=== PATIENT | male | born 1965 | race Caucasian/White ===

== ENCOUNTER → 2017-08-30 13:48 | Outpatient (POV) | payer OTHER, SELFPAY ==
[2017-08-30 15:27] LABS: Basophils % 0.2 % (0.1-2.0); Eosinophils # 0.1 K/mm3 (0.0-0.4); Eosinophils % 0.4 % (0.1-12.0); Hematocrit 35.8 % (42.0-52.0); Hemoglobin 11.1 g/dL (14.1-18.0); Lymphocytes % 9.6 K/mm3 (10-50); Mean Corpuscular HGB Conc 31.1 g/dL (31.8-35.4); Mean Corpuscular Volume 93.3 fl (80-94); Monocytes # 1.4 K/mm3 (0.1-1.0); Monocytes % 6.5 % (1.7-9.3); Neutrophils # 17.6 K/mm3 (1.8-7.8); Neutrophils % 83.4 % (37.0-80.0); Platelet Count 723 K/mm3 (142-424); Red Blood Count 3.83 M/mm3 (4.60-6.20); Red Cell Distribution Width 14.9 % (11.5-17.5); White Blood Count 21.1 K/mm3 (4.8-10.8)
[2017-08-30 15:36] LABS: MANUAL DIFFERENTIAL MANUAL DIFFERENTIAL (MANUAL DIFF)
[2017-08-30 16:45] LABS: Alanine Aminotransferase 21 U/L (12-78); Albumin Level 2.7 gm/dL (3.4-5.0); Albumin/Globulin Ratio 0.7 (1.1-1.8); Alkaline Phosphatase 86 U/L (46-116); Anion Gap 13.2 mEq/L (5-15); Aspartate Amino Transferase 11 U/L (15-37); Bilirubin,Total 0.1 mg/dL (0.2-1.0); Blood Urea Nitrogen 14 mg/dL (7-18); C-Reactive Protein 11.2 mg/L (0.0-0.9); Calcium 8.7 mg/dL (8.5-10.1); Carbon Dioxide 31 mmol/L (21.0-32.0); Chloride 103 mmol/L (98-107); Creatinine,Serum 0.72 mg/dL (0.70-1.30); Estimated Glomerular Filt Rate 116 ml/min (>60); Ferritin 91 ng/mL (8-388); GFR (African American) 140 ML/MIN (>60); Globulin 4.1 gm/dl (1.3-3.2); Glucose 93 mg/dL (74-106); Potassium 4.2 mmoL/L (3.5-5.1); Sodium 143 mmol/L (136-145); Total Protein,Serum 6.8 gm/dL (6.4-8.2)
[2017-08-30 16:46] LABS: Erythrocyte Sedimentation Rate 70 mm/hr (0-15)
[2017-08-30 16:51] LABS: Eosinophils % 3 % (0-3); Lymphocytes % 4 % (10-50); Monocytes % 15 % (2-9); Neutrophils % 74 % (42-76); Platelet Estimate Marked Increase; Total Cells Counted 100
[2017-08-30 16:52] LABS: RBC Morphology KN
[2017-09-01 08:23] LABS: Iron 12 ug/dL (38-169); UIBC 244 ug/dL (111-343)
[2017-09-01 16:20] LABS: Cytoplasmic (C-ANCA) <1:20 titer (Neg:<1:20)
[2017-09-03 10:49] LABS: Iron Saturation 5 % (15-55)
[2017-09-03 10:50] LABS: Deamidated Gliadin Abs, IgA 5 units (0-19); Deamidated Gliadin Abs, IgG 3 units (0-19); Perinuclear (P-ANCA) <1:20 titer (Neg:<1:20); Tissue Transglutaminase IgA Ab <2 U/mL (0-3); Tissue Transglutaminase IgG Ab <2 U/mL (0-5); Vitamin B12 394 pg/mL (232-1245)
[2017-09-03 11:06] LABS: Reticulin IgA Antibody Negative titer (Neg:<1:2.5)
[2017-09-03 18:12] LABS: Saccharomyces cerevisiae, IgA <20.0 Units (0.0-24.9); Saccharomyces cerevisiae, IgG <20.0 Units (0.0-24.9)
== END ==
PROVIDERS: Visit Provider Nurse Practitioner Acute Care
DX: R19.7 Diarrhea, unspecified (principal)
CPT/HCPCS: 36415; 80053; 82607; 82652; 82728; 83516; 83550; 85007; 85025; 85651; 86140; 86256

== ENCOUNTER → 2017-09-02 09:00 | Outpatient (CLI) | payer OTHER, SELFPAY ==
[2017-09-05 02:51] LABS: H. pylori Stool Ag, EIA Positive (Negative)
== END ==
PROVIDERS: PCP Nurse Practitioner Acute Care; Visit Provider Nurse Practitioner Acute Care
DX: R19.7 Diarrhea, unspecified (principal)
CPT/HCPCS: 87338

== ENCOUNTER → 2017-09-06 14:54 | Outpatient (CLI) | payer OTHER, SELFPAY ==
[2017-09-06 14:59] LABS: Adenovirus F 40/41, stool Not Detected (NotDetected); Astrovirus Not Detected (NotDetected); Campylobacter Not Detected (NotDetected); Cryptosporidium Not Detected (NotDetected); Cyclospora Cayetanesis Not Detected (NotDetected); Entamoeba histolytica Not Detected (NotDetected); Enteroaggregative E coli Not Detected (NotDetected); Enteropathogenic E coli Not Detected (NotDetected); Enterotoxigenic E coli Not Detected (NotDetected); Giardia lamblia Not Detected (NotDetected); Norovirus Not Detected (NotDetected); Plesimonas Shigalloides, PCR Not Detected (NotDetected); Rotavirus A Not Detected (NotDetected); Salmonella, PCR Not Detected (NotDetected); Sapovirus Not Detected (NotDetected); Shiga-like toxin E coli Not Detected (NotDetected); Shigella Enterovasive E coli Not Detected (NotDetected); Vibrio Cholerae Not Detected (NotDetected); Vibrio, PCR Not Detected (NotDetected); Yersinia Entercolitica, PCR Not Detected (NotDetected)
[2017-09-06 18:05] LABS: Clostridium Difficile A/B, PCR Detected (NotDetected)
== END ==
PROVIDERS: PCP Internal Medicine Gastroenterology; Visit Provider Internal Medicine Gastroenterology
DX: R19.7 Diarrhea, unspecified (principal)
CPT/HCPCS: 87507

== ENCOUNTER 2017-10-04 11:04 | Day surgery (SDC) | payer OTHER, SELFPAY ==
[2017-10-04] VITALS (16 sets, daily range): BP systolic 87–128; BP diastolic 45–75; PULSE 54–75; RESP 16–18; TEMP 36.6–37.2; O2SAT 92–100; BMI 18.7
--- NOTE | 2017-10-04 13:32 | P.PCN_ITS ---
[facility] Procedure Note Procedure Note:: Upper Endoscopy Procedure Report: Esophagogastroduodenoscopy with cold biopsies Endoscopost: Adithya Covington II, MD Referring Physician: Kade Alarcon M.D. Date of Procedure: October 04, 2017 Equipment: Olympus GIF 180 standard upper endoscope Sedation: Fentanyl 200 mg IV/ Versed 9 mg IV Indications: Mr. Hallman is a 51-year-old gentleman with lower abdominal pain and generalized abdominal discomfort. He has had a loss of appetite with a 25-30 pound weight loss. He has noted some bright red and dark bowel movements with change in bowel habits. He will have some constipation which alternates with diarrhea. The patient did have a diarrhea PCR panel that was positive for clostridium difficile. The patient did have a hemoglobin and hematocrit of 11.1 and 35.8. His IBD serologies were negative and celiac serologies were negative. His iron saturation was 5%. His H pylori antigen testing was positive and he was treated for this C. difficile with Flagyl. He has had the change in bowel habits with more diarrhea over the last year. He will get some severe abdominal crampy discomfort. He reports no known family history of colon cancer. Procedure: Prior to the procedure, a history and physical exam was performed, and patient' s medications and allergies were reviewed. The risks, benefits and alternatives of the sedation and procedure were discussed with the patient. All questions were answered and informed consent was obtained. The patient was brought to the procedure room. Patient identification and proposed procedure were verified by the physician and the nurse. The patient was placed in a left lateral decubitus position and the scope was passed under direct vision. Throughout the procedure, the patient's blood pressure, pulse, and oxygen saturations were monitored continuously. The upper GI endoscopy was accomplished without difficulty. The patient tolerated the procedure well. Findings: The scope was passed directly into the upper esophagus and advanced to the third portion of the duodenum. The post bulbar duodenum and duodenal bulb were normal with normal mucosa and conniventes. The scope was withdrawn through a normal duodenal bulb and pylorus into the stomach. There was minimal linear erythema of the antrum. The remainder of the antrum, body and fundus of the stomach were grossly normal. Upon retroflexion there was a very small 1-2 cm hiatal hernia. 2 biopsies were taken in the antrum and along the lesser curvature for histology to rule out gastritis and/or H pylori. The scope was then withdrawn into the esophagus. There was a single tongue of salmon colored mucosa that was biopsied to rule out short segment Vance's esophagus. There was no evidence of reflux esophagitis or stricturing of the esophagus. The remainder of the esophageal mucosa was normal. Impression: 1. Nonerosive GERD with very small 1-2 cm hiatal hernia biopsies taken distal esophagus to rule out very short segment Vance's esophagus 2. Very mild reactive gastritis Plan: There was no source for the patient's abdominal pain, anemia or weight loss. I will proceed with diagnostic colonoscopy for further evaluation.
--- NOTE | 2017-10-04 13:33 | HMH.PROC ---
[facility] Procedure Note Procedure Note:: Colonoscopy Procedure Report: Colonoscopy with cold biopsies Endoscopist: Adithya Covington II, MD Referring physician: Kade Alarcon M.D. Date of Procedure: October 04, 2017 Equipment: Olympus 180 variable stiffness pediatric colonoscope Sedation: Fentanyl 300 mg IV/ Versed 15 mg IV Indication: Mr. Hallman is a 51-year-old gentleman with lower abdominal pain and generalized abdominal discomfort. He has had a loss of appetite with a 25-30 pound weight loss. He has noted some bright red and dark bowel movements with change in bowel habits. He will have some constipation which alternates with diarrhea. The patient did have a diarrhea PCR panel that was positive for clostridium difficile. The patient did have a hemoglobin and hematocrit of 11.1 and 35.8. His IBD serologies were negative and celiac serologies were negative. His iron saturation was 5%. His H pylori antigen testing was positive and he was treated for this C. difficile with Flagyl. He has had the change in bowel habits with more diarrhea over the last year. He will get some severe abdominal crampy discomfort. He reports no known family history of colon cancer. Procedure: Prior to the procedure, a history and physical exam was performed, and patient's medications and allergies were reviewed. The risks, benefits and alternatives of the sedation and procedure were discussed with the patient. All questions were answered and informed consent was obtained. The patient was brought to the procedure room. Patient identification and proposed procedure were verified by the physician and the nurse. The patient was placed in a left lateral decubitus position and the scope was passed under direct vision. Throughout the procedure, the patient's blood pressure, pulse, and oxygen saturations were monitored continuously. The colonoscopy was accomplished without difficulty. The patient tolerated the procedure well. Findings: On digital rectal examination there were minor external tags there was normal rectal tone. There was a mass palpable at 9-10 cm from the anal verge that was circumferential. The scope was then inserted through the anal canal into the rectum and advanced to the rectosigmoid region where there was a circumferential apple core partially obstructive colon mass which was very friable, fungating and obviously a rectosigmoid cancer that extended approximately 7-8 cm in length and was entirely circumferential. The colonoscope could with some difficulty be pushed through the stenotic proximal region of this apple core lesion and the scope was advanced to the hepatic flexure. The scope was not advanced further because of very poor preparation with liquid and solid stool. There was some proximal dilation to the colon most likely due to partial obstruction of the colon at the level of the apple core colon cancer lesion. Multiple biopsies were taken from this lesion. Impression: 1. Apple core stenotic circumferential mass lesion of rectosigmoid consistent with partially obstructive colon cancer (distal margin 9-10 cm from anal verge) Plan: I am going to speak with colorectal surgery and determine whether they would want to have temporary colonic stent to decompress the colon and then begin staging evaluation with subsequent low anterior resection. I will obtain CEA level and staging CT scan of the abdomen and pelvis.
== END 2017-10-04 15:00 | disposition home or self-care (01) ==
LOC: OUTP 11:07
PROVIDERS: PCP Family Medicine; Visit Provider Internal Medicine Gastroenterology
PROC: 0DJ08ZZ Inspection of Upper Intestinal Tract, Via Natural or Artificial Opening Endoscopic (ICD-10-PCS; CPT 43235; principal; 2017-10-04 12:00)
DX: C18.7 Malignant neoplasm of sigmoid colon (principal); K21.9 Gastro-esophageal reflux disease without esophagitis; K44.9 Diaphragmatic hernia without obstruction or gangrene; K29.70 Gastritis, unspecified, without bleeding
CPT/HCPCS: 45380; 43239; 99152; 99153

== ENCOUNTER → 2018-04-25 14:33 | Outpatient (CLI) | payer OTHER, SELFPAY ==
[2018-04-25 15:14] LABS: Basophils % 0.6 % (0.1-2.0); Eosinophils # 0.7 K/mm3 (0.0-0.4); Eosinophils % 11.6 % (0.1-12.0); Hemoglobin 11.5 g/dL (14.1-18.0); Lymphocytes # 0.7 K/mm3 (0.7-4.5); Lymphocytes % 11.1 K/mm3 (10-50); Mean Corpuscular HGB Conc 31.9 g/dL (31.8-35.4); Mean Corpuscular Hemoglobin 31.2 pg (27.0-31.2); Mean Corpuscular Volume 97.8 fl (80-94); Mean Platelet Volume 7.2 fl (7.4-10.4); Monocytes # 0.5 K/mm3 (0.1-1.0); Monocytes % 8.8 % (1.7-9.3); Neutrophils # 3.9 K/mm3 (1.8-7.8); Neutrophils % 67.8 % (37.0-80.0); Platelet Count 423 K/mm3 (142-424); Red Blood Count 3.68 M/mm3 (4.60-6.20); Red Cell Distribution Width 13.6 % (11.5-17.5); White Blood Count 5.8 K/mm3 (4.8-10.8)
[2018-04-25 17:03] LABS: Anion Gap 10.1 mEq/L (5-15); Blood Urea Nitrogen 18 mg/dL (7-18); Carbon Dioxide 31 mmol/L (21.0-32.0); Chloride 107 mmol/L (98-107); Creatinine,Serum 0.83 mg/dL (0.70-1.30); Estimated Glomerular Filt Rate 98 ml/min (>60); GFR (African American) 118 ML/MIN (>60); Glucose 103 mg/dL (74-106); Potassium 4.1 mmoL/L (3.5-5.1); Sodium 144 mmol/L (136-145)
== END ==
PROVIDERS: PCP Internal Medicine Adolescent Medicine; Visit Provider Surgery
DX: Z95.828 Presence of other vascular implants and grafts (principal)
CPT/HCPCS: 36415; 80048; 85025

== ENCOUNTER 2018-04-28 08:54 | Outpatient (CLI) | payer OTHER, SELFPAY ==
[2018-04-28] VITALS (14 sets, daily range): BP systolic 89–122; BP diastolic 54–72; PULSE 47–57; RESP 16–18; TEMP 36.6; O2SAT 100
== END 2018-04-28 13:20 | disposition home or self-care (01) ==
LOC: INF 08:57
PROVIDERS: PCP Internal Medicine Adolescent Medicine; Visit Provider Internal Medicine Medical Oncology
DX: Z51.11 Encounter for antineoplastic chemotherapy (principal); C18.9 Malignant neoplasm of colon, unspecified
CPT/HCPCS: 96413; 96415; J7060; J9263; Q0166

== ENCOUNTER 2018-05-19 08:45 | Outpatient (CLI) | payer OTHER, SELFPAY ==
[2018-05-19] VITALS (16 sets, daily range): BP systolic 89–115; BP diastolic 62–89; PULSE 64–89; RESP 18; TEMP 36.6; O2SAT 97
[2018-05-19 09:22] LABS: Basophils % 0.6 % (0.1-2.0); Eosinophils # 0.2 K/mm3 (0.0-0.4); Eosinophils % 4.1 % (0.1-12.0); Hematocrit 42.7 % (42.0-52.0); Hemoglobin 14.1 g/dL (14.1-18.0); Lymphocytes # 0.9 K/mm3 (0.7-4.5); Lymphocytes % 15.3 K/mm3 (10-50); Mean Corpuscular HGB Conc 33.1 g/dL (31.8-35.4); Mean Corpuscular Hemoglobin 32.3 pg (27.0-31.2); Mean Corpuscular Volume 97.5 fl (80-94); Mean Platelet Volume 7.1 fl (7.4-10.4); Monocytes # 0.8 K/mm3 (0.1-1.0); Monocytes % 13.1 % (1.7-9.3); Neutrophils # 3.8 K/mm3 (1.8-7.8); Neutrophils % 66.9 % (37.0-80.0); Platelet Count 540 K/mm3 (142-424); Red Blood Count 4.37 M/mm3 (4.60-6.20); White Blood Count 5.7 K/mm3 (4.8-10.8)
[2018-05-19 09:44] LABS: Alanine Aminotransferase 27 U/L (12-78); Albumin Level 4.1 gm/dL (3.4-5.0); Alkaline Phosphatase 137 U/L (46-116); Anion Gap 15.1 mEq/L (5-15); Aspartate Amino Transferase 18 U/L (15-37); Bilirubin,Total 0.6 mg/dL (0.2-1.0); Blood Urea Nitrogen 23 mg/dL (7-18); Calcium 9.6 mg/dL (8.5-10.1); Carbon Dioxide 27 mmol/L (21.0-32.0); Chloride 93 mmol/L (98-107); Creatinine,Serum 1.45 mg/dL (0.70-1.30); Estimated Glomerular Filt Rate 51 ml/min (>60); GFR (African American) 62 ML/MIN (>60); Globulin 4.3 gm/dl (1.3-3.2); Glucose 124 mg/dL (74-106); Potassium 4.1 mmoL/L (3.5-5.1); Sodium 131 mmol/L (136-145); Total Protein,Serum 8.4 gm/dL (6.4-8.2)
== END 2018-05-19 14:50 | disposition home or self-care (01) ==
LOC: INF 08:46
PROVIDERS: PCP Internal Medicine Adolescent Medicine; Visit Provider Internal Medicine Medical Oncology
DX: Z51.11 Encounter for antineoplastic chemotherapy (principal); C18.9 Malignant neoplasm of colon, unspecified; Z23 Encounter for immunization
CPT/HCPCS: 36415; 80053; 85025; 90686; 90732; 96413; 96415; J7060; J9263; Q0166

== ENCOUNTER → 2018-05-24 09:33 | Outpatient (CLI) | payer OTHER, SELFPAY ==
[2018-05-24 11:58] LABS: Alanine Aminotransferase 32 U/L (12-78); Albumin Level 3.7 gm/dL (3.4-5.0); Alkaline Phosphatase 128 U/L (46-116); Anion Gap 12.6 mEq/L (5-15); Aspartate Amino Transferase 110 U/L (15-37); Bilirubin,Total 0.5 mg/dL (0.2-1.0); Blood Urea Nitrogen 15 mg/dL (7-18); Calcium 9.1 mg/dL (8.5-10.1); Carbon Dioxide 27 mmol/L (21.0-32.0); Chloride 98 mmol/L (98-107); Creatinine,Serum 0.94 mg/dL (0.70-1.30); Estimated Glomerular Filt Rate 85 ml/min (>60); GFR (African American) 102 ML/MIN (>60); Globulin 3.7 gm/dl (1.3-3.2); Glucose 91 mg/dL (74-106); Potassium 4.6 mmoL/L (3.5-5.1); Sodium 133 mmol/L (136-145); Total Protein,Serum 7.4 gm/dL (6.4-8.2)
== END ==
PROVIDERS: Visit Provider Internal Medicine Medical Oncology
DX: C18.9 Malignant neoplasm of colon, unspecified (principal)
CPT/HCPCS: 36415; 80053

== ENCOUNTER 2018-06-09 10:11 | Outpatient (CLI) | payer OTHER, SELFPAY ==
[2018-06-09] VITALS (16 sets, daily range): BP systolic 85–112; BP diastolic 52–83; PULSE 53–74; RESP 16–18; TEMP 37.1; BMI 19.3
[2018-06-09 10:40] LABS: Basophils # 0.1 K/mm3 (0-0.2); Basophils % 0.9 % (0.1-2.0); Eosinophils # 0.5 K/mm3 (0.0-0.4); Eosinophils % 10.1 % (0.1-12.0); Hematocrit 35.7 % (42.0-52.0); Hemoglobin 11.9 g/dL (14.1-18.0); Lymphocytes # 0.8 K/mm3 (0.7-4.5); Lymphocytes % 17.3 % (10-50); Mean Corpuscular HGB Conc 33.3 g/dL (31.8-35.4); Mean Corpuscular Hemoglobin 33.2 pg (27.0-31.2); Mean Corpuscular Volume 99.7 fl (80-94); Mean Platelet Volume 7.5 fl (7.4-10.4); Monocytes # 0.7 K/mm3 (0.1-1.0); Monocytes % 14.6 % (1.7-9.3); Neutrophils # 2.8 K/mm3 (1.8-7.8); Neutrophils % 57.1 % (37.0-80.0); Platelet Count 381 K/mm3 (142-424); Red Blood Count 3.58 M/mm3 (4.60-6.20); Red Cell Distribution Width 21.1 % (11.5-17.5); White Blood Count 4.8 K/mm3 (4.8-10.8)
[2018-06-09 11:13] LABS: Alanine Aminotransferase 31 U/L (12-78); Albumin Level 3.5 gm/dL (3.4-5.0); Albumin/Globulin Ratio 0.8 (1.1-1.8); Alkaline Phosphatase 106 U/L (46-116); Anion Gap 11.3 mEq/L (5-15); Aspartate Amino Transferase 24 U/L (15-37); Bilirubin,Total 0.4 mg/dL (0.2-1.0); Blood Urea Nitrogen 13 mg/dL (7-18); Calcium 9.3 mg/dL (8.5-10.1); Carbon Dioxide 31 mmol/L (21.0-32.0); Chloride 97 mmol/L (98-107); Creatinine Clearance Estimated 92 mL/min (0-300); Creatinine,Serum 0.94 mg/dL (0.70-1.30); Estimated Glomerular Filt Rate 85 ml/min (>60); GFR (African American) 102 ML/MIN (>60); Globulin 4.3 gm/dl (1.3-3.2); Glucose 117 mg/dL (74-106); Potassium 3.3 mmoL/L (3.5-5.1); Sodium 136 mmol/L (136-145); Total Protein,Serum 7.8 gm/dL (6.4-8.2)
== END 2018-06-09 15:35 | disposition home or self-care (01) ==
LOC: INF 10:11
PROVIDERS: Visit Provider Internal Medicine Medical Oncology
DX: Z51.11 Encounter for antineoplastic chemotherapy (principal); C18.9 Malignant neoplasm of colon, unspecified
CPT/HCPCS: 80053; 85025; 96413; 96415; J7060; J9263; Q0166

== ENCOUNTER 2018-06-30 08:15 | Outpatient (CLI) | payer OTHER, SELFPAY ==
[2018-06-30] VITALS (15 sets, daily range): BP systolic 92–131; BP diastolic 57–76; PULSE 49–74; RESP 16–18; O2SAT 100; BMI 19.3
[2018-06-30 08:36] LABS: Basophils # 0.1 K/mm3 (0-0.2); Basophils % 1.2 % (0.1-2.0); Eosinophils # 0.4 K/mm3 (0.0-0.4); Eosinophils % 8.8 % (0.1-12.0); Hematocrit 36.3 % (42.0-52.0); Hemoglobin 11.7 g/dL (14.1-18.0); Lymphocytes # 0.8 K/mm3 (0.7-4.5); Mean Corpuscular HGB Conc 32.3 g/dL (31.8-35.4); Mean Corpuscular Hemoglobin 33.9 pg (27.0-31.2); Mean Corpuscular Volume 104.9 fl (80-94); Mean Platelet Volume 7.3 fl (7.4-10.4); Monocytes # 0.7 K/mm3 (0.1-1.0); Monocytes % 15.3 % (1.7-9.3); Neutrophils # 2.5 K/mm3 (1.8-7.8); Neutrophils % 56.7 % (37.0-80.0); Platelet Count 346 K/mm3 (142-424); Red Blood Count 3.46 M/mm3 (4.60-6.20); Red Cell Distribution Width 24.4 % (11.5-17.5); White Blood Count 4.4 K/mm3 (4.8-10.8)
[2018-06-30 08:48] LABS: Alanine Aminotransferase 38 U/L (12-78); Albumin Level 3.4 gm/dL (3.4-5.0); Albumin/Globulin Ratio 0.8 (1.1-1.8); Alkaline Phosphatase 106 U/L (46-116); Anion Gap 14.5 mEq/L (5-15); Aspartate Amino Transferase 24 U/L (15-37); Bilirubin,Total 0.4 mg/dL (0.2-1.0); Blood Urea Nitrogen 17 mg/dL (7-18); Calcium 8.8 mg/dL (8.5-10.1); Carbon Dioxide 26 mmol/L (21.0-32.0); Chloride 100 mmol/L (98-107); Creatinine Clearance Estimated 106 mL/min (50-200); Creatinine,Serum 0.82 mg/dL (0.70-1.30); Estimated Glomerular Filt Rate 99 ml/min (>60); GFR (African American) 120 ML/MIN (>60); Globulin 4.3 gm/dl (1.3-3.2); Glucose 97 mg/dL (74-106); Potassium 3.5 mmoL/L (3.5-5.1); Sodium 137 mmol/L (136-145); Total Protein,Serum 7.7 gm/dL (6.4-8.2)
== END 2018-06-30 14:45 | disposition home or self-care (01) ==
LOC: INF 08:15
PROVIDERS: Visit Provider Internal Medicine Medical Oncology
DX: Z51.11 Encounter for antineoplastic chemotherapy (principal); C18.9 Malignant neoplasm of colon, unspecified
CPT/HCPCS: 80053; 85025; 96413; 96415; J7060; J9263; Q0166

== ENCOUNTER 2018-07-21 08:25 | Outpatient (CLI) | payer OTHER, SELFPAY ==
[2018-07-21] VITALS (15 sets, daily range): BP systolic 96–123; BP diastolic 56–78; PULSE 43–56; RESP 16–18; TEMP 36.6–36.8; BMI 19.1
[2018-07-21 09:12] LABS: Basophils % 0.6 % (0.1-2.0); Eosinophils # 0.4 K/mm3 (0.0-0.4); Eosinophils % 7.4 % (0.1-12.0); Hematocrit 32.6 % (42.0-52.0); Hemoglobin 10.7 g/dL (14.1-18.0); Lymphocytes # 0.8 K/mm3 (0.7-4.5); Lymphocytes % 14.9 % (10-50); Mean Corpuscular HGB Conc 32.9 g/dL (31.8-35.4); Mean Corpuscular Hemoglobin 36.6 pg (27.0-31.2); Mean Corpuscular Volume 111.3 fl (80-94); Monocytes # 0.7 K/mm3 (0.1-1.0); Monocytes % 13.2 % (1.7-9.3); Neutrophils # 3.3 K/mm3 (1.8-7.8); Neutrophils % 63.8 % (37.0-80.0); Platelet Count 236 K/mm3 (142-424); Red Blood Count 2.93 M/mm3 (4.60-6.20); Red Cell Distribution Width 24.4 % (11.5-17.5); White Blood Count 5.2 K/mm3 (4.8-10.8)
[2018-07-21 09:19] LABS: Alanine Aminotransferase 36 U/L (12-78); Albumin Level 2.9 gm/dL (3.4-5.0); Albumin/Globulin Ratio 0.7 (1.1-1.8); Alkaline Phosphatase 110 U/L (46-116); Anion Gap 12.7 mEq/L (5-15); Aspartate Amino Transferase 29 U/L (15-37); Bilirubin,Total 0.3 mg/dL (0.2-1.0); Blood Urea Nitrogen 9 mg/dL (7-18); Calcium 8.6 mg/dL (8.5-10.1); Carbon Dioxide 25 mmol/L (21.0-32.0); Chloride 105 mmol/L (98-107); Creatinine Clearance Estimated 100 mL/min (50-200); Creatinine,Serum 0.86 mg/dL (0.70-1.30); Estimated Glomerular Filt Rate 94 ml/min (>60); GFR (African American) 113 ML/MIN (>60); Glucose 142 mg/dL (74-106); Potassium 3.7 mmoL/L (3.5-5.1); Sodium 139 mmol/L (136-145); Total Protein,Serum 6.9 gm/dL (6.4-8.2)
== END 2018-07-21 14:25 | disposition home or self-care (01) ==
LOC: INF 08:34
PROVIDERS: Visit Provider Internal Medicine Medical Oncology
DX: C18.9 Malignant neoplasm of colon, unspecified (principal)
CPT/HCPCS: 80053; 85025; 96413; 96415; J7060; J9263; Q0166

== ENCOUNTER 2018-08-11 09:25 | Outpatient (CLI) | payer OTHER, SELFPAY ==
[2018-08-11] VITALS (15 sets, daily range): BP systolic 95–129; BP diastolic 56–73; PULSE 49–67; RESP 16–18; BMI 19.5
[2018-08-11 09:54] LABS: Basophils # 0.1 K/mm3 (0-0.2); Eosinophils # 0.3 K/mm3 (0.0-0.4); Eosinophils % 7.2 % (0.1-12.0); Hematocrit 36.4 % (42.0-52.0); Hemoglobin 11.7 g/dL (14.1-18.0); Lymphocytes # 1.1 K/mm3 (0.7-4.5); Lymphocytes % 23.4 % (10-50); Mean Corpuscular HGB Conc 32.2 g/dL (31.8-35.4); Mean Corpuscular Hemoglobin 37.3 pg (27.0-31.2); Mean Corpuscular Volume 115.8 fl (80-94); Mean Platelet Volume 7.9 fl (7.4-10.4); Monocytes # 0.8 K/mm3 (0.1-1.0); Monocytes % 18.3 % (1.7-9.3); Neutrophils # 2.2 K/mm3 (1.8-7.8); Neutrophils % 50.1 % (37.0-80.0); Platelet Count 274 K/mm3 (142-424); Red Blood Count 3.14 M/mm3 (4.60-6.20); Red Cell Distribution Width 23.3 % (11.5-17.5); White Blood Count 4.5 K/mm3 (4.8-10.8)
[2018-08-11 10:06] LABS: Alanine Aminotransferase 32 U/L (12-78); Albumin Level 3.2 gm/dL (3.4-5.0); Albumin/Globulin Ratio 0.7 (1.1-1.8); Alkaline Phosphatase 145 U/L (46-116); Anion Gap 12.8 mEq/L (5-15); Aspartate Amino Transferase 30 U/L (15-37); Bilirubin,Total 0.4 mg/dL (0.2-1.0); Blood Urea Nitrogen 11 mg/dL (7-18); Calcium 8.9 mg/dL (8.5-10.1); Carbon Dioxide 26 mmol/L (21.0-32.0); Chloride 102 mmol/L (98-107); Creatinine Clearance Estimated 128 mL/min (50-200); Estimated Glomerular Filt Rate 119 ml/min (>60); GFR (African American) 144 ML/MIN (>60); Globulin 4.5 gm/dl (1.3-3.2); Glucose 122 mg/dL (74-106); Potassium 3.8 mmoL/L (3.5-5.1); Sodium 137 mmol/L (136-145); Total Protein,Serum 7.7 gm/dL (6.4-8.2)
== END 2018-08-11 16:05 | disposition home or self-care (01) ==
LOC: INF 09:29
PROVIDERS: Visit Provider Internal Medicine Medical Oncology
DX: Z51.11 Encounter for antineoplastic chemotherapy (principal); C18.9 Malignant neoplasm of colon, unspecified
CPT/HCPCS: 80053; 85025; 96413; 96415; J7060; J9263; Q0166

== ENCOUNTER 2018-09-01 10:07 | Outpatient (CLI) | payer OTHER, SELFPAY ==
[2018-09-01 10:27] LABS: Basophils # 0.1 K/mm3 (0-0.2); Eosinophils # 0.5 K/mm3 (0.0-0.4); Eosinophils % 9.9 % (0.1-12.0); Hematocrit 36.5 % (42.0-52.0); Hemoglobin 11.7 g/dL (14.1-18.0); Lymphocytes # 1.1 K/mm3 (0.7-4.5); Lymphocytes % 23.5 % (10-50); Mean Platelet Volume 8.5 fl (7.4-10.4); Monocytes # 0.8 K/mm3 (0.1-1.0); Monocytes % 17.2 % (1.7-9.3); Neutrophils # 2.2 K/mm3 (1.8-7.8); Neutrophils % 48.4 % (37.0-80.0); Platelet Count 263 K/mm3 (142-424); Red Blood Count 3.07 M/mm3 (4.60-6.20); Red Cell Distribution Width 21.9 % (11.5-17.5); White Blood Count 4.5 K/mm3 (4.8-10.8)
[2018-09-01 10:39] LABS: Alanine Aminotransferase 29 U/L (12-78); Albumin Level 3.1 gm/dL (3.4-5.0); Albumin/Globulin Ratio 0.8 (1.1-1.8); Alkaline Phosphatase 146 U/L (46-116); Aspartate Amino Transferase 36 U/L (15-37); Bilirubin,Total 0.5 mg/dL (0.2-1.0); Blood Urea Nitrogen 14 mg/dL (7-18); Carbon Dioxide 26 mmol/L (21.0-32.0); Chloride 105 mmol/L (98-107); Creatinine Clearance Estimated 117 mL/min (50-200); Creatinine,Serum 0.77 mg/dL (0.70-1.30); Estimated Glomerular Filt Rate 107 ml/min (>60); GFR (African American) 129 ML/MIN (>60); Globulin 4.1 gm/dl (1.3-3.2); Glucose 136 mg/dL (74-106); Sodium 138 mmol/L (136-145); Total Protein,Serum 7.2 gm/dL (6.4-8.2)
== END 2018-09-01 10:20 | disposition home or self-care (01) ==
LOC: INF 10:07
PROVIDERS: Visit Provider Internal Medicine Medical Oncology
DX: C18.9 Malignant neoplasm of colon, unspecified (principal)
CPT/HCPCS: 80053; 85025; J1642

== ENCOUNTER → 2018-11-14 08:29 | Outpatient (CLI) | payer OTHER, SELFPAY ==
--- NOTE | 2018-11-14 08:32 | CT_ITS ---
CT chest wo/w con HISTORY: Follow-up colon cancer ITS.REASON: COLON CA ORDERING PHYSICIAN: Anastasia Alba MD PATIENT AGE: 52 years COMPARISON: None Technique: Axial images obtained without and following the administration of 75 mL of Optiray 350 . Sagittal, and coronal reformatted images are also generated and reviewed. All CT scans at the facility use one or more dose reduction, viz: automated exposure control, ma/kV adjustment per patient size (including targeted exams where dose is matched to indication, i.e. head), or iterative reconstruction technique. FINDINGS: There is a Mediport catheter present via left subclavian approach. No mediastinal or hilar adenopathy is evident. No mediastinal or hilar mass. Normal heart size without evidence of pericardial effusion. Aortic aneurysm or dissection. No central pulmonary embolus. No bony destructive process. In the right upper lobe there is a 10 x 7 mm lobulated nodular opacity. This is indeterminate. Faint nodular density in the right middle lobe 3 mm. Fibrotic changes are present in the right lobe inferiorly. There is a calcified granuloma in the right lower lobe medially. There are atelectatic or fibrotic changes in the right apex. A thin-walled air cyst is noted in the right upper lobe centrally at 16 mm. IMPRESSION: There is an indeterminate 10 x 7 mm nodular opacity in the right upper lobe near the major fissure. This has a somewhat irregular appearance. This could be due to an area of fibrosis versus a developing neoplastic nodule. Short-term follow-up suggested. No other suspicious nodules are evident. No effusions or infiltrates. No mediastinal or hilar adenopathy.
--- NOTE | 2018-11-14 08:32 | CT_ITS ---
CT abdomen pelvis wo/w con CLINICAL INDICATION: Follow-up colon cancer ITS.REASON: COLON CA ORDERING PHYSICIAN: Anastasia Alba MD PATIENT AGE: 52 years COMPARISON: None TECHNIQUE: Axial images obtained without and with contrast with sagittal and coronal reformats. All CT scans at the facility use one or more dose reduction, viz: automated exposure control, ma/kV adjustment per patient size (including targeted exams where dose is matched to indication, i.e. head), or iterative reconstruction technique. PROCEDURE: Oral Contrast: None IV Contrast: 75 mL's Optiray 350 performed in conjunction with the chest CT. FINDINGS: The liver has an unremarkable appearance. There is heterogeneous density of the spleen which may be due to effusion abnormality. The adrenal glands and pancreas are unremarkable. No renal mass or renal calculi or hydronephrosis evident. No evidence of retroperitoneal adenopathy. There is some stranding of the pericolic fat in the left upper quadrant at the splenic flexure region. Moderate amount retained colonic feces throughout the colon. There is a suture line at the lower rectum and also one in the small bowel in the right upper quadrant. There are nonspecific fluid-filled loops of small bowel without distention. No pelvic mass or abnormal fluid collection is evident. No bony destructive process. IMPRESSION: 1. No evidence of hepatic or adrenal metastasis. 2. There is heterogeneous density of the spleen which may be due to differential perfusion. 3. Postsurgical changes of the anus and small bowel in the right mid abdominal region. 4. There is a moderate amount retained colonic feces throughout the colon and fluid-filled loops of small bowel which are nonspecific but could be due to enteritis or ileus.
== END ==
PROVIDERS: PCP Internal Medicine Medical Oncology; Visit Provider Internal Medicine Medical Oncology
DX: C18.9 Malignant neoplasm of colon, unspecified (principal); C19 Malignant neoplasm of rectosigmoid junction
CPT/HCPCS: 71270; 74178; Q9967

== ENCOUNTER → 2019-01-23 07:39 | Outpatient (CLI) | payer OTHER, SELFPAY ==
[2019-01-23 08:14] LABS: Basophils # 0.1 K/mm3 (0-0.2); Basophils % 0.7 % (0.1-2.0); Eosinophils # 0.6 K/mm3 (0.0-0.4); Eosinophils % 9.4 % (0.1-12.0); Hematocrit 38.1 % (42.0-52.0); Hemoglobin 11.7 g/dL (14.1-18.0); Lymphocytes % 15.9 % (10-50); Mean Corpuscular HGB Conc 30.8 g/dL (31.8-35.4); Mean Corpuscular Hemoglobin 29.7 pg (27.0-31.2); Mean Corpuscular Volume 96.7 fl (80-94); Mean Platelet Volume 7.5 fl (7.4-10.4); Monocytes # 0.6 K/mm3 (0.1-1.0); Monocytes % 8.9 % (1.7-9.3); Neutrophils # 4.2 K/mm3 (1.8-7.8); Platelet Count 462 K/mm3 (142-424); Red Blood Count 3.94 M/mm3 (4.60-6.20); Red Cell Distribution Width 14.8 % (11.5-17.5); White Blood Count 6.4 K/mm3 (4.8-10.8)
[2019-01-23 09:09] LABS: Alanine Aminotransferase 19 U/L (12-78); Albumin Level 3.4 gm/dL (3.4-5.0); Alkaline Phosphatase 113 U/L (46-116); Anion Gap 15.4 mEq/L (5-15); Aspartate Amino Transferase 16 U/L (15-37); Bilirubin,Total 0.4 mg/dL (0.2-1.0); Blood Urea Nitrogen 19 mg/dL (7-18); Calcium 9.1 mg/dL (8.5-10.1); Carbon Dioxide 27 mmol/L (21.0-32.0); Chloride 104 mmol/L (98-107); Creatinine,Serum 0.81 mg/dL (0.70-1.30); Estimated Glomerular Filt Rate 100 ml/min (>60); GFR (African American) 121 ML/MIN (>60); Globulin 3.4 gm/dl (1.3-3.2); Glucose 93 mg/dL (74-106); Potassium 4.4 mmoL/L (3.5-5.1); Sodium 142 mmol/L (136-145); Total Protein,Serum 6.8 gm/dL (6.4-8.2)
[2019-01-23 12:17] LABS: Hemoglobin A1C 5.9 % (0.0-7.0)
[2019-01-25 17:40] LABS: Folate 13.4 ng/mL (>3.0); Vitamin B12 277 pg/mL (232-1245)
== END ==
PROVIDERS: Visit Provider Specialist
DX: C18.9 Malignant neoplasm of colon, unspecified (principal); C20 Malignant neoplasm of rectum; G62.9 Polyneuropathy, unspecified; M79.601 Pain in right arm; M79.604 Pain in right leg; M79.605 Pain in left leg; R20.2 Paresthesia of skin; R73.9 Hyperglycemia, unspecified
CPT/HCPCS: 36415; 80053; 82607; 82746; 83036; 85025

== ENCOUNTER → 2019-01-23 07:51 | Outpatient (POV) | payer OTHER, SELFPAY | PROVIDERS: Visit Provider Specialist | DX: M79.604 Pain in right leg (principal); M79.605 Pain in left leg; R20.2 Paresthesia of skin; M79.601 Pain in right arm | CPT/HCPCS: 95886; 95911 ==

== ENCOUNTER 2019-01-30 07:15 | Inpatient (IN) ==
[2019-01-30 07:50] LABS: Basophils # 0.1 K/mm3 (0-0.2); Basophils % 0.3 % (0.1-2.0); Eosinophils # 0.2 K/mm3 (0.0-0.4); Eosinophils % 1.3 % (0.1-12.0); Hematocrit 47.8 % (42.0-52.0); Hemoglobin 15.3 g/dL (14.1-18.0); Lymphocytes # 0.8 K/mm3 (0.7-4.5); Lymphocytes % 4.4 % (10-50); Mean Corpuscular Volume 98.7 fl (80-94); Mean Platelet Volume 7.9 fl (7.4-10.4); Monocytes % 5.5 % (1.7-9.3); Neutrophils # 16.2 K/mm3 (1.8-7.8); Neutrophils % 88.5 % (37.0-80.0); Platelet Count 553 K/mm3 (142-424); Red Blood Count 4.84 M/mm3 (4.60-6.20); Red Cell Distribution Width 15.3 % (11.5-17.5); White Blood Count 18.3 K/mm3 (4.8-10.8)
[2019-01-30 08:03] LABS: Albumin/Globulin Ratio 0.9 (1.1-1.8); Anion Gap 16.6 mEq/L (5-15); Bilirubin,Total 0.7 mg/dL (0.2-1.0); Calcium 9.4 mg/dL (8.5-10.1); Globulin 4.5 gm/dl (1.3-3.2); Total Protein,Serum 8.5 gm/dL (6.4-8.2)
--- NOTE | 2019-01-30 08:09 | Emergency Department Note ---
ED Disposition Clinical Impression: Small bowel obstruction, partial Disposition: Xfer Short-Term Hosp Condition on Discharge: Good Instructions: DI for Acute Abdomen Referrals: Provider,Referral, [Primary Care Provider] - Time of Disposition: 14:28 - Critical Care Critical Care Time: No Attestation: On 01/30/19, the high probability of a clinically significant, sudden or life threatening deterioration of the following system(s) required my full and direct attention, intervention and personal management. The time I documented below is in addition to time spent performing reported procedures but includes the following listed in this critical care notation. Medical Decision Making - Medical Records Medical records reviewed: Yes: I reviewed the patient's medical records. - Ty Inquiry Pt receiving controlled substance: No Ty was queried for this patient: No Reason not queried -: Emergent pt cond-no time Vital Signs: 01/30/19 07:30 01/30/19 08:49 01/30/19 10:29 Temperature 98.4 F Temperature Source Oral Pulse Rate [Left Radial] 90 74 64 Respiratory Rate 18 16 Blood Pressure [Right Arm] 121/70 111/65 165/97 H Blood Pressure Mean [Right Arm] 87 80 119 Blood Pressure Source [Right Arm] Automatic Cuff Automatic Cuff Blood Pressure Position [Right Arm] Sitting Left Lateral 02 Sat by Pulse Oximetry 98 97 97 Oxygen Delivery Method Room Air Room Air 01/30/19 13:55 Temperature Temperature Source Pulse Rate [Left Radial] 68 Respiratory Rate Blood Pressure [Right Arm] 92/61 L Blood Pressure Mean [Right Arm] 71 Blood Pressure Source [Right Arm] Blood Pressure Position [Right Arm] 02 Sat by Pulse Oximetry 99 Oxygen Delivery Method - Lab Data Lab Results 01/30/19 07:30: WBC 18.3 H, RBC 4.84, Hgb 15.3, Hct 47.8, MCV 98.7 H, MCH 31.6 H , MCHC 32.0, RDW 15.3, Plt Count 553 H, MPV 7.9, Neut % (Auto) 88.5 H, Lymph % (Auto) 4.4 L, Miller % (Auto) 5.5, Eos % (Auto) 1.3, Baso % (Auto) 0.3, Neut # (Auto) 16.2 H, Lymph # (Auto) 0.8, Miller # (Auto) 1.0, Eos # (Auto) 0.2, Baso # (Auto) 0.1, Total Counted 100, Neutrophils % (Manual) 78 H, Band Neutrophils % 1 3.0 H, Lymphocytes % (Manual) 4 L, Monocytes % (Manual) 4, Myelocytes % 1, Platelet Estimate Slight increase, Macrocytosis 1+ 01/30/19 07:30: Sodium 139, Potassium 3.6, Chloride 97 L, Carbon Dioxide 29, Anion Gap 16.6 H, BUN 18, Creatinine 1.05, Estimated Creat Clear 84, Estimated GFR 74, Est GFR ( Amer) 90, Glucose 153 H, Calcium 9.4, Total Bilirubin 0.7, AST 20, ALT 23, Alkaline Phosphatase 133 H, Total Protein 8.5 H, Albumin 4.0, Globulin 4.5 H, Albumin/Globulin Ratio 0.9 L, Amylase 20 L, Lipase 95 01/30/19 09:40: Urine Color Yellow, Urine Appearance Sl cloudy, Urine pH 5.5, Ur Specific [place] 1.010, Urine Protein 1+, Urine Glucose (UA) Negative, Urine Ketones Negative, Urine Blood Negative, Urine Nitrate Negative, Urine Bilirubin Negative, Urine Urobilinogen 0.2, Ur Leukocyte Esterase Negative, Urine WBC Occasional, Ur Squamous Epith Cells Occasional, Urine Bacteria 1+ Result diagrams: 01/30/19 07:30 01/30/19 07:30 Orders (Tests/Meds): ED MEDICATIONS Discontinued Medications Generic Name Dose Route Start Last Admin Trade Name Andrezq PRN Reason Stop Dose Admin Diatrizoate Meglum/Diatrizoate Sod 30 ml 01/30/19 09:59 01/30/19 10:10 Gastrografin 66%-10% 30ml PO 01/30/19 10:00 30 ml ONCE ONE Administration Hydromorphone HCl 1 mg 01/30/19 08:05 01/30/19 08:10 Dilaudid 2mg/Ml Syringe IV 01/30/19 08:06 1 mg ONCE ONE Administration Hydromorphone HCl 1 mg 01/30/19 10:15 01/30/19 10:22 Dilaudid 2mg/Ml Syringe IV 01/30/19 10:16 1 mg ONCE ONE Administration Sodium Chloride 1,000 mls @ 999 mls/hr 01/30/19 07:45 01/30/19 07:40 Sod Chlor 0.9% 1000ml Bag IV 01/30/19 08:45 999 mls/hr .Q1H1M DANA Administration Ioversol 75 ml 01/30/19 08:25 01/30/19 08:26 Rad-Optiray 350 100ml Vial IV 01/30/19 08:26 75 ml ONCE ONE Administration Protocol Ketorolac Tromethamine 30 mg 01/30/19 07:36 01/30/19 07:40 Toradol 30mg/Ml Vial IV 01/30/19 07:37 30 mg ONCE ONE Administration Methylprednisolone Sodium Succinate 125 mg 01/30/19 10:06 01/30/19 10:11 Solu-Medrol 125mg/2ml Vial IV 01/30/19 10:07 Not Given ONCE ONE Methylprednisolone Sodium Succinate 125 mg 01/30/19 10:10 01/30/19 10:22 Solu-Medrol 125mg/2ml Vial IV 01/30/19 10:11 125 mg ONCE ONE Administration Ondansetron HCl 4 mg 01/30/19 07:36 01/30/19 07:40 Zofran 4mg/2ml Vial IV 01/30/19 07:37 4 mg ONCE ONE Administration Promethazine HCl 12.5 mg 01/30/19 10:09 01/30/19 10:11 Phenergan 25mg/Ml 1ml Vial IV 01/30/19 10:10 12.5 mg ONCE ONE Administration Sodium Chloride 10 ml 01/30/19 08:25 01/30/19 08:26 Rad-Saline Flush 10ml Syringe IV 01/30/19 08:26 10 ml ONCE ONE Administration Sodium Chloride 25 ml 01/30/19 10:09 01/30/19 10:10 Sod Chlor 0.9% 25ml Bag IV 01/30/19 10:10 25 ml ONCE ONE Administration - Physician Consults Time: 14:12 Reason -: Surgical Eval/Care Comment/Response: transfer to [facility] to floor bed. Will call when bed's available Medical Decision Narrative: Mom explained whe he was in [place] that his dog three days ago, one who hd helped him through his cancer treatments. he's been tking it hard Abdominal Pain HPI - General Chief Complaint: Abdominal Pain Stated Complaint: vomiting all nite Time Seen by Provider: 01/30/19 08:07 Mode of Arrival: Ambulatory Source of Information: Patient Limitations: No Limitations Description of Symptoms (Recalled from ER Triage Doc. by RN): c/o all over abdomen pain and vomiting all night. States he was just in [place] after we transferred him about a month ago for the same thing, they kept him for 3 days and didnt give him anything to drink or eat and he got better and they released him. - History of Present Illness HPI narrative: one previous bowel obstruction, evaluated at [facility]. No further surgeries. - Related Data Home Medications Medication Instructions Recorded Confirmed gabapentin 300 mg capsule 300 mg PO TID 11/17/18 01/30/19 Duloxetine HCl [Cymbalta] 30 mg PO DAILY 01/30/19 01/30/19 Mecobal/Levomefolat Ca/B6 Phos 1 tab PO DAILY 01/30/19 01/30/19 [Foltanx] Allergies Allergy/AdvReac Type Severity Reaction Status Date / Time acetaminophen [From Tylenol] AdvReac Mild Nausea Verified 12/19/18 09:31 [facility] History - Hepatitis A Screen Drug use history?: No High risk sexual behaviors?: No History of sexually transmitted infection?: No Currently employed?: No Childcare worker?: No Do you have indoor plumbing?: Yes Do you have electricity?: Yes Attestation statement:: This patient has been screened for Hepatitis A risk factors. Medical History: Reports:: Cancer Denies:: Diabetes Mellitus Type 1, Diabetes Mellitus Type 2, Internal Pace maker, Lung Disease, MRSA, Seizures Other Medical History: Reports: Anemia. Denies: Blood Transfusion Reaction Laterality Cases: Right: ACL Repair Other Surgeries: Yes: Cancer Surgery, Colonoscopy, Colon Resection, Colostomy (reversed), Diagnostic Lap, Splenectomy, Other (L5-S1 disc, Right ACL). No: Pacemaker Amputation: No Fractures: Yes (LEFT WRIST) Comment: ACL RECONSTRUCTION ON RIGHT KNEE, L1,L5,EXPLORATORY SURGERY, port cath placement - Social History Smoking Status: Current every day smoker # Packs/Day (cigarettes): 1 #Yrs smoked (if former smoker): 10 Alcohol Intake: current Alcohol Intake Frequency:: holidays/special occasions only Substance Use Type: denies use Occupational Status: unemployed Housing: house Household Members: family - Psychiatric History Expresses thoughts of harming self/others: None Suicide Plan Description: No Plan Family Hx:: Cancer, Hypertension Comment: MS BRANDON Obtained: Yes All systems reviewed & no additional complaints - Constitutional Constitutional: Reports chills, Denies fever(s) - Cardiovascular Cardiovascular: Denies chest pain, Denies dyspnea, Denies pedal edema, Denies rapid heart rate, Denies slow heart rate - Respiratory Respiratory: No dyspnea, No excessive phlegm production, No pain on inspiration - Gastrointestinal Gastrointestingal: Reports: abdominal pain, nausea, vomiting, other (yellow emesis). Denies: diarrhea - Musculoskeletal Musculoskeletal: Reports joint swelling, Reports limited range of motion, Reports muscle aches, Reports tingling - Neurologic Neurologic: Denies abnormal speech, Denies behavioral changes, Denies frequent falls, Denies sensory deficit, Denies vertigo, Denies weakness - Hematologic/Lymphatic Henatologic/Lymphatic: Denies system reviewed and no additional complaints, except as docu Physical Exam - General General appearance: alert, in no apparent distress - Head Head exam: atraumatic, normocephalic, normal inspection - ENT ENT exam: Present: normal exam, normal oropharynx, mucous membranes moist, TM's normal bilaterally, normal external ear exam - Neck Neck exam: Present: normal inspection, full ROM, trachea midline. Absent: meningismus, lymphadenopathy - Chest Chest inspection: Present: normal inspection - Respiratory Respiratory exam: Present: normal lung sounds bilaterally. Absent: respiratory distress - Cardiovascular Cardiovascular exam: Present: regular rate - Abdominal Exam Abdominal exam: Present: soft, tenderness, hyperactive bowel sounds, mass, other (below ostomy revision ? scar ). Absent: distention, organomegaly, ascites Abdominal tenderness: Absent: LLQ, mild - exam: Present: normal inspection - Neurological Exam Neurological exam: Present: alert - Psychiatric Psychiatric exam: Present: normal affect, normal mood - Skin Skin exam: Present: warm, dry, intact, normal color - Lymphatic Lymphatic Findings: no adenopathy
[2019-01-30 08:39] LABS: Lymphocytes % 4 % (10-50); Macrocytosis 1+; Monocytes % 4 % (2-9); Myelocytes % 1 (0-1); Neutrophils % 78 % (42-76); Total Cells Counted 100
[2019-01-30 09:58] LABS: Microscopic, Urine URINE MICROSCOPIC (MICROSCOPIC)
[2019-01-30 10:06] LABS: Appearance,Urine SL CLOUDY (Clear); Blood, Urine Negative (Negative); Color,Urine YELLOW (Yellow); Glucose,Urine (UA) Negative (Negative); Ketones,Urine Negative (Negative); Leukocyte Esterase,Urine Negative (Negative); PH,Urine 5.5 (5.0-8.5); Protein,Urine 1+ (Negative); Urobilinogen,Urine 0.2 EU/dl (0.2)
[2019-01-30 10:16] LABS: Bacteria,Urine 1+ /lpf; Bilirubin,Urine Negative (Negative); Squamous Epithelial Cell,Urine Occasional #/hpf (0-5); WBC,Urine Occasional #/hpf (0-3)
--- NOTE | 2019-01-30 15:35 | History & Physical Report ---
*Admission Date: 01/30/19 <FraireKizzyAmy - 01/30/19 15:45> *Chief complaint: abdominal pain with nausea and vomiting <FraireAmy 01/30/19 15:45> *History of present illness: Mr. Hallman is a 53-year-old male patient who presented to the emergency room after experiencing severe abdominal pain associated with nausea and vomiting which started last p.m. 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 He has completed his chemotherapy this year and had a colostomy reversal in September of this year. He is followed by Dr. Alba. He gives a history of having a colon obstruction last month at which time he did present to [facility] emergency room and was transferred to . He was treated with GI rest and remained in the hospital for 3 days at that time. With this presentation the plan was to transfer him back to [facility] for care but the bed has not become available. Thus he was admitted to [facility] for treatment. In the emergency room he had a CT scan of the abdomen/pelvis which showed a partial small bowel obstruction and to consider enteritis with ileus. Follow-up scan 4 hours later revealed some mild persistent thickening of the distal aspect of the ilium proximal to the terminal ileum consistent with enteritis. The small bowel was noted to be dilated proximal to this region but improved from the original study reported today 4 hours earlier. This was thought possibly related to improvement in partial small bowel obstruction or improvement in ileus. A complete or high-grade bowel obstruction was not present. Patient did receive Dilaudid, Zofran, and Phenergan in the emergency room as well as a liter bolus of IV fluids. Upon arrival to the medical floor patient was comfortable and denied nausea and pain. Thus NG tube was held with trial of ice chips. <Amy Fraire - 01/30/19 17:07> [facility] History Medical History: Reports:: Cancer Denies:: Diabetes Mellitus Type 1, Diabetes Mellitus Type 2, Internal Pacemaker, Lung Disease, MRSA, Seizures <Amy Fraire 01/30/19 15:43> *Have you ever received a pneumonia vaccine?: No <Amy Fraire 01/30/19 15:43> *Have you received a flu vaccine this season?: No <FraireAmy 01/30/19 15:43> Other Medical History: Reports: Anemia. Denies: Blood Transfusion Reaction <FraireAmy 01/30/19 15:43> Comment:: previous bowel obstruction requiring hospitalization at 1 month ago; polyneuropathy <FraireAmy olea 01/30/19 15:43> Laterality Cases: Right: ACL Repair <Amy Fraire 01/30/19 15:43> Other Surgeries: Yes: Cancer Surgery, Colonoscopy, Colon Resection, Colostomy (reversed), Diagnostic Lap, Splenectomy, Other (L5-S1 disc, Right ACL). No: Pacemaker <Amy Fraire 01/30/19 15:43> Amputation: No <Amy Fraire 01/30/19 15:43> Fractures: Yes (LEFT WRIST) <Amy Fraire 01/30/19 15:43> - *Social History Smoking Status: Current every day smoker <Amy Fraire 01/30/19 15:43> Tobacco Type: cigarettes <Amy Fraire 01/30/19 17:07> # Packs/Day (cigarettes): 1 (1/4 PPD) <Amy Fraire 01/30/19 17:07> #Yrs smoked (if former smoker): 10 <Amy Fraire 01/30/19 15:43> Alcohol Intake: current <Amy Fraire 01/30/19 15:43> Alcohol Intake Frequency:: holidays/special occasions only <Amy Fraire 01/30/19 15:43> Substance Use Type: denies use <Amy Farire 01/30/19 15:43> *Occupational Status:: unemployed <Amy Fraire 01/30/19 15:43> Housing: house <Amy Fraire 01/30/19 15:43> Household Members: family <Amy Fraire 01/30/19 15:43> *Travel in the last 8 weeks: None <Amy Fraire 01/30/19 15:43> - Psychiatric History Expresses thoughts of harming self/others: None <Amy Fraire 01/30/19 15:43> Suicide Plan Description: No Plan <[facility] 01/30/[facility] 15:43> Family Hx:: Cancer, Hypertension <[facility] 01/30/19 15:43> Review of Systems - Constitutional Reports chills, Reports weight loss <[facility] 01/30/19 17:07> - ENT Denies dizziness, Denies ear pain, Denies sore throat <[facility] 01/30/19 17:07> - *Cardiovascular Denies chest pain, Denies shortness of breath, Denies irregular heart rhythm, Denies leg swelling <[facility] 01/30/19 17:07> - *Respiratory Denies chest congestion, Denies cough, Denies shortness of breath <[facility] 01/30/19 17:07> - *Gastrointestinal Reports abdominal pain, Reports constipation, Reports cramping, Reports nausea, Reports vomiting, Denies vomiting blood, Denies bright, red blood in stools <[facility] 01/30/19 17:07> - *Genitourinary Denies difficulty urinating <[facility] 01/30/19 17:07> - *Musculoskeletal Reports tingling, Denies abnormal walking <[facility] 01/30/19 17:07> Comments: Poly-neuropathy for which Dr. 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 <[facility] 01/30/19 17:07> Meds Home Medications Medication Instructions Recorded Confirmed Type gabapentin 300 mg capsule 300 mg PO TID 11/17/18 01/30/19 History Duloxetine HCl [Cymbalta] 30 mg PO DAILY 01/30/19 01/30/19 History Mecobal/Levomefolat Ca/B6 Phos 1 tab PO DAILY 01/30/19 01/30/19 History [Foltanx] <Santy Steen - 01/30/19 17:19> Allergies Allergy/AdvReac Type Severity Reaction Status Date / Time morphine Allergy Verified 01/30/19 15:38 acetaminophen [From Tylenol] AdvReac Mild Nausea Verified 12/19/18 09:31 <Santy Steen - 01/30/19 17:19> Exam Vital signs and Labs for Last 24 Hours: Temp Pulse Resp BP Pulse Ox 98.9 F 51 L 18 107/59 L 96 01/30/19 16:17 01/30/19 16:17 01/30/19 16:17 01/30/19 16:17 01/30/19 16:17 Laboratory Results - last 24 hr 01/30/19 07:30: WBC 18.3 H, RBC 4.84, Hgb 15.3, Hct 47.8, MCV 98.7 H, MCH 31.6 H , MCHC 32.0, RDW 15.3, Plt Count 553 H, MPV 7.9, Neut % (Auto) 88.5 H, Lymph % (Auto) 4.4 L, [place] % (Auto) 5.5, Eos % (Auto) 1.3, Baso % (Auto) 0.3, Neut # (Auto) 16.2 H, Lymph # (Auto) 0.8, [place] # (Auto) 1.0, Eos # (Auto) 0.2, Baso # (Auto) 0.1, Total Counted 100, Neutrophils % (Manual) 78 H, Band Neutrophils % 13.0 H, Lymphocytes % (Manual) 4 L, Monocytes % (Manual) 4, Myelocytes % 1, Platelet Estimate Slight increase, Macrocytosis 1+ 01/30/19 07:30: Sodium 139, Potassium 3.6, Chloride 97 L, Carbon Dioxide 29, Anion Gap 16.6 H, BUN 18, Creatinine 1.05, Estimated Creat Clear 84, Estimated GFR 74, Est GFR ( Amer) 90, Glucose 153 H, Calcium 9.4, Total Bilirubin 0.7, AST 20, ALT 23, Alkaline Phosphatase 133 H, Total Protein 8.5 H, Albumin 4.0, Globulin 4.5 H, Albumin/Globulin Ratio 0.9 L, Amylase 20 L, Lipase 95 01/30/19 09:40: Urine Color Yellow, Urine Appearance Sl cloudy, Urine pH 5.5, Ur Specific [place] 1.010, Urine Protein 1+, Urine Glucose (UA) Negative, Urine Ketones Negative, Urine Blood Negative, Urine Nitrate Negative, Urine Bilirubin Negative, Urine Urobilinogen 0.2, Ur Leukocyte Esterase Negative, Urine WBC Occasional, Ur Squamous Epith Cells Occasional, Urine Bacteria 1+ <Santy Steen - 01/30/19 17:19> Temp Pulse Resp BP Pulse Ox 98.4 F 68 16 92/61 L 99 01/30/19 07:30 01/30/19 13:55 01/30/19 10:29 01/30/19 13:55 01/30/19 13:55 Laboratory Results - last 24 hr 01/30/19 07:30: WBC 18.3 H, RBC 4.84, Hgb 15.3, Hct 47.8, MCV 98.7 H, MCH 31.6 H , MCHC 32.0, RDW 15.3, Plt Count 553 H, MPV 7.9, Neut % (Auto) 88.5 H, Lymph % (Auto) 4.4 L, [place] % (Auto) 5.5, Eos % (Auto) 1.3, Baso % (Auto) 0.3, Neut # (Auto) 16.2 H, Lymph # (Auto) 0.8, [place] # (Auto) 1.0, Eos # (Auto) 0.2, Baso # (Auto) 0.1, Total Counted 100, Neutrophils % (Manual) 78 H, Band Neutrophils % 13.0 H, Lymphocytes % (Manual) 4 L, Monocytes % (Manual) 4, Myelocytes % 1, Platelet Estimate Slight increase, Macrocytosis 1+ 01/30/19 07:30: Sodium 139, Potassium 3.6, Chloride 97 L, Carbon Dioxide 29, A nion Gap 16.6 H, BUN 18, Creatinine 1.05, Estimated Creat Clear 84, Estimated GFR 74, Est GFR ( Amer) 90, Glucose 153 H, Calcium 9.4, Total Bilirubin 0.7, AST 20, ALT 23, Alkaline Phosphatase 133 H, Total Protein 8.5 H, Albumin 4.0, Globulin 4.5 H, Albumin/Globulin Ratio 0.9 L, Amylase 20 L, Lipase 95 01/30/19 09:40: Urine Color Yellow, Urine Appearance Sl cloudy, Urine pH 5.5, Ur Specific [place] 1.010, Urine Protein 1+, Urine Glucose (UA) Negative, Urine Ketones Negative, Urine Blood Negative, Urine Nitrate Negative, Urine Bilirubin Negative, Urine Urobilinogen 0.2, Ur Leukocyte Esterase Negative, Urine WBC Occasional, Ur Squamous Epith Cells Occasional, Urine Bacteria 1+ <Amy Fraire - 01/30/19 15:43> I & O for Last 24 hours: Intake & Output 01/27/19 01/28/19 01/29/19 01/30/19 23:59 23:59 23:59 23:59 Weight 155 lb 8 oz <Santy Steen - 01/30/19 17:19> Intake & Output 01/28/19 01/29/19 01/30/19 01/31/19 11:59 11:59 11:59 11:59 Weight 160 lb <Amy Fraire - 01/30/19 15:43> Radiology Reports for the Last 24 Hours: 01/30/19 CT of abdomen/pelvis IMPRESSION: 1. Dilated loops of small bowel throughout with a segment of thickened small bowel distally which could be causing partial small bowel obstruction. Consider follow-up exam with both IV and oral contrast for better delineation of the bowel loops. Enteritis with ileus is also a consideration. 01/30/[address] of abdomen/pelvis IMPRESSION: 1. There is some mild persistent thickening of the distal aspect of the ilium proximal to the terminal ileum consistent with enteritis. The small bowel is dilated proximal to this region but has improved from the original study report today 4 hours earlier. This may be related to improvement in partial small bowel obstruction or improvement in ileus. A complete or high-grade bowel obstruction is not present. <Fraire,Amy - 01/30/19 15:43> - Constitutional no acute distress <JunoAmy - 01/30/19 17:07> Comments: Appears comfortable at present <JunoAmy 01/30/19 17:07> - *Routine HEENT Exam Head: Present: normocephalic, atraumatic <JunoAmy - 01/30/19 17:07> Eye: Present: PERRL <JunoAmy - 01/30/19 17:07> ENT: Present: mucous membranes moist, oropharynx clear <Amy Fraire 01/30/19 17:07> - *Routine Neck Exam Present: supple. Absent: carotid bruit, lymphadenopathy, thyromegaly <Kizzy Frairehy - 01/30/19 17:07> - *Routine Respiratory Exam Present: CTA bilaterally (Anteriorly and posteriorly) <JunoAmy - 01/30/19 17:07> - *Routine Cardiovascular Exam Present: RRR <[facility] 01/30/[facility] 17:07> - *Routine Abdominal Exam Present: soft, normoactive bowel sounds, tenderness (In lower quads), surgical scars. Absent: guarding <[facility] 01/30/19 17:07> - *Routine Extremities Exam Absent: edema, calf tenderness <[facility] 01/30/19 17:07> - *Routine Neurological Exam Present: alert, oriented X3 <[facility] 01/30/19 17:07> Assessment and Plan (1) Small bowel obstruction, partial Current visit: Yes Status: Acute Category: Medical Code(s): K56.600 - Partial intestinal obstruction, unspecified as to cause (2) Leukocytosis Current visit: Yes Status: Acute Category: Medical Code(s): D72.829 - Elevated white blood cell count, unspecified (3) History of rectal cancer Current visit: Yes Status: Acute Category: Medical Code(s): Z85.048 - Personal history of other malignant neoplasm of rectum, rectosigmoid junction, and anus (4) Polyneuropathy following chemotherapy Current visit: Yes Status: Acute Category: Medical Code(s): G62.0 - Drug- induced polyneuropathy; T45.1X5A - Adverse effect of antineoplastic and immunosuppressive drugs, initial encounter <Santy Steen - 01/30/19 17:19> (1) Small bowel obstruction, partial Current visit: Yes Status: Acute Category: Medical Code(s): K56.600 - Partial intestinal obstruction, unspecified as to cause (2) Leukocytosis Current visit: Yes Status: Acute Category: Medical Code(s): D72.829 - Elevated white blood cell count, unspecified (3) History of rectal cancer Current visit: Yes Status: Acute Category: Medical Code(s): Z85.048 - Personal history of other malignant neoplasm of rectum, rectosigmoid junction, and anus (4) Polyneuropathy following chemotherapy Current visit: Yes Status: Acute Category: Medical Code(s): G62.0 - Drug- induced polyneuropathy; T45.1X5A - Adverse effect of antineoplastic and immunosuppressive drugs, initial encounter <Amy Fraire - 01/30/19 16:47> - Assessment and plan all Dx Assessment and Plan for all problems:: Saw patient, agree with above note. <Santy Steen - 01/30/19 17:19> GI rest. IV fluids. Nausea and pain management. Will repeat CBC in the a.m. <Amy Fraire - 01/30/19 17:07>
--- NOTE | 2019-01-30 15:47 | Pharmacy Consult Notes ---
[facility] Pharmacy VTE Monitoring - Patient Demographics Admission date: 01/30/19 Report Date: 01/30/19 Time: 15:47 Allergies/Adverse Reactions: Patient Allergies morphine Allergy (Verified 01/30/19 15:38) acetaminophen [From Tylenol] Adverse Reaction (Mild, Verified 12/19/18 09:31) Nausea Height: 1.91 m Weight: 72.575 kg Patient Problems: Current Active Problems (Updated 01/30/19 @ 15:43 by Amy Fraire APRN) Small bowel obstruction, partial (Acute) Polyneuropathy following chemotherapy (Acute) History of rectal cancer (Acute) - VTE Risk Labs: VTE Related Lab Results Hgb 15.3 g/dL (14.1-18.0) 01/30/19 07:30 Hct 47.8 % (42.0-52.0) 01/30/19 07:30 Plt Count 553 K/mm3 (142-424) H 01/30/19 07:30 BUN 18 mg/dL (7-18) 01/30/19 07:30 Creatinine 1.05 mg/dL (0.70-1.30) 01/30/19 07:30 Estimated Creat Clear 84 mL/min (50-200) 01/30/19 07:30 - Prophylaxis VTE Prophylaxis Ordered?: Yes Types of VTE Prophylaxis: TEDS Knee High Location of Applied Device: Bilateral Lower Extremeties - VTE Diagnosis Confirmed Treatment or plan recommended: Continue Current Treatment
[2019-01-31 06:24] LABS: Basophils % 0.2 % (0.1-2.0); Eosinophils % 0.3 % (0.1-12.0); Hematocrit 35.7 % (42.0-52.0); Lymphocytes # 1.2 K/mm3 (0.7-4.5); Lymphocytes % 9.1 % (10-50); Mean Corpuscular HGB Conc 31.4 g/dL (31.8-35.4); Mean Corpuscular Volume 99.1 fl (80-94); Mean Platelet Volume 8.2 fl (7.4-10.4); Monocytes # 0.9 K/mm3 (0.1-1.0); Neutrophils # 10.6 K/mm3 (1.8-7.8); Neutrophils % 83.5 % (37.0-80.0); Platelet Count 433 K/mm3 (142-424); Red Cell Distribution Width 15.2 % (11.5-17.5); White Blood Count 12.7 K/mm3 (4.8-10.8)
[2019-01-31 06:36] LABS: Albumin Level 2.8 gm/dL (3.4-5.0); Albumin/Globulin Ratio 0.8 (1.1-1.8); Anion Gap 10.9 mEq/L (5-15); Bilirubin,Total 0.5 mg/dL (0.2-1.0); Calcium 8.6 mg/dL (8.5-10.1); Globulin 3.4 gm/dl (1.3-3.2); Total Protein,Serum 6.2 gm/dL (6.4-8.2)
[2019-01-31 07:40] LABS: Hemoglobin 11.2 g/dL (14.1-18.0)
--- NOTE | 2019-01-31 07:59 | Progress Note ---
<Amy Fraire - Last Filed: 01/31/19 07:55> Internal Medicine - PN: Subj *Date: 01/31/19 *Time: 07:56 Interval history: Patient feels better this morning. He states the abdominal pain is minimal. He did require 1 dose of pain medicine last p.m. He said no further nausea or vomiting and has not required Zofran or Phenergan. He has had popsicles and ice chips p.o. Bowels did move and were loose. He is voiding. Ambulates to the bathroom without difficulty. He denies chest pain and shortness of breath. Exam Vital signs and Labs for Last 24 Hours: Temp Pulse Resp BP Pulse Ox 98.4 F 60 17 113/75 98 01/31/19 07:45 01/31/19 07:45 01/31/19 07:45 01/31/19 07:45 01/31/19 07:45 Laboratory Results - last 24 hr 01/30/19 07:30: Total Counted 100, Neutrophils % (Manual) 78 H, Band Neutrophils % 13.0 H, Lymphocytes % (Manual) 4 L, Monocytes % (Manual) 4, Myelocytes % 1, Platelet Estimate Slight increase, Macrocytosis 1+ 01/30/19 07:30: Sodium 139, Potassium 3.6, Chloride 97 L, Carbon Dioxide 29, Anion Gap 16.6 H, BUN 18, Creatinine 1.05, Estimated Creat Clear 84, Estimated GFR 74, Est GFR ( Amer) 90, Glucose 153 H, Calcium 9.4, Total Bilirubin 0.7, AST 20, ALT 23, Alkaline Phosphatase 133 H, Total Protein 8.5 H, Albumin 4.0, Globulin 4.5 H, Albumin/Globulin Ratio 0.9 L, Amylase 20 L, Lipase 95 01/30/19 09:40: Urine Color Yellow, Urine Appearance Sl cloudy, Urine pH 5.5, Ur Specific [place] 1.010, Urine Protein 1+, Urine Glucose (UA) Negative, Urine Ketones Negative, Urine Blood Negative, Urine Nitrate Negative, Urine Bilirubin Negative, Urine Urobilinogen 0.2, Ur Leukocyte Esterase Negative, Urine WBC Occasional, Ur Squamous Epith Cells Occasional, Urine Bacteria 1+ 01/31/19 06:08: WBC 12.7 H D, RBC 3.60 L D, Hgb 11.2 L D, Hct 35.7 L, MCV 99.1 H , MCH 31.1, MCHC 31.4 L, RDW 15.2, Plt Count 433 H, MPV 8.2, Neut % (Auto) 83.5 H, Lymph % (Auto) 9.1 L, [place] % (Auto) 7.0, Eos % (Auto) 0.3, Baso % (Auto) 0.2, Neut # (Auto) 10.6 H, Lymph # (Auto) 1.2, [place] # (Auto) 0.9, Eos # (Auto) 0.0, Baso # (Auto) 0.0 01/31/19 06:08: Sodium 141, Potassium 3.9, Chloride 104, Carbon Dioxide 30, Anion Gap 10.9, BUN 31 H D, Creatinine 0.85, Estimated Creat Clear 102, Estimated GFR 95, Est GFR ( Amer) 115 D, Glucose 107 H D, Calcium 8.6, Total Bilirubin 0.5, AST 11 L D, ALT 19, Alkaline Phosphatase 93, Total Protein 6.2 L D, Albumin 2.8 L D, Globulin 3.4 H, Albumin/Globulin Ratio 0.8 L I & O for Last 24 hours: Intake & Output 01/28/19 01/29/19 01/30/19 01/31/19 11:59 11:59 11:59 11:59 Intake Total 50 / 50 Balance 50 / 50 Weight 160 lb 156 lb 4 oz - Constitutional no acute distress Comments: Awake and alert and appears comfortable - *Routine Respiratory Exam Present: CTA bilaterally (Anteriorly and posteriorly) - *Routine Cardiovascular Exam Present: RRR - *Routine Abdominal Exam Present: soft, normoactive bowel sounds, tenderness (Mild lower quadrant tenderness), surgical scars. Absent: distended, guarding - *Routine Extremities Exam Absent: edema, calf tenderness - *Routine Neurological Exam Present: alert, oriented X3 Assessment and Plan (1) Small bowel obstruction, partial Current visit: Yes Status: Acute Category: Medical Code(s): K56.600 - Partial intestinal obstruction, unspecified as to cause (2) Leukocytosis Current visit: Yes Status: Acute Category: Medical Code(s): D72.829 - Elevated white blood cell count, unspecified (3) History of rectal cancer Current visit: Yes Status: Acute Category: Medical Code(s): Z85.048 - Personal history of other malignant neoplasm of rectum, rectosigmoid junction, and anus (4) Polyneuropathy following chemotherapy Current visit: Yes Status: Acute Category: Medical Code(s): G62.0 - Drug- induced polyneuropathy; T45.1X5A - Adverse effect of antineoplastic and immunosuppressive drugs, initial encounter - Assessment and plan all Dx Assessment and Plan for all problems:: Bed not available at as yet. We will continue with IV fluids. Is not interested in clear liquids and prefers popsicles only. Consider diet advancement. <Santy Steen - Last Filed: 01/31/19 08:28> Internal Medicine - PN: Subj *Date: 01/31/19 *Time: 08:27 Exam Vital signs and Labs for Last 24 Hours: Temp Pulse Resp BP Pulse Ox 98.4 F 60 17 113/75 98 01/31/19 07:45 01/31/19 07:45 01/31/19 07:45 01/31/19 07:45 01/31/19 07:45 Laboratory Results - last 24 hr 01/30/19 07:30: Total Counted 100, Neutrophils % (Manual) 78 H, Band Neutrophils % 13.0 H, Lymphocytes % (Manual) 4 L, Monocytes % (Manual) 4, Myelocytes % 1, Platelet Estimate Slight increase, Macrocytosis 1+ 01/30/19 09:40: Urine Color Yellow, Urine Appearance Sl cloudy, Urine pH 5.5, Ur Specific [place] 1.010, Urine Protein 1+, Urine Glucose (UA) Negative, Urine Ketones Negative, Urine Blood Negative, Urine Nitrate Negative, Urine Bilirubin Negative, Urine Urobilinogen 0.2, Ur Leukocyte Esterase Negative, Urine WBC Occasional, Ur Squamous Epith Cells Occasional, Urine Bacteria 1+ 01/31/19 06:08: WBC 12.7 H D, RBC 3.60 L D, Hgb 11.2 L D, Hct 35.7 L, MCV 99.1 H , MCH 31.1, MCHC 31.4 L, RDW 15.2, Plt Count 433 H, MPV 8.2, Neut % (Auto) 83.5 H, Lymph % (Auto) 9.1 L, [place] % (Auto) 7.0, Eos % (Auto) 0.3, Baso % (Auto) 0.2, Neut # (Auto) 10.6 H, Lymph # (Auto) 1.2, [place] # (Auto) 0.9, Eos # (Auto) 0.0, Baso # (Auto) 0.0 01/31/19 06:08: Sodium 141, Potassium 3.9, Chloride 104, Carbon Dioxide 30, Anion Gap 10.9, BUN 31 H D, Creatinine 0.85, Estimated Creat Clear 102, Estimated GFR 95, Est GFR ( Amer) 115 D, Glucose 107 H D, Calcium 8.6, Total Bilirubin 0.5, AST 11 L D, ALT 19, Alkaline Phosphatase 93, Total Protein 6.2 L D, Albumin 2.8 L D, Globulin 3.4 H, Albumin/Globulin Ratio 0.8 L I & O for Last 24 hours: Intake & Output 01/28/19 01/29/19 01/30/19 01/31/19 23:59 23:59 23:59 23:59 Intake Total 50 / 50 Balance 50 / 50 Weight 155 lb 8 oz 156 lb 4 oz Assessment and Plan (1) Small bowel obstruction, partial Current visit: Yes Status: Acute Category: Medical Code(s): K56.600 - Partial intestinal obstruction, unspecified as to cause (2) Leukocytosis Current visit: Yes Status: Acute Category: Medical Code(s): D72.829 - El evated white blood cell count, unspecified (3) History of rectal cancer Current visit: Yes Status: Acute Category: Medical Code(s): Z85.048 - Personal history of other malignant neoplasm of rectum, rectosigmoid junction, and anus (4) Polyneuropathy following chemotherapy Current visit: Yes Status: Acute Category: Medical Code(s): G62.0 - Drug- induced polyneuropathy; T45.1X5A - Adverse effect of antineoplastic and immunosuppressive drugs, initial encounter - Assessment and plan all Dx Assessment and Plan for all problems:: Saw patient, agree with above note. Pt has improved, check flat and upright abd xrays today. Doubt pt will need to go to [facility] today.
[2019-01-31 15:35] VITALS: BP 122/83
--- NOTE | 2019-02-01 13:41 | Discharge Summary ---
General - General Admission date:: 01/30/19 Discharge date: 01/31/19 HPI HPI: Mr. Hallman is a 53-year-old male patient who presented to the emergency room after experiencing severe abdominal pain associated with nausea and vomiting which started last p.m. 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 He has completed his chemotherapy this year and had a colostomy reversal in September of this year. He is followed by Dr. Alba. He gives a history of having a colon obstruction last month at which time he did present to [facility] emergency room and was transferred to . He was treated with GI rest and remained in the hospital for 3 days at that time. With this presentation the plan was to transfer him back to [facility] for care but the bed has not become available. Thus he was admitted to [facility] for treatment. In the emergency room he had a CT scan of the abdomen/pelvis which showed a partial small bowel obstruction and to consider enteritis with ileus. Follow-up scan 4 hours later revealed some mild persistent thickening of the distal aspect of the ilium proximal to the terminal ileum consistent with enteritis. The small bowel was noted to be dilated proximal to this region but improved from the original study reported today 4 hours earlier. This was thought possibly related to improvement in partial small bowel obstruction or improvement in ileus. A complete or high-grade bowel obstruction was not present. Patient did receive Dilaudid, Zofran, and Phenergan in the emergency room as well as a liter bolus of IV fluids. Upon arrival to the medical floor patient was comfortable and denied nausea and pain. Thus NG tube was held with trial of ice chips. Hospital Course Hospital Course: The patient was started on GI rest, IV fluids, nausea and pain management. By the day after admission, he did feel better. His abdominal pain was minimal. He had no further nausea or vomiting and did not require Zofran or Phenergan. He only required 1 dose of pain medication. He had eaten popsicles and ice chips and his bowels had moved and were loose. He was able to ambulate without difficulty. A flat and upright abdominal x-ray was ordered. His diet was advanced to full liquids and a stool was obtained for a diarrhea panel and occult blood. The patient's pain did resolve and he tolerated a soft diet. His x-ray showed improved bowel gas pattern. His stool was positive for blood but his diarrhea panel was negative. He was stable to be discharged home and will follow up with a surgeon in 2 weeks at . Objective Vital signs: Temp Pulse Resp BP Pulse Ox 98.6 F 55 L 15 122/83 99 01/31/19 15:34 01/31/19 15:34 01/31/19 15:34 01/31/19 15:34 01/31/19 15:34 Narrative: - Constitutional no acute distress Comments: Appears comfortable at present - *Routine HEENT Exam Head: Present: normocephalic, atraumatic Eye: Present: PERRL ENT: Present: mucous membranes moist, oropharynx clear - *Routine Neck Exam Present: supple. Absent: carotid bruit, lymphadenopathy, thyromegaly - *Routine Respiratory Exam Present: CTA bilaterally (Anteriorly and posteriorly) - *Routine Cardiovascular Exam Present: RRR - *Routine Abdominal Exam Present: soft, normoactive bowel sounds, tenderness (In lower quads), surgical scars. Absent: guarding - *Routine Extremities Exam Absent: edema, calf tenderness - *Routine Neurological Exam Present: alert, oriented X3 Results Labs on day of discharge: Labs from last 24 hours 01/31/19 01/31/19 14:15 14:15 Stool Occult Blood Positive A Stl Aeromonas (PCR) Not detected Stl C. cayetanensis PCR Not detected Stool Rotavirus (PCR) Not detected Stl Adenov F 40/41 PCR Not detected Stool Astrovirus (PCR) Not detected Stool Campylobacter PCR Not detected Stl C.difficile Tox PCR Not detected Stool Cryptosporidium PCR Not detected Stl E.coli Shiga Tox PCR Not detected Stool E coli O157 PCR Not detected Stl Enterotoxigenic E PCR Not detected Stool EPEC (PCR) Not detected Stool EAEC (PCR) Not detected Stl E. histolytica PCR Not detected Stool Giardia Lamblia PCR Not detected Stool Salmonella PCR Not detected Stool Sapovirus (PCR) Not detected Stl P. shigelloides PCR Not detected Stl Shigella/EIEC PCR Not detected St Y.enterocolitica PCR Not detected Stool Vibrio (PCR) Not detected Stl Vibrio cholerae PCR Not detected Stl Norovirus GI/GII PCR Not detected DS: Diagnosis - Discharge Diagnosis (1) Small bowel obstruction, partial Status: Acute (2) Leukocytosis Status: Acute (3) History of rectal cancer Status: Acute (4) Polyneuropathy following chemotherapy Status: Acute Discharge Plan - Patient Discharge Instructions ACTIVITY: Continue current activity DIET: continue same diet Patient Instructions: DI for Small Bowel Obstruction - Follow up Plan Follow up with: Mayo Colindres MD [Staff Physician] - 2 weeks Disposition: Home, Self-Fdc Medications: Home Medications Medication Instructions Recorded Confirmed Type gabapentin 300 mg capsule 300 mg PO TID 11/17/18 01/30/19 History Duloxetine HCl [Cymbalta] 30 mg PO DAILY 01/30/19 01/30/19 History Mecobal/Levomefolat Ca/B6 Phos 1 tab PO DAILY 01/30/19 01/30/19 History [Foltanx Tablet] Prescriptions/Medication Reconciliation: Continued gabapentin 300 mg capsule 300 mg PO TID Duloxetine HCl [Cymbalta] 30 mg PO DAILY Mecobal/Levomefolat Ca/B6 Phos [Foltanx Tablet] 1 tab PO DAILY
== END 2019-01-31 17:15 | disposition home or self-care (01) | DRG 390 ==
LOC: ER 07:15 → 2ND 14:48
PROVIDERS: ADMIT Family Medicine; ATTEND Family Medicine
CPT/HCPCS: 36415; 74021; 74022; 74176; 74177; 80053; 81001; 82150; 82272; 83690; 85007; 85025; 87507; 96365; 96375; 96376; 99284; G0328; J2405; Q9967

== ENCOUNTER → 2019-02-09 12:33 | Outpatient (CLI) | payer OTHER, SELFPAY ==
--- NOTE | 2019-02-09 12:45 | CT_ITS ---
CT chest w con HISTORY: Follow-up pulmonary nodule, colon cancer ITS.REASON: COLON CANCER ORDERING PHYSICIAN: Anastasia Alba MD PATIENT AGE: 53 years COMPARISON: 11/14/2018 Technique: Contrast Used:75ml Optiray 350 Axial images were obtained. Sagittal, and coronal reformatted images are also generated and reviewed. All CT scans at the facility use one or more dose reduction, viz: automated exposure control, ma/kV adjustment per patient size (including targeted exams where dose is matched to indication, i.e. head), or iterative reconstruction technique. FINDINGS: No mediastinal or hilar mass or adenopathy is evident. Spiculated nodule is once again noted in the right upper lobe anterior to the major fissure measuring approximately 10 x 7 mm. The nodule is not significantly changed but does have a suspicious appearance. Continued follow-up is suggested. There are fibrotic changes in the right middle lobe. No new nodules are evident. No effusions or infiltrates. No acute bony anomalies. Upper abdominal images show no acute finding. There are fluid-filled loops of small and large bowel which are nonspecific. IMPRESSION: Overall stable appearance of the spiculated 10 x 7 mm right upper lobe nodule which could be due to an area of fibrosis or neoplasm. Continued follow-up suggested. PET/CT may be of further value clinically desired. If this is not performed then, would suggest a [address] follow-up.
== END ==
PROVIDERS: Visit Provider Internal Medicine Medical Oncology
DX: C18.9 Malignant neoplasm of colon, unspecified (principal)
CPT/HCPCS: 71260; Q9967

== ENCOUNTER 2019-02-23 08:30 | Outpatient (RCR) | payer OTHER, SELFPAY | END 2019-02-23 08:40 | disposition home or self-care (01) | LOC: OT 08:30 | PROVIDERS: Visit Provider Specialist | DX: G56.03 Carpal tunnel syndrome, bilateral upper limbs (principal); G62.0 Drug-induced polyneuropathy | CPT/HCPCS: 97763 ==

== ENCOUNTER 2019-02-27 08:30 | Outpatient (RCR) | payer OTHER, SELFPAY ==
--- NOTE | 2019-02-17 11:28 | HMH.OTOPEV ---
OT Inpatient Evaluation Rehab OT Outpatient Eval Start: 02/17/19 11:01 Freq: Status: Active Protocol: Document 02/17/19 11:01 RMARSHALL (Rec: 02/17/19 11:25 [facility] [id number]) Electronically Signed By José Miguel Hilario OT 02/17/19 11:01 Outpatient Therapy Subjective History Subjective History Pt is a 53 year old male who reports to therapy for initial evaluation to bilateral wrists. Pt was recently dx with carpal tunnel syndrome bilaterally. Pt was diagnosed with colo-rectal cancer in November 2017 and fininshed his last Chemo tx in August, . Pt's symptoms of CTS started shortly after finishing his last chemo. 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 Pt's AROM is minimally impaired. Pt's main symptoms are numbness, tingling, and pain. Pt will continue to be seen twice a week in order to address all deficits. 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
== END 2019-02-27 08:35 | disposition home or self-care (01) ==
LOC: OT 08:30
PROVIDERS: Visit Provider Specialist
DX: G56.03 Carpal tunnel syndrome, bilateral upper limbs (principal); G62.9 Polyneuropathy, unspecified
CPT/HCPCS: 97110; 97166

== ENCOUNTER → 2019-05-24 09:33 | Outpatient (CLI) | payer OTHER, SELFPAY ==
--- NOTE | 2019-05-24 09:35 | XR_ITS ---
PROCEDURE: XR WRIST RT MIN 3V CLINICAL INDICATION: right wrist pain COMPARISON: No exams were available for comparison FINDINGS: No fracture, dislocation, lytic change, or blastic change evident. No significant degenerative change IMPRESSION: No acute findings. Dictated by: Horace Ramirez MD 05/24/2019 11:56 Electronically signed by Horace Ramirez MD in [place] 05/24/2019 11:56
--- NOTE | 2019-05-24 09:35 | XR_ITS ---
PROCEDURE: XR WRIST LT MIN 3V CLINICAL INDICATION: left wrist pain COMPARISON: No exams were available for comparison FINDINGS: There are osteoarthritic changes of the radioulnar joint with mild bony hypertrophy at the radial component of the radial ulnar joint. Hypertrophic changes are present involving the ulnar styloid process. There are mild osteoarthritic changes of the radiocarpal joint. No fracture or dislocation. No lytic or blastic change. IMPRESSION: Mild osteoarthritic change Dictated by: Horace Ramirez MD 05/24/2019 11:55 Electronically signed by Horace Ramirez MD in [place] 05/24/2019 11:55
== END ==
PROVIDERS: Visit Provider Orthopaedic Surgery
DX: M25.531 Pain in right wrist (principal); M25.532 Pain in left wrist
CPT/HCPCS: 73110

== ENCOUNTER → 2019-10-11 12:23 | Outpatient (CLI) | payer MEDICAID, SELFPAY ==
--- NOTE | 2019-10-11 12:28 | XR_ITS ---
PROCEDURE: XR SHOULDER RT MIN 2V CLINICAL INDICATION: right shoulder pain COMPARISON: No exams were available for comparison FINDINGS: Mild osteoarthritic changes are present at the glenohumeral joint. There is spurring along the inferior and distal aspect the acromion with subacromial stenosis. Humeral head is slightly high-riding. IMPRESSION: Osteoarthritic changes of the glenohumeral joint with spurring along the distal acromion inferiorly and mild superior location of the humeral head which may be seen with rotator cuff disease. Dictated by: Horace Ramirez MD 10/11/2019 15:00 Electronically signed by Horace Ramirez MD in [place] 10/11/2019 15:00
== END ==
PROVIDERS: Visit Provider Orthopaedic Surgery
DX: M25.511 Pain in right shoulder (principal)
CPT/HCPCS: 73030

== ENCOUNTER → 2019-10-24 07:48 | Outpatient (CLI) | payer MEDICAID, SELFPAY ==
--- NOTE | 2019-10-24 07:48 | MR_ITS ---
PROCEDURE: MR SHOULDER RT WO CON CLINICAL INDICATION: evaluate for rotator cuff tear Right shoulder pain with limited range of motion COMPARISON: No exams were available for comparison TECHNIQUE: Routine multiplanar multi echo sequences are performed without gadolinium enhancement. FINDINGS: Hypertrophic changes are present at the acromioclavicular joint. There is subacromial stenosis with downsloping of the acromion laterally with a subacromial space measuring 3 mm. There is complete tear of the infraspinatus tendon with retraction of the musculotendinous fibers. There is also tear of the supraspinatus tendon without tendinous retraction. There may be a few fibers intact. This however is questionable. Osteoarthritic changes are present involving the glenohumeral joint with superior migration of the humeral head. No obvious labral tear. The bicipital tendon is in place. Small amount fluid is present in the bicipital tendon sheath. Small amount fluid is present in the sub acromial region and a sub coracoid region. The subscapularis tendon appears intact although there is thickening of the distal aspect of the subscapularis tendon. Teres minor tendon appears intact IMPRESSION: 1. Complete tear of the infraspinatus tendon with retraction of the musculotendinous fibers 2. Near complete or possible complete tear of the supraspinatus tendon as well. There may be a few fibers intact. 3. Subacromial stenosis with fluid in the subcoracoid and subacromial region consistent with bursitis with osteoarthritic changes of the glenohumeral joint and acromioclavicular joint Dictated by: Horace Ramirez MD 10/25/2019 10:14 Electronically signed by Horace Ramirez MD in [place] 10/25/2019 10:14
== END ==
PROVIDERS: PCP Orthopaedic Surgery; Visit Provider Orthopaedic Surgery
DX: M25.511 Pain in right shoulder (principal); G89.29 Other chronic pain
CPT/HCPCS: 73221

== ENCOUNTER → 2020-02-26 09:08 | Outpatient (CLI) | payer MEDICAID, SELFPAY ==
[2020-02-26 10:51] LABS: Chloride 103 mmol/L (98-107); Potassium 4.3 mmoL/L (3.5-5.1); Sodium 137 mmol/L (136-145)
[2020-02-26 10:54] LABS: Alanine Aminotransferase 11 U/L (12-78); Albumin Level 3.5 g/dl (3.5-5.0); Albumin/Globulin Ratio 1.3 (1.1-1.8); Alkaline Phosphatase 88 U/L (38-126); Anion Gap 10.3 mEq/L (5-15); Aspartate Amino Transferase 22 U/L (17-59); Bilirubin,Total 0.3 mg/dl (0.2-1.3); Blood Urea Nitrogen 13 mg/dl (9-20); Carbon Dioxide 28 mmol/L (22.0-30.0); Estimated Glomerular Filt Rate 88 ml/min (>60); GFR (African American) 107 ML/MIN (>60); Globulin 2.6 g/dL (1.3-3.2); Glucose 87 mg/dl (74-100); Total Protein,Serum 6.1 g/dl (6.3-8.2)
== END ==
PROVIDERS: Visit Provider Specialist
DX: G62.9 Polyneuropathy, unspecified (principal)
CPT/HCPCS: 36415; 80053

== ENCOUNTER 2020-06-20 10:17 | Emergency (ER) | payer MEDICAID, SELFPAY ==
[2020-06-20 10:28] VITALS: BP 122/79; PULSE 65; RESP 20; TEMP 36.7; O2SAT 99; BMI 21.9
--- NOTE | 2020-06-20 10:42 | HMH.EDUTC ---
[facility] [place] Disposition Clinical Impression: Cellulitis Qualifiers: Site of cellulitis: extremity Site of cellulitis of extremity: lower extremity Laterality: right Qualified Code(s): L03.115 - Cellulitis of right lower limb Disposition: Home, Self-Care Condition on Discharge: Good Instructions: Cellulitis, Cephalexin Additional Instructions: *Start antibiotic(s) immediately and be sure to take as ordered for the FULL length of time although you may be feeling better or start to see improvement in the next 24-48 hours *Monitor closely. Outlined redness so that you can monitor easier. Follow up immediately for new or worsening symptoms including but not limited to redness, swelling, streaking from site fever or chills. *Warm compress 15 minutes 3-4 times day *Never squeeze or pop these on your own. Seek immediate medical attention next time this occurs *Monitor Temp. Tylenol every 4 hours as needed and ibuprofen every 6 hours as needed (as long as your primary care doctor has told you that it is ok to take both. For fever, aches, pain. ER if no less that 101 despite Tylenol and ibuprofen Follow up with your family doctor/primary care physician in the next 48-72 hours if no improvement Straight to ER if any life threatening symptoms such as shortness of breath, chest pain ETC Prescriptions: cephALEXin [Keflex 500mg Cap] 500 mg PO QID 7 Days #28 cap Transmission Status: Received by [facility] Referrals: Suzette Holden APRN [Primary Care Provider] - As needed Time of Disposition: 10:59 Medical Decision Making - Ty Inquiry Pt receiving controlled substance: No Ty was queried for this patient: No Vital Signs: 06/20/20 10:28 06/20/20 11:08 Temperature 98.1 F 98.1 F Temperature Source Oral Oral Pulse Rate 65 Pulse Rate [Radial] 65 Respiratory Rate 20 20 Blood Pressure 122/79 Blood Pressure [Right Arm] 122/79 Blood Pressure Mean [Right Arm] 93 Blood Pressure Source Automatic Cuff Blood Pressure Source [Right Arm] Automatic Cuff Blood Pressure Position Sitting Blood Pressure Position [Right Arm] Sitting 02 Sat by Pulse Oximetry 99 Oxygen Delivery Method Room Air Room Air Medical Decision Narrative: Patient declined xray denies known injury except scratch reports thinks he has a skin infection recommended Venous Doppler to rule out DVT and patient decline that also States that he will start antibiotics and follow up with his PCP if any worsening Patient made aware of risk associated if DVT including but not limited too and still declined Venous doppler +pedal pulse felt [facility] [place] HPI - General Stated complaint: Possible infection on R leg Time Seen by Provider: 06/20/20 10:42 Mode of Arrival: Ambulatory Source of Information: Patient Limitations: No Limitations Description of Symptoms (Recalled from Triage Doc. by RN): possible right leg infection. redness and swelling from knee to ankle. no injury noted. HEENT Symptoms (Recalled from RN notes): No Resp Symptoms (Recalled from RN notes): No Skin Symptoms (Recalled from RN notes): Yes MS Symptoms (Recalled from RN notes): Yes Functional Status (Recalled from RN notes): wnl - History of Present Illness Provider Complaint: Patient states that he noticed a scratch on his right schin area States that since he has noticed some slight swelling and redness that goes from scratch down his leg Thinks he may have a skin infection Denies known injury denies falling and denies pain when walking States that he has swelling on and off in his right knee ever since he had a football injury when he was young and had surgery on his knee - Related Data Home Medications Medication Instructions Recorded Confirmed buprenorphine 8 mg-naloxone 2 mg 1 tab SUBLINGUAL tab 11/27/19 04/25/20 sublingual tablet Previous Rx's Medication Instructions Recorded duloxetine 60 mg capsule,delayed 60 mg PO DAILY 30 Days #30 cap 04/25/20 release pregabalin 50 mg cap
[2020-06-20 11:08] VITALS: BP 122/79; PULSE 65; RESP 20; TEMP 36.7; O2SAT 99
== END 2020-06-20 11:08 | disposition home or self-care (01) ==
PROVIDERS: Emergency Provider Nurse Practitioner; PCP Nurse Practitioner Family
DX: L03.115 Cellulitis of right lower limb (principal); F17.210 Nicotine dependence, cigarettes, uncomplicated; G62.0 Drug-induced polyneuropathy; T45.1X5A Adverse effect of antineoplastic and immunosuppressive drugs, initial encounter; Z85.048 Personal history of other malignant neoplasm of rectum, rectosigmoid junction, and anus
CPT/HCPCS: 99201

== ENCOUNTER → 2021-11-24 12:10 | Outpatient (CLI) | payer MEDICARE, SELFPAY ==
[2021-11-24 13:04] LABS: Basophils # 0.1 K/mm3 (0-0.2); Basophils % 1.4 % (0.1-2.0); Eosinophils # 0.1 K/mm3 (0.0-0.4); Eosinophils % 1.7 % (0.1-12.0); Hematocrit 35.2 % (42.0-52.0); Hemoglobin 11.5 g/dL (14.1-18.0); Lymphocytes # 1.3 K/mm3 (0.7-4.5); Mean Corpuscular HGB Conc 32.6 g/dL (31.8-35.4); Mean Corpuscular Hemoglobin 32.8 pg (27.0-31.2); Mean Corpuscular Volume 100.6 fl (80-94); Mean Platelet Volume 8.1 fl (7.4-10.4); Monocytes # 0.5 K/mm3 (0.1-1.0); Monocytes % 8.6 % (1.7-9.3); Neutrophils % 67.4 % (37.0-80.0); Platelet Count 346 K/mm3 (142-424); Red Cell Distribution Width 13.2 % (11.5-17.5)
[2021-11-24 13:45] LABS: Alanine Aminotransferase 15 U/L (12-78); Albumin Level 3.9 g/dl (3.5-5.0); Albumin/Globulin Ratio 1.5 (1.1-1.8); Alkaline Phosphatase 91 U/L (38-126); Anion Gap 8.8 mEq/L (5-15); Aspartate Amino Transferase 22 U/L (17-59); Bilirubin,Total 0.4 mg/dl (0.2-1.3); Blood Urea Nitrogen 18 mg/dl (9-20); Calcium 8.9 mg/dl (8.4-10.2); Carbon Dioxide 28 mmol/L (22.0-30.0); Chloride 103 mmol/L (98-107); Estimated Glomerular Filt Rate 53 ml/min (>60); GFR (African American) 64 ML/MIN (>60); Globulin 2.6 g/dL (1.3-3.2); Glucose 113 mg/dl (74-100); Potassium 4.8 mmoL/L (3.5-5.1); Sodium 135 mmol/L (136-145); Total Protein,Serum 6.5 g/dl (6.3-8.2)
[2021-11-24 17:50] LABS: Vitamin B12 240 pg/mL (239-931)
== END ==
PROVIDERS: Visit Provider Nurse Practitioner Family
DX: G62.0 Drug-induced polyneuropathy (principal); T45.1X5A Adverse effect of antineoplastic and immunosuppressive drugs, initial encounter; L03.90 Cellulitis, unspecified; D64.9 Anemia, unspecified
CPT/HCPCS: 36415; 80053; 82607; 82746; 85025

== ENCOUNTER → 2021-11-29 09:57 | Outpatient (CLI) | payer MEDICARE, MEDICAID, SELFPAY ==
[2021-11-30 08:35] LABS: Homocyst(e)ine 14.2 umol/L (0.0-14.5)
[2021-12-01 13:17] LABS: Antiparietal Cell Antibody 2.4 Units (0.0-20.0)
[2021-12-02 17:11] LABS: Intrinsic Factor Abs, Serum 1.1 AU/mL (0.0-1.1)
[2021-12-06 12:10] LABS: Methylmalonic Acid 294 nmol/L (0-378)
== END ==
PROVIDERS: Visit Provider Nurse Practitioner Family
DX: D64.9 Anemia, unspecified (principal); E53.8 Deficiency of other specified B group vitamins
CPT/HCPCS: 36415; 82131; 83090; 83516; 86340

== ENCOUNTER 2022-03-18 09:14 | Inpatient (IN) | payer MEDICARE, MEDICAID, SELFPAY ==
[2022-03-18] VITALS (14 sets, daily range): BP systolic 126–156; BP diastolic 79–95; PULSE 45–63; RESP 16–18; TEMP 36.6–37; O2SAT 97–99; BMI 18.8; BMI 17.5
--- NOTE | 2022-03-18 09:28 | PC.NURSE ---
FABIAN RAMÍREZ at
--- NOTE | 2022-03-18 09:32 | CT_ITS ---
FINAL REPORT CLINICAL HISTORY: Abd pain @ umbilical region w N/V/D x 4 days COMPARISON: January 30, 2019 FINDINGS: CT OF THE ABDOMEN AND PELVIS WITH CONTRAST Axial CT images of the abdomen and pelvis were obtained after the administration of iv contrast. This study was performed with techniques to keep radiation doses as low as reasonably achievable (ALARA). Individualized dose reduction techniques using automated exposure control or adjustment of mA and/or kV according to the patient's size were employed. Abdomen: The lung bases are clear. The heart is normal in size. The liver has an unremarkable appearance, without evidence of mass or biliary ductal dilatation. There is nonspecific gallbladder wall thickening that may be inflammatory. 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 There is mild adrenal gland enlargement that favors hyperplasia. The pancreas has an unremarkable appearance. There is new moderate left hydronephrosis and hydroureter to level of the pelvis. The aorta is normal in caliber. No mass is seen. Pelvis: There are multiple air and fluid-filled small bowel loops in the abdomen and pelvis of uncertain significance that may represent an ileus, enteritis or partial bowel obstruction. There is wall thickening of the small bowel loops in lower abdomen and upper pelvis with a adjacent soft tissue edema consistent with inflammatory change. This is somewhat worse since the prior examination. The appendix is not well-visualized. There is diffuse bladder wall thickening that is likely inflammatory. There is no evidence of mass or adenopathy. There are postoperative changes of the rectum. There is wall thickening of the distal sigmoid colon and rectum which appears worse. There is increased presacral soft tissue edema that may represent inflammatory change. IMPRESSION: Abnormal appearance of the small bowel with worsening inflammatory change and possible enteritis or partial small bowel obstruction. If indicated a repeat study with oral contrast or small bowel follow-through may be helpful. Worsening inflammatory changes of the sigmoid colon and rectum. Worsening inflammatory change of the urinary bladder. New moderate left hydronephrosis and hydroureter likely due to pelvic inflammatory change. Nonspecific gallbladder wall thickening. If indicated nuclear medicine hepatobiliary scan may be helpful. Reviewed, Interpreted and Dictated by Romario Maciel III, MD Transcribed by Temitope Ewing Authenticated and . [facility]
--- NOTE | 2022-03-18 09:39 | ECG_ITS ---
APPROVED REPORT Exam: Resting ECG HR:50 bpm ECG Measurements Heart Rate 50 AXES AR 137 P 69 QRSd 98 QRS -15 QT 464 T 46 QTc 437 Conclusion SINUS BRADYCARDIA POSSIBLE RIGHT VENTRICULAR CONDUCTION DELAY [RSR (QR) IN V1/V2] BORDERLINE ECG UNCONFIRMED REPORT Electronically signed by : Refugio Woodward MD 03/18/2022 17:36:30
[2022-03-18 09:45] LABS: Chloride 92 mmol/L (98-107); Potassium 3.9 mmoL/L (3.5-5.1); Sodium 133 mmol/L (136-145)
--- NOTE | 2022-03-18 09:45 | HMH.EDABDPAI ---
ED Disposition Clinical Impression: Partial small bowel obstruction Disposition: Admitted As Inpatient Condition on Discharge: Fair Instructions: DI for Acute Abdominal Pain Referrals: Provider,Referral, [Primary Care Provider] - - Critical Care Critical Care Time: No Attestation: On 03/18/22, the high probability of a clinically significant, sudden or life threatening deterioration of the following system(s) required my full and direct attention, intervention and personal management. The time I documented below is in addition to time spent performing reported procedures but includes the following listed in this critical care notation. Medical Decision Making - Medical Records Medical records reviewed: Yes: I reviewed the patient's medical records. - Ty Inquiry Pt receiving controlled substance: Yes Ty was queried for this patient: No Risks and benefits of using a controlled substance: were discussed with pt by me Vital Signs: 03/18/22 09:15 03/18/22 09:35 03/18/22 10:05 Temperature 98.0 F Temperature Source Oral Pulse Rate 54 L 63 Pulse Rate [Right Radial] 54 L Respiratory Rate 18 Blood Pressure 130/87 148/95 H Blood Pressure [Right Arm] 143/92 H Blood Pressure Mean 101 103 Blood Pressure Mean [Right Arm] 109 Blood Pressure Source [Right Arm] Automatic Cuff Blood Pressure Position [Right Arm] Sitting 02 Sat by Pulse Oximetry 99 98 99 Oxygen Delivery Method Room Air 03/18/22 10:20 03/18/22 10:35 03/18/22 10:50 Temperature Temperature Source Pulse Rate 63 54 L 53 L Pulse Rate [Right Radial] Respiratory Rate Blood Pressure 156/92 H 140/93 H 135/84 Blood Pressure [Right Arm] Blood Pressure Mean 102 102 97 Blood Pressure Mean [Right Arm] Blood Pressure Source [Right Arm] Blood Pressure Position [Right Arm] 02 Sat by Pulse Oximetry 99 97 98 Oxygen Delivery Method 03/18/22 11:05 Temperature Temperature Source Pulse Rate 54 L Pulse Rate [Right Radial] Respiratory Rate Blood Pressure 130/80 Blood Pressure [Right Arm] Blood Pressure Mean 93 Blood Pressure Mean [Right Arm] Blood Pressure Source [Right Arm] Blood Pressure Position [Right Arm] 02 Sat by Pulse Oximetry 97 Oxygen Delivery Method - Lab Data Lab Results 03/18/22 09:29: WBC 23.6 H*, RBC 3.72 L, Hgb 12.1 L, Hct 38.7 L, MCV 103.9 H, MCH 32.5 H, MCHC 31.3 L, RDW 13.7, Plt Count 325, MPV 10.1, Neut % (Auto) 90.3 H, Lymph % (Auto) 3.2 L, [place] % (Auto) 5.5, Eos % (Auto) 0.8, Baso % (Auto) 0.3, Neut # (Auto) 21.4 H, Lymph # (Auto) 0.8, [place] # (Auto) 1.3 H, Eos # (Auto) 0.2, Baso # (Auto) 0.1, Total Counted 100, Neutrophils % (Manual) 92 H, Lymphocytes % (Manual) 5 L, Monocytes % (Manual) 3, Platelet Estimate Normal, Macrocytosis 1+ 03/18/22 09:29: Sodium 133 L, Potassium 3.9, Chloride 92 L, Carbon Dioxide 32 H, Anion Gap 12.9, BUN 47 H, Creatinine 1.50 H, Estimated Creat Clear 55, Estimated GFR 49 L, Est GFR ( Amer) 59, Glucose 141 H, Calcium 9.7, Magnesium 2.1, Total Bilirubin 0.8, AST 26, ALT 20, Alkaline Phosphatase 156 H, Troponin I 0.13 H, C-Reactive Protein 406.9 H, Total Protein 7.9, Albumin 4.1, Globulin 3.8 H, Albumin/Globulin Ratio 1.1, Lipase 54 03/18/22 09:29: Lactate 1.6 03/18/22 09:36: SARS-CoV-2 (PCR) Not detected, Influenza A Untype (PCR) Not detected, Influenza Type B (PCR) Not detected Result diagrams: 03/18/22 09:29 03/18/22 09:29 Orders (Tests/Meds): ED MEDICATIONS Generic Name Dose Route Start Last Admin Trade Name Freq PRN Reason Stop Dose Admin Hydromorphone HCl 1 mg 03/18/22 12:17 Hydromorphone 2mg/Ml Syringe IV 04/17/22 12:16 Q4HP PRN Severe Pain Lactated Ringer's 1,000 mls @ 50 mls/hr 03/18/22 12:30 Lactated Ringer's 1000 Ml Bag IV 04/17/22 12:29 .Q20H DANA Promethazine HCl 25 mg 03/18/22 12:17 Promethazine Hcl 25mg/Ml 1ml Vial IV 04/17/22 12:16 Q6HP PRN Nausea And Vomiting Sodium Chlor
--- NOTE | 2022-03-18 09:46 | PC.NURSE ---
pt medicated per MAR for pain, pt resting in bed, visitor at BS. Will continue to monitor
[2022-03-18 09:47] LABS: Coronavirus 19, PCR Not Detected (NotDetected); Influenza A, PCR Not Detected (NotDetected); Influenza B, PCR Not Detected (NotDetected)
[2022-03-18 09:47] LABS: Alanine Aminotransferase 20 U/L (12-78); Alkaline Phosphatase 156 U/L (38-126); Anion Gap 12.9 mEq/L (5-15); Aspartate Amino Transferase 26 U/L (17-59); Bilirubin,Total 0.8 mg/dl (0.2-1.3); Blood Urea Nitrogen 47 mg/dl (9-20); Carbon Dioxide 32 mmol/L (22.0-30.0); Creatinine Clearance Estimated 55 mL/min (50-200); Estimated Glomerular Filt Rate 49 ml/min (>60); GFR (African American) 59 ML/MIN (>60); Lipase 54 U/L (23-300)
[2022-03-18 09:48] LABS: Albumin Level 4.1 g/dl (3.5-5.0); Albumin/Globulin Ratio 1.1 (1.1-1.8); Calcium 9.7 mg/dl (8.4-10.2); Globulin 3.8 g/dL (1.3-3.2); Glucose 141 mg/dl (74-100); Magnesium 2.1 mg/dl (1.6-2.3); Total Protein,Serum 7.9 g/dl (6.3-8.2)
[2022-03-18 09:49] LABS: Basophils # 0.1 K/mm3 (0-0.2); Basophils % 0.3 % (0.1-2.0); Eosinophils # 0.2 K/mm3 (0.0-0.4); Eosinophils % 0.8 % (0.1-12.0); Hematocrit 38.7 % (42.0-52.0); Hemoglobin 12.1 g/dL (14.1-18.0); Lymphocytes # 0.8 K/mm3 (0.7-4.5); Lymphocytes % 3.2 % (10-50); Mean Corpuscular HGB Conc 31.3 g/dL (31.8-35.4); Mean Corpuscular Hemoglobin 32.5 pg (27.0-31.2); Mean Corpuscular Volume 103.9 fl (80-94); Mean Platelet Volume 10.1 fl (7.4-10.4); Monocytes # 1.3 K/mm3 (0.1-1.0); Monocytes % 5.5 % (1.7-9.3); Neutrophils # 21.4 K/mm3 (1.8-7.8); Neutrophils % 90.3 % (37.0-80.0); Platelet Count 325 K/mm3 (142-424); Red Blood Count 3.72 M/mm3 (4.60-6.20); Red Cell Distribution Width 13.7 % (11.5-17.5); White Blood Count 23.6 K/mm3 (4.8-10.8)
--- NOTE | 2022-03-18 09:51 | PC.NURSE ---
rad at BS transporting pt to CT
[2022-03-18 09:55] LABS: Lactic Acid 1.6 mmol/L (0.7-2.1); MANUAL DIFFERENTIAL MANUAL DIFFERENTIAL (MANUAL DIFF)
[2022-03-18 10:03] LABS: Troponin I 0.13 ng/ml (0.00-0.034)
--- NOTE | 2022-03-18 10:03 | PC.NURSE ---
pt ambulatory back from CT without complications. family at BS
[2022-03-18 10:07] LABS: C-Reactive Protein 406.9 mg/L (0-4)
[2022-03-18 10:08] LABS: Lymphocytes % 5 % (10-50); Macrocytosis 1+; Monocytes % 3 % (2-9); Neutrophils % 92 % (42-76); Platelet Estimate Normal; Total Cells Counted 100
--- NOTE | 2022-03-18 10:33 | PC.NURSE ---
rounded on pt at this time, pt reports still cold, temperature checked 98.4 additional warm blanket given. Pt reports pain medication has helped. will continue to monitor
--- NOTE | 2022-03-18 10:57 | PC.NURSE ---
contacted radiology to check on status of CT result, spoke with shereen states its in locked status so they are reading it now. Notified FABIAN RAMÍREZ
--- NOTE | 2022-03-18 11:30 | PC.NURSE ---
FABIAN RAMÍREZ speaking with Dr. Woodward who is continuous crusher operator for service pts.
--- NOTE | 2022-03-18 11:34 | PC.NURSE ---
ER MD at speaking with patient and family at BS going over test results/POC at this time
--- NOTE | 2022-03-18 11:35 | PC.NURSE ---
waiting director of curriculum and instruction back from per ER MD request to consult on pt.
--- NOTE | 2022-03-18 11:38 | PC.NURSE ---
FABIAN RAMÍREZ speaking with Dr. 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
--- NOTE | 2022-03-18 11:51 | PC.NURSE ---
Contacting [facility] for possible patient transfer
--- NOTE | 2022-03-18 12:04 | PC.NURSE ---
pt medicated peer MAR for pain. pt updated on POC
--- NOTE | 2022-03-18 12:07 | PC.NURSE ---
Awaiting call back from [facility]
--- NOTE | 2022-03-18 12:10 | PC.NURSE ---
FABIAN RAMÍREZ speaking with [facility] at this time
--- NOTE | 2022-03-18 12:16 | PC.NURSE ---
pt put on wait list at , [facility] states it will approx tomorrow before receiving a bed. contacted dr. lizarraga to update him, states okay to proceed with admission for pt.
--- NOTE | 2022-03-18 12:19 | PC.NURSE ---
notified care management of admission
--- NOTE | 2022-03-18 12:22 | PC.NURSE ---
updated pt on POC (admission and on waiting list at ). Pt verbalized understanding, states no needs at this time. Has urinal at BS. Will continue to monitor
--- NOTE | 2022-03-18 12:29 | PC.NURSE ---
waiting collection officer back from second floor to get report, receiving nurse was unavailable.
--- NOTE | 2022-03-18 12:34 | HMH.PHAINT ---
MEDICATION RECONCILIATION COMPLETED ON PATIENT USING EXTERNAL FILL HISTORY FROM PHARMACY AND [facility] [place]. -ANUSHA EDGE, ARTUROD
--- NOTE | 2022-03-18 12:36 | P.CONPHA_ITS ---
[facility] Pharmacy VTE Monitoring - Patient Demographics Admission date: 03/18/22 Report Date: 03/18/22 Time: 12:36 Allergies/Adverse Reactions: Patient Allergies cephalexin Allergy (Mild, Verified 01/05/22 10:31) Rash morphine Allergy (Verified 03/18/22 09:35) Vomiting acetaminophen [From Tylenol] Adverse Reaction (Mild, Verified 01/05/22 10:31) Nausea Height: 1.93 m Weight: 70.307 kg Patient Problems: Current Active Problems Partial small bowel obstruction (Acute) - VTE Risk Labs: VTE Related Lab Results Hgb 12.1 g/dL (14.1-18.0) L 03/18/22 09:29 Hct 38.7 % (42.0-52.0) L 03/18/22 09:29 Plt Count 325 K/mm3 (142-424) 03/18/22 09:29 BUN 47 mg/dl (9-20) H 03/18/22 09:29 Creatinine 1.50 mg/dl (0.66-1.25) H 03/18/22 09:29 Estimated Creat Clear 55 mL/min (50-200) 03/18/22 09:29 - Prophylaxis VTE Prophylaxis Ordered?: Yes Types of VTE Prophylaxis: TEDS Knee High Location of Applied Device: Bilateral Lower Extremeties
--- NOTE | 2022-03-18 12:39 | PC.NURSE ---
report called to amberly roca on second floor at this time, states she will send staff down to transport pt
--- NOTE | 2022-03-18 12:52 | PC.NURSE ---
patient arrived to floor
[2022-03-18 13:54] LABS: Troponin I 0.11 ng/ml (0.00-0.034)
[2022-03-18 14:16] LABS: Microscopic, Urine URINE MICROSCOPIC (MICROSCOPIC)
[2022-03-18 14:18] LABS: Appearance,Urine CLEAR (Clear); Bilirubin,Urine Negative (Negative); Blood, Urine 1+ (Negative); Color,Urine YELLOW (Yellow); Glucose,Urine (UA) Negative (Negative); Ketones,Urine TRACE (Negative); Leukocyte Esterase,Urine Negative (Negative); Nitrate,Urine Negative (Negative); Protein,Urine 2+ (Negative); Specific Gravity, Urine 1.015 (1.005-1.030)
[2022-03-18 14:30] LABS: Bacteria,Urine Trace /lpf; RBC,Urine Occasional #/hpf (0-3); Squamous Epithelial Cell,Urine Occasional #/hpf (0-5); WBC,Urine Occasional #/hpf (0-3)
--- NOTE | 2022-03-18 15:24 | HMH.GSCON ---
*Admission Date: 03/18/22 *Reason for consult:: Enteritis; partial small bowel obstruction *History of present illness: This is a 56-year-old gentleman seen in consultation from Dr. Woodward for evaluation regarding enteritis with concomitant partial bowel obstruction. Please see HPI forwarded from emergency department evaluation below. He has required admission on 2 separate occasions for similar symptoms. On one occasion he was treated nonoperatively at this facility. On a separate occasion he was transferred to the [facility] and ultimately treated nonoperatively. He states the only difference is that the pain is a little worse this time . Abdominal Pain HPI - General Chief Complaint: Abdominal Pain Stated Complaint: Stomach pain, vomitting, fatigue Time Seen by Provider: 03/18/22 09:15 Mode of Arrival: Ambulatory Limitations: No Limitations Description of Symptoms (Recalled from ER Triage Doc. by RN): Pt reports lower abd pain x3 days with n/v. Pt reports vomitting bile . Pt reports has had intermittent fever. Pt reports hx of colon cancer with colostomy and reversle and hx of bowel obstruction. Pt also reports hx of weight loss over a period of time . Pt was unsure how long of a period of time weight loss has occured when asked. 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 He says that over the last 3 days he is gotten progressively worsening generalized abdominal pain. He locates it throughout his entire abdomen. He says that he has also been extremely nauseous and had quite a bit of bilious emesis. He is not taking anything to manage this. Movement makes his pain worse. He says that he has only had very small liquid bowel movements once over the last 3 days. No blood. No blood in his vomit. Chest pain or shortness of breath. Review of Systems - Constitutional Denies chills - *Cardiovascular Denies chest pain - *Gastrointestinal Reports abdominal pain, Reports nausea, Reports vomiting [facility] History Medical History: Reports:: Cancer, MRSA Denies:: Diabetes Mellitus Type 1, Diabetes Mellitus Type 2, Internal Pacemaker, Lung Disease, Seizures *Have you ever received a pneumonia vaccine?: Yes *Have you received a flu vaccine this season?: No Other Medical History: Reports: Anemia, Other. Denies: Blood Transfusion Reaction Laterality Cases: Right: ACL Repair, Arthroscopy Knee Other Surgeries: Yes: Cancer Surgery, Colonoscopy, Colon Resection, Colostomy, Diagnostic Lap, Splenectomy, Other (L5-S1 disc, Right ACL). No: Pacemaker Amputation: No Fractures: No - *Social History Smoking Status: Light tobacco smoker Tobacco Type: cigarettes # Packs/Day (cigarettes): 1 #Yrs smoked (if former smoker): 10 Alcohol Intake: never Alcohol Intake Frequency:: holidays/special occasions only Substance Use Type: denies use *Occupational Status:: other Housing: house Household Members: family, children *Travel in the last 8 weeks: None Family Hx:: Cancer, Hyperlipidemia, Hypertension Meds Home Medications Medication Instructions Recorded Confirmed Type Duloxetine HCl [Cymbalta] 60 mg PO DAILY 03/18/22 03/18/22 History Pregabalin 100 mg PO BID 03/18/22 03/18/22 History Allergies Allergy/AdvReac Type Severity Reaction Status Date / Time cephalexin Allergy Mild Rash Verified 01/05/22 10:31 morphine Allergy Vomiting Verified 03/18/22 09:35 acetaminophen [From Tylenol] AdvReac Mild Nausea Verified 01/05/22 10:31 Exam Vital signs and Labs for Last 24 Hours: Temp Pulse Resp BP Pulse
--- NOTE | 2022-03-18 17:28 | HMH.HP ---
*Admission Date: 03/18/22 *Chief complaint: Abd pain *History of present illness: HPI narrative: Patient is a 56-year-old male with a past medical history of adenocarcinoma of the rectum stage T4N3 diagnosed in September 2017 and has been treated with colon resection with colostomy, colostomy reversal, and chemotherapy and subsequent partial bowel obstruction x2 who presents with abdominal pain. He says that over the last 3 days he is gotten progressively worsening generalized abdominal pain. He locates it throughout his entire abdomen. He says that he has also been extremely nauseous and had quite a bit of bilious emesis. He is not taking anything to manage this. Movement makes his pain worse. He says that he has only had very small liquid bowel movements once over the last 3 days. No blood. No blood in his vomit. Chest pain or shortness of breath. Above note per emergency department. Patient is here a couple of episodes of small bowel obstruction treated nonoperatively over the past couple of years. He states this feels very similar. He notes that he is had some bowel movements but feels bloated and tender and does not feel like he can eat well. Admitted to hospital for further evaluation, surgical consultation and bowel rest and IV fluids. [facility] History I have reviewed the patient's past medical history: Yes Medical History: Reports:: Cancer, MRSA Denies:: Diabetes Mellitus Type 1, Diabetes Mellitus Type 2, Internal Pacemaker, Lung Disease, Seizures *Have you ever received a pneumonia vaccine?: Yes *Have you received a flu vaccine this season?: No Other Medical History: Reports: Anemia, Other. Denies: Blood Transfusion Reaction Laterality Cases: Right: ACL Repair, Arthroscopy Knee Other Surgeries: Yes: Cancer Surgery, Colonoscopy, Colon Resection, Colostomy, Diagnostic Lap, Splenectomy, Other (L5-S1 disc, Right ACL). No: Pacemaker Amputation: No Fractures: No - *Social History Smoking Status: Light tobacco smoker Tobacco Type: cigarettes # Packs/Day (cigarettes): 1 #Yrs smoked (if former smoker): 10 Alcohol Intake: never Alcohol Intake Frequency:: holidays/special occasions only Substance Use Type: denies use *Occupational Status:: other Housing: house Household Members: family, children *Travel in the last 8 weeks: None Family Hx:: Cancer, Hyperlipidemia, Hypertension Review of Systems - Review of Systems Review of systems:: pertinent systems reviewed and negative unless documented below Meds Home Medications Medication Instructions Recorded Confirmed Type Duloxetine HCl [Cymbalta] 60 mg PO DAILY 03/18/22 03/18/22 History Pregabalin 100 mg PO BID 03/18/22 03/18/22 History Allergies Allergy/AdvReac Type Severity Reaction Status Date / Time cephalexin Allergy Mild Rash Verified 01/05/22 10:31 morphine Allergy Vomiting Verified 03/18/22 09:35 acetaminophen [From Tylenol] AdvReac Mild Nausea Verified 01/05/22 10:31 Exam Vital signs and Labs for Last 24 Hours: Temp Pulse Resp BP Pulse Ox 98.6 F 50 L 16 137/79 98 03/18/22 15:19 03/18/22 16:00 03/18/22 15:19 03/18/22 15:19 03/18/22 15:19 Laboratory Results - last 24 hr 03/18/22 09:29: WBC 23.6 H*, RBC 3.72 L, Hgb 12.1 L, Hct 38.7 L, MCV 103.9 H, MCH 32.5 H, MCHC 31.3 L, RDW 13.7, Plt Count 325, MPV 10.1, Neut % (Auto) 90.3 H, Lymph % (Auto) 3.2 L, [place] % (Auto) 5.5, Eos % (Auto) 0.8, Baso % (Auto) 0.3, Neut # (Auto) 21.4 H, Lymph # (Auto) 0.8, [place] # (Auto) 1.3 H, Eos # (Auto) 0.2, Baso # (Auto) 0.1, Total Counted 100, Neutrophils % (Manual) 92 H, Lymphocytes % (Manual) 5 L, Monocytes % (Manual) 3, Platelet Estimate Normal, Macrocytosis 1+ 03/18/22 09:29: Sodium 133 L, Potassium 3.9, Chloride 92 L, Carbon Dioxide 32 H, Anion Gap 12.9, BUN 47 H, Creatinine 1.50 H, Estimated Creat Clear 55, Estimated GFR 49 L, Est GFR ( Amer) 59, Glucose 141 H, Calcium 9.7, Magnesium 2.1, Total Bilirubin 0.8, AST 26, ALT 20, Alkaline Phosphatase 156 H, T
--- NOTE | 2022-03-18 19:03 | PC.NURSE ---
No changes since prior assessment. Pain med given per sep. VSS. Sinus suzanna on tele. CB in reach. NAD.
[2022-03-19] VITALS (10 sets, daily range): BP systolic 140–173; BP diastolic 71–89; PULSE 40–70; RESP 14–19; TEMP 36.7–37.1; O2SAT 97–100; BMI 16.5
--- NOTE | 2022-03-19 04:56 | PC.NURSE ---
Patient A&ox4. Patient does report abdominal pain throughout shift. Medicated patient per mar. Hyperactive bowl sounds noted with tenderness. No BM's this shift. Patient has been sinus suzanna on tele.
[2022-03-19 06:18] LABS: Chloride 96 mmol/L (98-107); Sodium 133 mmol/L (136-145)
[2022-03-19 06:21] LABS: Alanine Aminotransferase 16 U/L (12-78); Albumin Level 3.5 g/dl (3.5-5.0); Albumin/Globulin Ratio 1.1 (1.1-1.8); Alkaline Phosphatase 152 U/L (38-126); Aspartate Amino Transferase 27 U/L (17-59); Bilirubin,Total 0.8 mg/dl (0.2-1.3); Blood Urea Nitrogen 41 mg/dl (9-20); Calcium 9.2 mg/dl (8.4-10.2); Carbon Dioxide 29 mmol/L (22.0-30.0); Creatinine Clearance Estimated 65 mL/min (50-200); Estimated Glomerular Filt Rate 69 ml/min (>60); GFR (African American) 84 ML/MIN (>60); Globulin 3.3 g/dL (1.3-3.2); Glucose 124 mg/dl (74-100); Lactic Acid 0.6 mmol/L (0.7-2.1); Total Protein,Serum 6.8 g/dl (6.3-8.2)
[2022-03-19 06:23] LABS: Basophils % 0.2 % (0.1-2.0); Eosinophils % 0.1 % (0.1-12.0); Hematocrit 33.3 % (42.0-52.0); Hemoglobin 10.9 g/dL (14.1-18.0); Lymphocytes # 0.7 K/mm3 (0.7-4.5); Lymphocytes % 3.3 % (10-50); Mean Corpuscular HGB Conc 32.6 g/dL (31.8-35.4); Mean Corpuscular Hemoglobin 32.9 pg (27.0-31.2); Mean Platelet Volume 9.7 fl (7.4-10.4); Monocytes # 1.2 K/mm3 (0.1-1.0); Monocytes % 5.6 % (1.7-9.3); Neutrophils # 19.3 K/mm3 (1.8-7.8); Neutrophils % 90.8 % (37.0-80.0); Platelet Count 289 K/mm3 (142-424); Red Cell Distribution Width 13.6 % (11.5-17.5); White Blood Count 21.2 K/mm3 (4.8-10.8)
[2022-03-19 06:31] LABS: MANUAL DIFFERENTIAL MANUAL DIFFERENTIAL (MANUAL DIFF)
--- NOTE | 2022-03-19 06:51 | XR_ITS ---
FINAL REPORT CLINICAL HISTORY: enteritis/ileus vs. sbo COMPARISON: CT dated 03/18/2022 FINDINGS: Chest: A single view of the chest demonstrates no acute cardiopulmonary process. Abdomen: Flat and upright views of the abdomen demonstrate multiple air-filled and distended large and small bowel. There is no free air. IMPRESSION: Air-filled and distended small and large bowel may represent ileus or enteritis. Partial small bowel obstruction can not be excluded. Additional follow-up radiographs may be helpful. Reviewed, Interpreted and Dictated by Romario Maciel III, MD Transcribed by Vivek Angeles Authenticated and [facility]
[2022-03-19 07:39] LABS: Lymphocytes % 3 % (10-50); Monocytes % 9 % (2-9); Neutrophils % 81 % (42-76); Total Cells Counted 100
--- NOTE | 2022-03-19 07:39 | HMH.GSPN ---
Subjective Patient reports: no new complaints, still having pain, flatus Narrative: He states that he had difficulty getting comfortable overnight and did not sleep well . He states that he has not had a bowel movement but has passed a little gas overnight . Progress Note: A&P (1) Enteritis Status: Acute Assessment and plan: White blood cell count remains elevated. Most likely viral etiology; however, secondary bacterial involvement remains a possibility. If bacterial involvement exits...it is somewhat unlikely to be encapsulated organism ; however, the patient's postsplenectomy status noted. Will discuss with primary service the efficacy of beginning antibiotic coverage. (2) Small bowel obstruction, partial Status: Acute Assessment and plan: No evidence of complete obstruction. He describes passing some gas overnight . Flat/upright films ordered. Exam Vital signs and Labs for Last 24 Hours: Temp Pulse Resp BP Pulse Ox 98.4 F 50 L 19 140/76 97 03/19/22 03:59 03/19/22 05:19 03/19/22 03:59 03/19/22 03:59 03/19/22 03:59 Laboratory Results - last 24 hr 03/18/22 09:29: WBC 23.6 H*, RBC 3.72 L, Hgb 12.1 L, Hct 38.7 L, MCV 103.9 H, MCH 32.5 H, MCHC 31.3 L, RDW 13.7, Plt Count 325, MPV 10.1, Neut % (Auto) 90.3 H, Lymph % (Auto) 3.2 L, [place] % (Auto) 5.5, Eos % (Auto) 0.8, Baso % (Auto) 0.3, Neut # (Auto) 21.4 H, Lymph # (Auto) 0.8, [place] # (Auto) 1.3 H, Eos # (Auto) 0.2, Baso # (Auto) 0.1, Total Counted 100, Neutrophils % (Manual) 92 H, Lymphocytes % (Manual) 5 L, Monocytes % (Manual) 3, Platelet Estimate Normal, Macrocytosis 1+ 03/18/22 09:29: Sodium 133 L, Potassium 3.9, Chloride 92 L, Carbon Dioxide 32 H, Anion Gap 12.9, BUN 47 H, Creatinine 1.50 H, Estimated Creat Clear 55, Estimated GFR 49 L, Est GFR ( Amer) 59, Glucose 141 H, Calcium 9.7, Magnesium 2.1, Total Bilirubin 0.8, AST 26, ALT 20, Alkaline Phosphatase 156 H, Troponin I 0.13 H, C-Reactive Protein 406.9 H, Total Protein 7.9, Albumin 4.1, Globulin 3.8 H, Albumin/Globulin Ratio 1.1, Lipase 54 03/18/22 09:29: Lactate 1.6 03/18/22 09:36: SARS-CoV-2 (PCR) Not detected, Influenza A Untype (PCR) Not detected, Influenza Type B (PCR) Not detected 03/18/22 13:28: Troponin I 0.11 H 03/18/22 14:08: Urine Color Yellow, Urine Appearance Clear, Urine pH 6.0, Ur Specific [place] 1.015, Urine Protein 2+, Urine Glucose (UA) Negative, Urine Ketones Trace, Urine Blood 1+, Urine Nitrate Negative, Urine Bilirubin Negative, Urine Urobilinogen 1.0, Ur Leukocyte Esterase Negative, Urine RBC Occasional, Urine WBC Occasional, Ur Squamous Epith Cells Occasional, Urine Bacteria Trace 03/18/22 15:30: Troponin I 0.10 H 03/19/22 05:50: WBC 21.2 H*, RBC 3.30 L, Hgb 10.9 L, Hct 33.3 L, MCV 101.0 H, MCH 32.9 H, MCHC 32.6, RDW 13.6, Plt Count 289, MPV 9.7, Neut % (Auto) 90.8 H, Lymph % (Auto) 3.3 L, [place] % (Auto) 5.6, Eos % (Auto) 0.1, Baso % (Auto) 0.2, Neut # (Auto) 19.3 H, Lymph # (Auto) 0.7, [place] # (Auto) 1.2 H, Eos # (Auto) 0.0, Baso # (Auto) 0.0 03/19/22 05:50: Sodium 133 L, Potassium 4.0, Chloride 96 L, Carbon Dioxide 29, Anion Gap 12.0, BUN 41 H, Creatinine 1.10 D, Estimated Creat Clear 65, Estimated GFR 69, Est GFR ( Amer) 84 D, Glucose 124 H, Calcium 9.2, Total Bilirubin 0.8, AST 27, ALT 16, Alkaline Phosphatase 152 H, Total Protein 6.8, Albumin 3.5 D, Globulin 3.3 H, Albumin/Globulin Ratio 1.1 03/19/22 05:50: Lactate 0.6 L I & O for Last 24 hours: Intake & Output 03/16/22 03/17/22 03/18/22 03/19/22 11:59 11:59 11:59 11:59 Intake Total 135 / 135 Output Total 1125 / 1125 Balance -990 / -990 Weight 155 lb 133 lb 4 oz - Constitutional no acute distress - *Routine Respiratory Exam Absent: respiratory distress - *Routine Cardiovascular Exam Absent: tachycardia - *Routine Abdominal Exam Present: tenderness
[2022-03-19 07:40] LABS: Anisocytosis 1+; Macrocytosis 1+; Ovalocytes 1+; Platelet Estimate Normal
--- NOTE | 2022-03-19 08:30 | HMH.ACPN2 ---
Internal Medicine - PN: Subj *Date: 03/19/22 *Time: 08:30 Interval history: Patient is really about the same overnight. Reports that he has had some flatus. No solid stool or liquid stool. No fever. He has not vomited or had significant nausea. He reports his pain and distention is about the same. Surgical note reviewed and appreciated. Discussed case personally with general surgery service. Exam Vital signs and Labs for Last 24 Hours: Temp Pulse Resp BP Pulse Ox 98.1 F 45 L 14 150/78 H 99 03/19/22 08:00 03/19/22 08:00 03/19/22 08:00 03/19/22 08:00 03/19/22 08:00 Laboratory Results - last 24 hr 03/18/22 09:29: WBC 23.6 H*, RBC 3.72 L, Hgb 12.1 L, Hct 38.7 L, MCV 103.9 H, MCH 32.5 H, MCHC 31.3 L, RDW 13.7, Plt Count 325, MPV 10.1, Neut % (Auto) 90.3 H, Lymph % (Auto) 3.2 L, [place] % (Auto) 5.5, Eos % (Auto) 0.8, Baso % (Auto) 0.3, Neut # (Auto) 21.4 H, Lymph # (Auto) 0.8, [place] # (Auto) 1.3 H, Eos # (Auto) 0.2, Baso # (Auto) 0.1, Total Counted 100, Neutrophils % (Manual) 92 H, Lymphocytes % (Manual) 5 L, Monocytes % (Manual) 3, Platelet Estimate Normal, Macrocytosis 1+ 03/18/22 09:29: Sodium 133 L, Potassium 3.9, Chloride 92 L, Carbon Dioxide 32 H, Anion Gap 12.9, BUN 47 H, Creatinine 1.50 H, Estimated Creat Clear 55, Estimated GFR 49 L, Est GFR ( Amer) 59, Glucose 141 H, Calcium 9.7, Magnesium 2.1, Total Bilirubin 0.8, AST 26, ALT 20, Alkaline Phosphatase 156 H, Troponin I 0.13 H, C-Reactive Protein 406.9 H, Total Protein 7.9, Albumin 4.1, Globulin 3.8 H, Albumin/Globulin Ratio 1.1, Lipase 54 03/18/22 09:29: Lactate 1.6 03/18/22 09:36: SARS-CoV-2 (PCR) Not detected, Influenza A Untype (PCR) Not detected, Influenza Type B (PCR) Not detected 03/18/22 13:28: Troponin I 0.11 H 03/18/22 14:08: Urine Color Yellow, Urine Appearance Clear, Urine pH 6.0, Ur Specific [place] 1.015, Urine Protein 2+, Urine Glucose (UA) Negative, Urine Ketones Trace, Urine Blood 1+, Urine Nitrate Negative, Urine Bilirubin Negative, Urine Urobilinogen 1.0, Ur Leukocyte Esterase Negative, Urine RBC Occasional, Urine WBC Occasional, Ur Squamous Epith Cells Occasional, Urine Bacteria Trace 03/18/22 15:30: Troponin I 0.10 H 03/19/22 05:50: WBC 21.2 H*, RBC 3.30 L, Hgb 10.9 L, Hct 33.3 L, MCV 101.0 H, MCH 32.9 H, MCHC 32.6, RDW 13.6, Plt Count 289, MPV 9.7, Neut % (Auto) 90.8 H, Lymph % (Auto) 3.3 L, [place] % (Auto) 5.6, Eos % (Auto) 0.1, Baso % (Auto) 0.2, Neut # (Auto) 19.3 H, Lymph # (Auto) 0.7, [place] # (Auto) 1.2 H, Eos # (Auto) 0.0, Baso # (Auto) 0.0, Total Counted 100, Neutrophils % (Manual) 81 H, Band Neutrophils % 7.0, Lymphocytes % (Manual) 3 L, Monocytes % (Manual) 9, Platelet Estimate Normal, Anisocytosis 1+, Macrocytosis 1+, Ovalocytes 1+ 03/19/22 05:50: Sodium 133 L, Potassium 4.0, Chloride 96 L, Carbon Dioxide 29, Anion Gap 12.0, BUN 41 H, Creatinine 1.10 D, Estimated Creat Clear 65, Estimated GFR 69, Est GFR ( Amer) 84 D, Glucose 124 H, Calcium 9.2, Total Bilirubin 0.8, AST 27, ALT 16, Alkaline Phosphatase 152 H, Total Protein 6.8, Albumin 3.5 D, Globulin 3.3 H, Albumin/Globulin Ratio 1.1 03/19/22 05:50: Lactate 0.6 L I & O for Last 24 hours: Intake & Output 03/16/22 03/17/22 03/18/22 03/19/22 11:59 11:59 11:59 11:59 Intake Total 135 / 135 Output Total 1125 / 1125 Balance -990 / -990 Weight 155 lb 133 lb 4 oz Narrative: Alert, pleasant. Lungs with good air movement, heart rate regular. Abdomen slightly distended and tender. Really about the same as yesterday. Bowel sounds noted. Extremities without edema or clubbing. Assessment and Plan (1) Enteritis Status: Acute Category: Medical Code(s): K52.9 - Noninfective gastroenteritis and colitis, unspecified (2) Small bowel obstruction, partial Status: Acute Category: Medical Code(s): K56.600 - Partial intestinal obstruction, unspecified as to cause - Assessment and plan all Dx Assessment and Plan for all problems:: Given persistent leukocytosis
--- NOTE | 2022-03-19 15:23 | PC.NURSE ---
rounded on patient. no concerns or questions in regards to plan of care. also updated patient mom when she was here. educated on bowel rest. no needs expressed. encouraged them to ring out with any needs or concerns.
--- NOTE | 2022-03-19 15:30 | XR_ITS ---
FINAL REPORT CLINICAL HISTORY: enteritis/ileus vs. sbo COMPARISON: Earlier the same day FINDINGS: Chest: A single view of the chest demonstrates no acute cardiopulmonary process. Abdomen: Flat and upright views of the abdomen again demonstrate multiple air-filled, distended large and small bowel loops. There is slightly improved small bowel dilatation since the prior exam. Differential diagnosis again is ileus versus enteritis versus partial small bowel obstruction. IMPRESSION: Persistent but improved small bowel dilatation. Reviewed, Interpreted and Dictated by Romario Maciel III, MD Transcribed by Chelsea Alarcon Authenticated and [facility]
--- NOTE | 2022-03-19 15:31 | PC.NURSE ---
Pt with RAD at this time.
--- NOTE | 2022-03-19 15:38 | PC.WOUNDNOTE ---
No bed available still at this time at . Update given to Estelle.
--- NOTE | 2022-03-19 18:38 | PC.NURSE ---
Addendum entered by Lorenzo Wilson RN 03/19/22 18:40: Did also receive orders for lyrica, cymbalta and benadryl from Dr. Woodward per sep. Original Note: Spoke with Dr. Mcfarlane and update him on fact that pt hasnt had a bm. Pt remains on wait lsit for . Meds given per mar. Pain is biggest factor at this time. BS active and cb in reach. Remains sinus suzanna on tele.
[2022-03-20] VITALS (7 sets, daily range): BP systolic 125–149; BP diastolic 71–81; PULSE 46–60; RESP 16–18; TEMP 36.7–37.2; O2SAT 97–100; BMI 16.7
--- NOTE | 2022-03-20 05:06 | PC.NURSE ---
PT IS ALERT AND ORIENTED X4. LUNG SOUNDS REMAIN CLEAR BILATERALLY. ABDOMEN REMAINS SOFT AND TENDER. BOWEL SOUNDS ARE ACTIVE IN ALL 4 QUADS. PT DID TRY TO GET UP AT THE BEGINNING OF THE SHIFT TO HAVE A BOWEL MOVEMENT BUT STILL HAS NOT. PT HAS C/O ABDOMINAL PAIN THROUGHOUT THE NIGHT AND HAS BEEN MEDICATED PER MAR Q4HRS PRN AND WAS GIVEN A BENADRYL FOR SLEEP. NO C/O NAUSEA OR VOMITING THIS SHIFT. PT HAS BEEN AMBULATING TO THE BATHROOM INDEPENDENTLY. STILL AWAITING A BED AT [facility]. NO FURTHER COMPLAINTS OR CONCERNS.
--- NOTE | 2022-03-20 06:00 | XR_ITS ---
PROCEDURE INFORMATION: Exam: XR Complete Acute Abdomen Series Including Chest Exam date and time: 03/20/2022 5:50 AM Age: 56 years old Clinical indication: Condition or disease; Intestinal condition; Obstruction; Additional info: Enteritis/ileus vs. Sbo TECHNIQUE: Imaging protocol: Radiologic exam. Complete acute abdomen series, including 2 or more views of the abdomen and a single view chest. COMPARISON: CR XR ACUTE ABDOMEN SERIES 03/19/2022 3:34 PM FINDINGS: Lungs: Emphysematous change and interstitial prominence. Pleural spaces: No pleural effusion. Heart/Mediastinum: No cardiomegaly. Gastrointestinal tract: Combined small bowel and colonic dilatation, which was also present on the previous study. Vasculature: Punctate pelvic calcifications, presumably vascular in etiology. Bones/joints: Mild degenerative change. IMPRESSION: 1. Emphysematous change and interstitial prominence. 2. Combined small bowel and colonic dilatation, which was also present on the previous study.
[2022-03-20 06:39] LABS: Chloride 96 mmol/L (98-107)
[2022-03-20 06:40] LABS: Basophils % 0.1 % (0.1-2.0); Eosinophils # 0.1 K/mm3 (0.0-0.4); Eosinophils % 0.4 % (0.1-12.0); Hematocrit 35.5 % (42.0-52.0); Hemoglobin 11.4 g/dL (14.1-18.0); Lymphocytes % 4.8 % (10-50); Mean Corpuscular HGB Conc 32.1 g/dL (31.8-35.4); Mean Corpuscular Hemoglobin 32.7 pg (27.0-31.2); Monocytes # 1.2 K/mm3 (0.1-1.0); Monocytes % 5.9 % (1.7-9.3); Neutrophils # 18.1 K/mm3 (1.8-7.8); Neutrophils % 88.9 % (37.0-80.0); Platelet Count 341 K/mm3 (142-424); Potassium 3.3 mmoL/L (3.5-5.1); Red Blood Count 3.48 M/mm3 (4.60-6.20); Red Cell Distribution Width 13.7 % (11.5-17.5); Sodium 132 mmol/L (136-145); White Blood Count 20.4 K/mm3 (4.8-10.8)
[2022-03-20 06:42] LABS: Alanine Aminotransferase 23 U/L (12-78); Aspartate Amino Transferase 33 U/L (17-59); Blood Urea Nitrogen 32 mg/dl (9-20); Creatinine Clearance Estimated 60 mL/min (50-200); Estimated Glomerular Filt Rate 63 ml/min (>60); GFR (African American) 76 ML/MIN (>60)
[2022-03-20 06:43] LABS: Albumin Level 3.4 g/dl (3.5-5.0); Alkaline Phosphatase 168 U/L (38-126); Anion Gap 8.3 mEq/L (5-15); Bilirubin,Total 0.9 mg/dl (0.2-1.3); Carbon Dioxide 31 mmol/L (22.0-30.0); Globulin 3.4 g/dL (1.3-3.2); Glucose 111 mg/dl (74-100); Total Protein,Serum 6.8 g/dl (6.3-8.2)
[2022-03-20 06:46] LABS: MANUAL DIFFERENTIAL MANUAL DIFFERENTIAL (MANUAL DIFF)
[2022-03-20 07:29] LABS: Magnesium 2.1 mg/dl (1.6-2.3)
--- NOTE | 2022-03-20 07:47 | HMH.ACPN2 ---
Internal Medicine - PN: Subj *Date: 03/20/22 *Time: 08:22 Interval history: Pain somewhat better this morning. Reports passing flatus with a very small amount of stool passed last night. No nausea or vomiting. Tolerating ice chips. Afebrile. Reviewed labs this morning, white cell count marginally improved. Exam Vital signs and Labs for Last 24 Hours: Temp Pulse Resp BP Pulse Ox 99.0 F 50 L 18 143/77 H 97 03/20/22 04:00 03/20/22 05:50 03/20/22 04:00 03/20/22 04:00 03/20/22 04:00 Laboratory Results - last 24 hr 03/20/22 06:09: WBC 20.4 H*, RBC 3.48 L, Hgb 11.4 L, Hct 35.5 L, MCV 102.0 H, MCH 32.7 H, MCHC 32.1, RDW 13.7, Plt Count 341, MPV 10.0, Neut % (Auto) 88.9 H, Lymph % (Auto) 4.8 L, [place] % (Auto) 5.9, Eos % (Auto) 0.4, Baso % (Auto) 0.1, Neut # (Auto) 18.1 H, Lymph # (Auto) 1.0, [place] # (Auto) 1.2 H, Eos # (Auto) 0.1, Baso # (Auto) 0.0 03/20/22 06:09: Sodium 132 L, Potassium 3.3 L, Chloride 96 L, Carbon Dioxide 31 H, Anion Gap 8.3, BUN 32 H, Creatinine 1.20, Estimated Creat Clear 60, Estimated GFR 63, Est GFR ( Amer) 76, Glucose 111 H, Calcium 9.0, Total Bilirubin 0.9, AST 33, ALT 23 D, Alkaline Phosphatase 168 H, Total Protein 6.8, Albumin 3.4 L, Globulin 3.4 H, Albumin/Globulin Ratio 1.0 L 03/20/22 06:09: Magnesium 2.1 I & O for Last 24 hours: Intake & Output 03/17/22 03/18/22 03/19/22 03/20/22 23:59 23:59 23:59 23:59 Intake Total 135 / 135 1192 / 1192 674 / 674 Output Total 700 / 700 1200 / 1400 500 / 500 Balance -565 / -565 -8 / -208 174 / 174 Weight 63.775 kg 60.441 kg 60.951 kg Microbiology Reports for the Last 24 Hours: Microbiology 03/18/22 14:08 Urine,Clean Catch Urine Culture - Preliminary NO GROWTH AFTER 24 HOURS - Constitutional mild distress, thin, cachectic, cooperative - *Routine HEENT Exam Head: Present: normocephalic Eye: Present: EOMI, PERRL ENT: Present: mucous membranes moist - *Routine Neck Exam Present: supple. Absent: lymphadenopathy - *Routine Respiratory Exam Present: CTA bilaterally - *Routine Cardiovascular Exam Present: RRR - *Routine Abdominal Exam Present: soft, tenderness. Absent: rebound Comments: Diffuse tenderness, hypoactive bowel sounds - *Routine Extremities Exam Absent: cyanosis, clubbing, edema - *Routine Skin Exam Present: warm. Absent: rash - *Routine Neurological Exam Present: alert, oriented X3 Assessment and Plan (1) Enteritis Status: Acute Category: Medical Code(s): K52.9 - Noninfective gastroenteritis and colitis, unspecified (2) Small bowel obstruction, partial Status: Acute Category: Medical Code(s): K56.600 - Partial intestinal obstruction, unspecified as to cause (3) Protein calorie malnutrition Status: Acute Category: Medical Code(s): E46 - Unspecified protein-calorie malnutrition (4) History of rectal cancer Status: Chronic Category: Medical Code(s): Z85.048 - Personal history of other malignant neoplasm of rectum, rectosigmoid junction, and anus (5) Leukocytosis Status: Acute Category: Medical Code(s): D72.829 - Elevated white blood cell count, unspecified - Assessment and plan all Dx Assessment and Plan for all problems:: 56-year-old male with history of rectal cancer, status post resection. Follows with GI/colorectal surgery at with Dr. Reina. Has had 2 or 3 episodes of bowel obstruction over the past several years. Presented with abdominal pain, distention, leukocytosis. Concern for obstruction on admission. Showing very slow improvement in function, passing gas in the past 24 hours. No vomiting. Remains afebrile. Still has prominent leukocytosis on broad-spectrum antibiotics for enteritis. Surgery consulted, appreciate their assistance in care. Problems addressed as follows: Enteritis History of rectal cancer Bowel obstruction -Continue ice chips. Serial exams -Surgery consulted, appreciate their recom
[2022-03-20 08:04] LABS: Lymphocytes % 4 % (10-50); Monocytes % 2 % (2-9); Neutrophils % 94 % (42-76); Platelet Estimate Normal; RBC Morphology Normal; Total Cells Counted 100
--- NOTE | 2022-03-20 08:16 | P.PN_ITS ---
Subjective Narrative: The patient states that he has continued to pass flatus. He also states that he had a small bowel movement . He feels a little bit better this morning . Progress Note: A&P (1) Enteritis Status: Acute (2) Small bowel obstruction, partial Status: Acute Assessment and plan: The patient has continued to pass flatus and reports a small bowel movement. Although he does not have evidence of complete obstruction, significant distention still noted radiographically. Cautious clear liquids as directed per nursing (no tray and no carbonation) have been ordered, Continue serial abdominal exams. The patient's oncologic surgeon (Dr. Mayo Colindres) will be the on-call general surgeon at this facility this evening and throughout this weekend. The patient is aware and wishes to discuss management with Dr. Colindres once he is available. Exam Vital signs and Labs for Last 24 Hours: Temp Pulse Resp BP Pulse Ox 99.0 F 50 L 18 143/77 H 97 03/20/22 04:00 03/20/22 05:50 03/20/22 04:00 03/20/22 04:00 03/20/22 04:00 Laboratory Results - last 24 hr 03/20/22 06:09: WBC 20.4 H*, RBC 3.48 L, Hgb 11.4 L, Hct 35.5 L, MCV 102.0 H, MCH 32.7 H, MCHC 32.1, RDW 13.7, Plt Count 341, MPV 10.0, Neut % (Auto) 88.9 H, Lymph % (Auto) 4.8 L, [place] % (Auto) 5.9, Eos % (Auto) 0.4, Baso % (Auto) 0.1, Neut # (Auto) 18.1 H, Lymph # (Auto) 1.0, [place] # (Auto) 1.2 H, Eos # (Auto) 0.1, Baso # (Auto) 0.0, Total Counted 100, Neutrophils % (Manual) 94 H, Lymphocytes % (Manual) 4 L, Monocytes % (Manual) 2, Platelet Estimate Normal, RBC Morphology Normal 03/20/22 06:09: Sodium 132 L, Potassium 3.3 L, Chloride 96 L, Carbon Dioxide 31 H, Anion Gap 8.3, BUN 32 H, Creatinine 1.20, Estimated Creat Clear 60, Estimated GFR 63, Est GFR ( Amer) 76, Glucose 111 H, Calcium 9.0, Total Bilirubin 0.9, AST 33, ALT 23 D, Alkaline Phosphatase 168 H, Total Protein 6.8, Albumin 3.4 L, Globulin 3.4 H, Albumin/Globulin Ratio 1.0 L 03/20/22 06:09: Magnesium 2.1 I & O for Last 24 hours: Intake & Output 03/17/22 03/18/22 03/19/22 03/20/22 11:59 11:59 11:59 11:59 Intake Total 135 / 135 1866 / 1866 Output Total 1125 / 1125 1275 / 1275 Balance -990 / -990 591 / 591 Weight 155 lb 133 lb 3.993 oz 134 lb 6 oz Microbiology Reports for the Last 24 Hours: Microbiology 03/18/22 14:08 Urine,Clean Catch Urine Culture - Preliminary NO GROWTH AFTER 24 HOURS - Constitutional no acute distress - *Routine Respiratory Exam Absent: respiratory distress - *Routine Cardiovascular Exam Absent: tachycardia - *Routine Abdominal Exam Present: tenderness Comments: Overall, the patient's abdomen is somewhat softer and less tender. He does continue to have voluntary guarding (particularly along the right mid and lateral abdomen).
[2022-03-20 12:22] LABS: Adenovirus F 40/41, stool Not Detected (NotDetected); Astrovirus Not Detected (NotDetected); Campylobacter Not Detected (NotDetected); Clostridium Difficile A/B, PCR Not Detected (NotDetected); Cryptosporidium Not Detected (NotDetected); Cyclospora Cayetanesis Not Detected (NotDetected); Entamoeba histolytica Not Detected (NotDetected); Enteroaggregative E coli Not Detected (NotDetected); Enteropathogenic E coli Not Detected (NotDetected); Enterotoxigenic E coli Not Detected (NotDetected); Giardia lamblia Not Detected (NotDetected); Norovirus Not Detected (NotDetected); Plesimonas Shigalloides, PCR Not Detected (NotDetected); Rotavirus A Not Detected (NotDetected); Salmonella, PCR Not Detected (NotDetected); Sapovirus Not Detected (NotDetected); Shiga-like toxin E coli Not Detected (NotDetected); Shigella Enterovasive E coli Not Detected (NotDetected); Vibrio Cholerae Not Detected (NotDetected); Vibrio, PCR Not Detected (NotDetected); Yersinia Entercolitica, PCR Not Detected (NotDetected)
--- NOTE | 2022-03-20 14:20 | DIET.NUTRFU ---
continued to pass flatus. He also states that he had a small bowel movement . He feels a little bit better this morning . Cautious clear liquids to start with nursing, no carbonated beverages. IVF continued. Labs reviewed: Na 132L, K 3.0L. Will continue to follow diet upgrade when able to tolerate liquids will add in supplements for additional calories and protein
--- NOTE | 2022-03-20 15:20 | PC.NURSE ---
rounded on patient. offered patient a shower. he stated he didn't want to take one today maybe tomorrow educated on daily bath and prevention in health care acquired infections. after this patient agreed to take a shower today. requested more ice chips as well. no questions or concerns. encouraged him to ring out as needed
--- NOTE | 2022-03-20 17:59 | PC.NURSE ---
Addendum entered by Lorraine Alarcon RN 03/20/22 18:09: Entered via Kell Gomez Original Note: Patient able to pass gas during shift and produce a bowel movement. Diarrhea Panel obtained and sent per MD request. VS stable and patient remained on room air. Dilaudid given q4 prn for pain which patient states has been getting better each time despite constant score of 7. Abdomen soft but slightly distended. Patient offered bed at [facility] but declined and stated he wanted to stay here and see Dr. Murphy over the weekend. Dr. Tomas notified. Patient also refused to put heart monitor back on after getting a shower. Dr. Tomas notified and stated it was ok to leave pt off monitor.
[2022-03-21 04:00] VITALS: BP 113/93; PULSE 67; RESP 17; O2SAT 98
--- NOTE | 2022-03-21 04:54 | PC.NURSE ---
PT IS ALERT AND ORIENTED X4. LUNG SOUNDS ARE CLEAR BILATERALLY. TOLERATING ROOM AIR WELL. HAS C/O PAIN IN BELLY AND MEDICATED PER MAR FOR PAIN. HAS RESTED BETTER TONIGHT AND STATES THAT HIS PAIN IS SLIGHTLY BETTER. BOWEL SOUNDS REMAIN ACTIVE IN ALL 4 QUADS, ABD REMAINS TENDER AND SOFT. VSS. NO OTHER COMPLAINTS AT THIS TIME.
[2022-03-21 05:01] VITALS: BMI 16.7
--- NOTE | 2022-03-21 06:54 | PC.NURSE ---
AT 0543 CALLED FOR AN UPDATE ON PT'S TRANSFER STATUS THAT PT WOULD NO LONGER BE TRANSFERRED.
--- NOTE | 2022-03-21 07:04 | HMH.GSPN ---
Subjective Narrative: Mr. Hallman is a 56-year-old male admitted for partial small bowel obstruction. Tolerating clear liquids. Passing flatus. Reports decreasing abdominal distention. No significant complaints. Progress Note: A&P (1) Enteritis Status: Acute (2) Small bowel obstruction, partial Status: Acute (3) Protein calorie malnutrition Status: Acute (4) History of rectal cancer Status: Chronic (5) Leukocytosis Status: Acute Assessment and Plan for All Diagnoses:: 1. Partial small bowel obstruction. Resolved. Tolerating clear liquids. Advance to full liquid diet. Likely discharge later today if no difficulty this morning. [facility] at [facility] March 24 or March 31, 2022. Exam Vital signs and Labs for Last 24 Hours: Temp Pulse Resp BP Pulse Ox 98.8 F 67 17 113/93 H 98 03/20/22 20:00 03/21/22 04:00 03/21/22 04:00 03/21/22 04:00 03/21/22 04:00 Laboratory Results - last 24 hr 03/20/22 06:09: Total Counted 100, Neutrophils % (Manual) 94 H, Lymphocytes % (Manual) 4 L, Monocytes % (Manual) 2, Platelet Estimate Normal, RBC Morphology Normal 03/20/22 06:09: Magnesium 2.1 03/20/22 12:07: Stl Aeromonas (PCR) Not detected, Stl C. cayetanensis PCR Not detected, Stool Rotavirus (PCR) Not detected, Stl Adenov F 40/41 PCR Not detected, Stool Astrovirus (PCR) Not detected, Stool Campylobacter PCR Not detected, Stl C.difficile Tox PCR Not detected, Stool Cryptosporidium PCR Not detected, Stl E.coli Shiga Tox PCR Not detected, Stool E coli O157 PCR Not detected, Stl Enterotoxigenic E PCR Not detected, Stool EPEC (PCR) Not detected, Stool EAEC (PCR) Not detected, Stl E. histolytica PCR Not detected, Stool Giardia Lamblia PCR Not detected, Stool Salmonella PCR Not detected, Stool Sapovirus (PCR) Not detected, Stl P. shigelloides PCR Not detected, Stl Shigella/EIEC PCR Not detected, St Y.enterocolitica PCR Not detected, Stool Vibrio (PCR) Not detected, Stl Vibrio cholerae PCR Not detected, Stl Norovirus GI/GII PCR Not detected I & O for Last 24 hours: Intake & Output 03/18/22 03/19/22 03/20/22 03/21/22 11:59 11:59 11:59 11:59 Intake Total 135 / 135 2166 / 2166 1109 / 1109 Output Total 1125 / 1125 1600 / 1600 900 / 900 Balance -990 / -990 566 / 566 209 / 209 Weight 70.307 kg 60.441 kg 60.951 kg 61.235 kg Microbiology Reports for the Last 24 Hours: Microbiology 03/18/22 14:08 Urine,Clean Catch Urine Culture - Final NO GROWTH AFTER 48 HOURS - *Routine Abdominal Exam Comments: Soft. Nondistended. Nontender.
[2022-03-21 07:13] LABS: Chloride 97 mmol/L (98-107); Sodium 132 mmol/L (136-145)
[2022-03-21 07:14] LABS: Potassium 3.8 mmoL/L (3.5-5.1)
[2022-03-21 07:16] LABS: Alanine Aminotransferase 25 U/L (12-78); Alkaline Phosphatase 137 U/L (38-126); Anion Gap 7.8 mEq/L (5-15); Aspartate Amino Transferase 35 U/L (17-59); Bilirubin,Total 0.4 mg/dl (0.2-1.3); Blood Urea Nitrogen 30 mg/dl (9-20); Carbon Dioxide 31 mmol/L (22.0-30.0); Creatinine Clearance Estimated 66 mL/min (50-200); Estimated Glomerular Filt Rate 69 ml/min (>60); GFR (African American) 84 ML/MIN (>60)
[2022-03-21 07:17] LABS: Albumin Level 3.2 g/dl (3.5-5.0); Calcium 8.8 mg/dl (8.4-10.2); Globulin 3.1 g/dL (1.3-3.2); Glucose 106 mg/dl (74-100); Magnesium 2.1 mg/dl (1.6-2.3); Total Protein,Serum 6.3 g/dl (6.3-8.2)
[2022-03-21 07:25] LABS: Basophils % 0.2 % (0.1-2.0); Eosinophils # 0.1 K/mm3 (0.0-0.4); Eosinophils % 0.4 % (0.1-12.0); Hematocrit 33.6 % (42.0-52.0); Hemoglobin 10.7 g/dL (14.1-18.0); Lymphocytes # 0.9 K/mm3 (0.7-4.5); Lymphocytes % 5.7 % (10-50); Mean Corpuscular HGB Conc 31.9 g/dL (31.8-35.4); Mean Corpuscular Hemoglobin 32.2 pg (27.0-31.2); Mean Corpuscular Volume 101.2 fl (80-94); Mean Platelet Volume 9.4 fl (7.4-10.4); Monocytes # 1.4 K/mm3 (0.1-1.0); Monocytes % 9.1 % (1.7-9.3); Neutrophils # 13.1 K/mm3 (1.8-7.8); Neutrophils % 84.6 % (37.0-80.0); Platelet Count 367 K/mm3 (142-424); Red Blood Count 3.32 M/mm3 (4.60-6.20); Red Cell Distribution Width 13.8 % (11.5-17.5); White Blood Count 15.5 K/mm3 (4.8-10.8)
[2022-03-21 07:29] LABS: MANUAL DIFFERENTIAL MANUAL DIFFERENTIAL (MANUAL DIFF)
[2022-03-21 07:39] VITALS: BP 134/92; PULSE 51; RESP 16; TEMP 36.4; O2SAT 99
[2022-03-21 07:44] LABS: Lymphocytes % 9 % (10-50); Monocytes % 9 % (2-9); Neutrophils % 82 % (42-76); Total Cells Counted 100
[2022-03-21 07:45] LABS: Anisocytosis 1+; Hypochromasia 1+; Macrocytosis 1+; Platelet Estimate Normal
--- NOTE | 2022-03-21 08:52 | PC.NURSE ---
courtesy note; checked on pt, no requests at this time.
--- NOTE | 2022-03-21 09:02 | HMH.DCSUM ---
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 He says that over the last 3 days he is gotten progressively worsening generalized abdominal pain. He locates it throughout his entire abdomen. He says that he has also been extremely nauseous and had quite a bit of bilious emesis. He is not taking anything to manage this. Movement makes his pain worse. He says that he has only had very small liquid bowel movements once over the last 3 days. No blood. No blood in his vomit. Chest pain or shortness of breath. Above note per emergency department. Patient is here a couple of episodes of small bowel obstruction treated nonoperatively over the past couple of years. He states this feels very similar. He notes that he is had some bowel movements but feels bloated and tender and does not feel like he can eat well. Admitted to hospital for further evaluation, surgical consultation and bowel rest and IV fluids. Hospital Course Hospital Course: Patient was admitted, placed on bowel rest, IV fluids, analgesics. Stabilized, white count improved on Invanz, and he had the passage of flatus and then some small stools. Belly exam improved very slowly but this morning markedly improved. Surgery-including his surgeon from were able to see him today and recommended continuing dietary advance and discharge home today. No significant pain on exam. Plan to be discharged home, follow-up with surgery as scheduled. Short-term pain medication as noted. Objective Vital signs: Temp Pulse Resp BP Pulse Ox 97.6 F 51 L 16 134/92 H 99 03/21/22 07:39 03/21/22 07:39 03/21/22 07:39 03/21/22 07:39 03/21/22 07:39 no acute distress - *Routine HEENT Exam Head: Present: normocephalic Eye: Present: EOMI, PERRL ENT: Present: mucous membranes moist - *Routine Neck Exam Present: supple - *Routine Respiratory Exam Present: CTA bilaterally - *Routine Cardiovascular Exam Present: RRR - *Routine Abdominal Exam Present: soft, normoactive bowel sounds. Absent: tenderness - *Routine Extremities Exam Absent: cyanosis, clubbing, edema - *Routine Skin Exam Present: warm. Absent: rash - Detailed Eye Exam Eyelids: Bilateral normal inspection Results Labs on day of discharge: Labs from last 24 hours 03/21/22 03/21/22 03/20/22 06:44 06:44 12:07 WBC 15.5 H RBC 3.32 L Hgb 10.7 L Hct 33.6 L MCV 101.2 H MCH 32.2 H MCHC 31.9 RDW 13.8 Plt Count 367 MPV 9.4 Neut % (Auto) 84.6 H Lymph % (Auto) 5.7 L [place] % (Auto) 9.1 Eos % (Auto) 0.4 Baso % (Auto) 0.2 Neut # (Auto) 13.1 H Lymph # (Auto) 0.9 [place] # (Auto) 1.4 H Eos # (Auto) 0.1 Baso # (Auto) 0.0 Total Counted 100 Neutrophils % (Manual) 82 H Lymphocytes % (Manual) 9 L Monocytes % (Manual) 9 Platelet Estimate Normal Hypochromasia 1+ Anisocytosis 1+ Macrocytosis 1+ Sodium 132 L Potassium 3.8 Chloride 97 L Carbon Dioxide 31 H Anion Gap 7.8 BUN 30 H Creatinine 1.10 Estimated Creat Clear 66 Estimated GFR 69 Est GFR ( Amer) 84 Glucose 106 H Calcium 8.8 Magnesium 2.1 Total Bilirubin 0.4 AST 35 ALT 25 Alkaline Phosphatase 137 H Total Protein 6.3 Albumin 3.2 L Globulin 3.1 Albumin/Globulin Ratio 1.0 L Stl Aeromonas (PCR) Not detected Stl C. cayetanensis PCR Not detected Stool Rotavirus (PCR) Not detected Stl Adenov F 40/41 PCR Not detected Stool Astrovirus (PCR) Not detected Stool Campylobacter PCR Not detected Stl C.difficile Tox PCR
--- NOTE | 2022-03-21 09:51 | PC.NURSE ---
pt has been discahrged from the facility. He will make follow up appt with surgeon who he sees on a regular basis. IV discontinued. pt ambulated independently
--- NOTE | 2022-03-24 14:47 | CARE MANAGER ---
Mr. Hallman returned our call this morning in regards to VM he received yesterday to discuss post discharge status. Patient states that he is doing well and has no known needs at this time.
== END 2022-03-21 09:51 | disposition home or self-care (01) | DRG 389 ==
LOC: ER 12:23 → 2ND 03-19 00:43
PROVIDERS: Internal Medicine Adolescent Medicine; Admitting Provider Internal Medicine Adolescent Medicine; Emergency Provider Student in an Organized Health Care Education/Training Program; Visit Provider Internal Medicine Adolescent Medicine
DX: K56.600 Partial intestinal obstruction, unspecified as to cause (principal); E46 Unspecified protein-calorie malnutrition; Z68.1 Body mass index [BMI] 19.9 or less, adult; F17.210 Nicotine dependence, cigarettes, uncomplicated; K52.9 Noninfective gastroenteritis and colitis, unspecified; Z85.048 Personal history of other malignant neoplasm of rectum, rectosigmoid junction, and anus
CPT/HCPCS: 36415; 74021; 74177; 80053; 81001; 83605; 83690; 83735; 84484; 85007; 85025; 86140; 87086; 87507; 93005; C9803; G0378; J1335; J2405; Q9967; U0003; U0005

== ENCOUNTER 2022-04-01 10:40 | Observation (INO) | payer MEDICARE, MEDICAID, SELFPAY ==
[2022-04-01] VITALS (14 sets, daily range): BP systolic 96–122; BP diastolic 63–77; PULSE 51–67; RESP 16–20; TEMP 36.7–37.3; O2SAT 96–100; BMI 16.2; BMI 16.5
--- NOTE | 2022-04-01 11:15 | CT_ITS ---
FINAL REPORT TECHNIQUE: After the administration of intravenous contrast, axial images were obtained through the abdomen and pelvis by computed tomography. The study was performed with techniques to keep radiation dose as low as reasonably achievable, (ALARA). Individual dose reduction techniques using automated exposure control or adjustment of mA and/or kV according to the patient's size were employed. CLINICAL HISTORY: previous colorectal cancer s/p resection, abd pain COMPARISON: 03/18/2022 FINDINGS: Abdomen: The lung bases are clear. The liver is normal in size and attenuation. The gallbladder is collapsed with wall thickening as a nonspecific finding. 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 The adrenals are normal. The pancreas is unremarkable. The kidneys enhance appropriately. There is mild right and moderate to severe left hydronephrosis and hydroureter. The aorta is normal in caliber. There is no free fluid or adenopathy. Again identified are multiple thickened small bowel loops in the mid abdomen, likely inflammatory. There is persistent air and fluid-filled bowel loops, may represent an ileus or partial small bowel obstruction. There is persistent significant thickening of the distal sigmoid colon and rectum, may represent postoperative changes versus neoplastic involvement. Pelvis: The appendix is not identified. There is persistent bladder wall thickening, likely inflammatory. There is no free fluid or adenopathy. IMPRESSION: Abnormal appearance of the bladder, stable since prior. Ileus versus partial small bowel obstruction. Widespread small bowel wall thickening, stable and likely inflammatory. Stable thickening of the rectosigmoid colon. Bilateral hydronephrosis and hydroureter, slightly worse on the right and stable on the left. Reviewed, Interpreted and Dictated by Romario Maciel III, MD Transcribed by Amy Blunt Authenticated and [facility]
--- NOTE | 2022-04-01 11:16 | HMH.EDGENADL ---
Discharge Plan Disposition Patient Disposition: Admitted As Inpatient Chief Complaint: Abdominal Pain Clinical Impressions Clinical Impression: Partial small bowel obstruction Discharge ED Provider: Matt Carlin General Adult HPI General Chief complaint: Abdominal Pain Stated complaint: v/d Time Seen by Provider: 04/01/22 11:16 History of Present Illness HPI narrative: Patient is a 56-year-old male past medical history of colorectal cancer status postresection a few years ago who presents emergency department for evaluation of abdominal pain and diarrhea. Patient states he has had waxing and waning abdominal pain over the last 2 weeks which has became acutely worse over the last 24 hours. Associated nonbloody vomiting, nonbloody diarrhea. Pain is moderate to severe in intensity, there is associated decreased p.o. intake. Patient denies chest pain, cough, shortness of breath, other acute complaints at this time. Related Data Home Medications Medication Instructions Recorded Confirmed duloxetine 60 mg capsule,delayed 60 mg PO DAILY mood 03/18/22 04/01/22 release pregabalin 100 mg capsule 100 mg PO BID neuropathy 03/18/22 04/01/22 Previous Rx's Medication Instructions Recorded oxycodone 5 mg tablet 5 mg PO BIDP PRN Severe Pain #10 03/21/22 tabs Allergies Allergy/AdvReac Type Severity Reaction Status Date / Time cephalexin Allergy Mild Rash Verified 01/05/22 10:31 morphine Allergy Vomiting Verified 03/18/22 09:35 acetaminophen [From Tylenol] AdvReac Mild Nausea Verified 01/05/22 10:31 PFSH PFSH Medical History Anxiety Colon cancer Depression Small bowel obstruction Family History (Updated 04/01/22 @ 17:14 by Kacey Harding RN) Other No significant family history Social History (Updated 04/01/22 @ 17:15 by Kacey Harding RN) Smoking Status: Current some day smoker tobacco type: cigarettes packs per day: 1 second hand exposure: Yes alcohol intake: never substance use type: denies use current occupational status: other Travel in the last 8 weeks: None household members: family and children housing: house caffeine: No ROS Obtained: Yes All systems reviewed & no additional complaints except as documented Physical Exam General General appearance: alert Comment: Appearing in pain lying in bed Head Head exam: atraumatic and normocephalic Eye Eye exam: Present PERRL and EOMI ENT ENT exam: Present mucous membranes moist Neck Neck exam: Present normal inspection Chest Chest inspection: Present normal inspection and symmetric chest wall rise Respiratory Respiratory exam: Present normal lung sounds bilaterally; Absent respiratory distress Cardiovascular Cardiovascular exam: Present regular rate and normal rhythm Abdominal Exam Abdominal exam: Present soft and tenderness (Bilateral lower quadrants) Extremities Exam Extremities exam: Present normal inspection Neurological Exam Neurological exam: Present alert and oriented X3 Psychiatric Psychiatric exam: Present normal affect Skin Skin exam: Present warm and dry Medical Decision Making Ty Inquiry Pt receiving controlled substance: No Vital Signs: 04/01/22 10:50 04/01/22 12:59 04/01/22 11:30 Temperature 99.1 F Temperature Source Oral Pulse Rate 51 L 63 Pulse Rate [Left Radial] 67 Respiratory Rate 18 16 17 Blood Pressure 119/76 110/74 Blood Pressure [Right Arm] 115/77 Blood Pressure Mean 86 Blood Pressure Mean [Right Arm] 89 Blood Pressure Source [Right Arm] Blood Pressure Position Sitting Blood Pressure Position [Right Arm] 02 Sat by Pulse Oximetry 100 99 97 Oxygen Delivery Method Room Air 04/01/22 11:54 04/01/22 11:57 04/01/22 12:00 Temperature Temperature Source Pulse Rate 62 60 60 Pulse Rate [Left Radial] Respiratory Rate 16 17 17 Blood Pressure 96/70 L 105/70 L 107/70 L Blood P
[2022-04-01 12:24] LABS: Alanine Aminotransferase 20 U/L (12-78); Albumin Level 3.3 g/dl (3.5-5.0); Alkaline Phosphatase 113 U/L (38-126); Anion Gap 10.4 mEq/L (5-15); Aspartate Amino Transferase 19 U/L (17-59); Blood Urea Nitrogen 58 mg/dl (9-20); Calcium 8.7 mg/dl (8.4-10.2); Carbon Dioxide 37 mmol/L (22.0-30.0); Chloride 88 mmol/L (98-107); Creatinine Clearance Estimated 46 mL/min (50-200); Estimated Glomerular Filt Rate 49 ml/min (>60); GFR (African American) 59 ML/MIN (>60); Globulin 3.3 g/dL (1.3-3.2); Glucose 127 mg/dl (74-100); Lipase 117 U/L (23-300); Potassium 3.4 mmoL/L (3.5-5.1); Sodium 132 mmol/L (136-145); Total Protein,Serum 6.6 g/dl (6.3-8.2)
[2022-04-01 12:25] LABS: Bilirubin,Total < 0.1 mg/dl (0.2-1.3)
[2022-04-01 12:26] LABS: Basophils % 0.7 % (0.1-2.0); Eosinophils % 0.4 % (0.1-12.0); Hematocrit 35.5 % (42.0-52.0); Hemoglobin 11.2 g/dL (14.1-18.0); Lymphocytes # 0.6 K/mm3 (0.7-4.5); Mean Corpuscular HGB Conc 31.7 g/dL (31.8-35.4); Mean Corpuscular Hemoglobin 32.2 pg (27.0-31.2); Mean Corpuscular Volume 101.6 fl (80-94); Monocytes # 0.5 K/mm3 (0.1-1.0); Monocytes % 9.7 % (1.7-9.3); Neutrophils # 3.7 K/mm3 (1.8-7.8); Neutrophils % 77.2 % (37.0-80.0); Red Blood Count 3.49 M/mm3 (4.60-6.20); Red Cell Distribution Width 13.5 % (11.5-17.5); White Blood Count 4.8 K/mm3 (4.8-10.8)
--- NOTE | 2022-04-01 12:31 | PC.NURSE ---
rounded on pt room and pt asked for a blanket. retrieved the warm blanket for him asked if he needed anything else... he advised the pain was coming back wanted to see if he could have some more pain medicine.. Advise the pt i would ask the ER doctor and get back with him
[2022-04-01 12:33] LABS: Platelet Count 1045 K/mm3 (142-424)
--- NOTE | 2022-04-01 12:33 | PC.NURSE ---
spoke with the ER doctor and and he advised that the pt could have some more pain medication
--- NOTE | 2022-04-01 14:02 | PC.NURSE ---
waiting manager web application back from dr. youssef office staff states he is in room with a pt
--- NOTE | 2022-04-01 14:08 | PC.NURSE ---
unable to urinate at this time
--- NOTE | 2022-04-01 14:41 | PC.NURSE ---
MD at bedside. VO order given for pain meds. Entered order at this time.
--- NOTE | 2022-04-01 14:50 | PC.NURSE ---
UA collected on patient; he was repositioned and covered back up with his blankets; call light given to him; he denies any other needs at this time;
--- NOTE | 2022-04-01 14:51 | PC.NURSE ---
UA obtained and sent to the lab
[2022-04-01 15:13] LABS: Coronavirus 19, PCR Not Detected (NotDetected); Influenza A, PCR Not Detected (NotDetected); Influenza B, PCR Not Detected (NotDetected); Microscopic, Urine URINE MICROSCOPIC (MICROSCOPIC)
[2022-04-01 15:20] LABS: Appearance,Urine CLEAR (Clear); Bilirubin,Urine Negative (Negative); Blood, Urine Negative (Negative); Color,Urine YELLOW (Yellow); Glucose,Urine (UA) Negative (Negative); Ketones,Urine Negative (Negative); Leukocyte Esterase,Urine Negative (Negative); Nitrate,Urine Negative (Negative); PH,Urine 6.5 (5.0-8.5); Protein,Urine TRACE (Negative); Urobilinogen,Urine 0.2 EU/dl (0.2)
--- NOTE | 2022-04-01 15:34 | PC.NURSE ---
called [facility] back and asked them again about speaking to the surgeon about the transfer. lady i spoke to said that they had had several traumas come in and we should be getting ready to be called in the next few minutes.
[2022-04-01 15:42] LABS: Bacteria,Urine Trace /lpf; Squamous Epithelial Cell,Urine Occasional #/hpf (0-5); WBC,Urine Occasional #/hpf (0-3)
--- NOTE | 2022-04-01 16:00 | PC.NURSE ---
talking with [facility]
--- NOTE | 2022-04-01 17:49 | PC.NURSE ---
Dr Mcfarlane at the bedside
--- NOTE | 2022-04-01 17:56 | EXP.SURG.CON ---
History of Present Illness *Admission Date: 04/01/22 *Reason for visit:: Abdominal pain *History of present illness: This is a 56-year-old gentleman seen in consultation from the service of Dr. Woodward after evaluation in the emergency department for abdominal pain and likely bowel obstruction. He was recently hospitalized for similar symptoms and surgical consultation was obtained. Please see truncated note from March 18 consultation forwarded below. The patient was discharged on March 21 and did follow-up yesterday with Dr. Mayo Colindres of the colorectal service at the [facility]. The patient states that he was told yesterday by Dr. Colindres that surgery at some point in the near future will likely be necessary. After evaluation yesterday, developed increasing abdominal pain, diarrhea, and nausea/vomiting. He presented to the emergency department today. Efforts to transfer to the [facility] for further evaluation and management by Dr. Colindres were made. Secondary to lack of bed availability, he was admitted to this facility with plans to transfer if/when bed availability improves. Currently, he states that he feels a little bit better . He states that his symptoms are just about exactly like last time . Impression from CT scan during this evaluation shows the following: Abnormal appearance of the bladder, stable since prior.? ? Ileusversus partial small bowel obstruction.? ? Widespread small bowel wall thickening, stable and likely inflammatory.? ? Stable thickening of the ectosigmoid colon.? Bilateral hydronephrosis and hydroureter, slightly worse on the right and stable on the left. Forwarded from consultation on March 18: HPI: This is a 56-year-old gentleman seen in consultation from Dr. Woodward for evaluation regarding enteritis with concomitant partial bowel obstruction.? Please see HPI forwarded from emergency department evaluation below.? He has required admission on 2 separate occasions for similar symptoms.? On one occasion he was treated nonoperatively at this facility.? On a separate occasion he was transferred to the [facility] and ultimately treated nonoperatively.? He states the only difference is that the pain is a little worse this time . Assessment and Plan (1) Enteritis Status:?Acute ??Category:?Medical ??Code(s):?K52.9 - Noninfective gastroenteritis and colitis, unspecified ? (2) Small bowel obstruction, partial Status:?Acute ??Category:?Medical ??Code(s):?K56.600 - Partial intestinal obstruction, unspecified as to cause ? Complex recurrent partial obstruction versus enteritis with ileus in a patient that is status post extensive intra-abdominal surgery for advanced rectal cancer.? Above surgical intervention has all been completed at the [facility].? He has had 2 separate occasions of similar symptoms in the past few years; however, the degree of pain is greater on this occasion.? Physical exam findings are concerning for developing peritonitis.? I discussed the risks and benefits of surgical exploration.? I have also discussed the risks and benefits of further evaluation (small bowel follow-through, repeat CT with additional contrast, etc.).? The patient wishes to forego intervention or further studies at this time.? He remains hopeful that his symptoms will resolve like they did the last two times .? He remains agreeable to transfer to the [facility] for further evaluation and management. PFSH PFSH Medical History Anxiety Colon cancer Depression Small bowel obstruction Family History (Updated 04/01/22 @ 17:14 by Kacey Harding RN) No significant family history Social History (Updated 04/01/22 @ 17:15 by Donte
--- NOTE | 2022-04-01 18:24 | PC.NURSE ---
REPORT CALLED TO MANI ROD RN
--- NOTE | 2022-04-01 18:36 | PC.NURSE ---
patient arrived to floor by wheelchair from ED
--- NOTE | 2022-04-02 03:40 | PC.NURSE ---
Pt has c/o abdominal discomfort t/o shift requiring frequent pain medication. States his mouth is dry. Oral swabs provided. No other complaints stated. VSS. Pt remains on RA. He has voided in urinal. No BM this shift. Call light within reach. Spoke with [facility]. No bed available at this time.
[2022-04-02 04:00] VITALS: BP 116/71; PULSE 50; RESP 16; TEMP 36.8; O2SAT 100
[2022-04-02 04:41] VITALS: BMI 16.5
--- NOTE | 2022-04-02 07:29 | EXP.PHA.VTE ---
[facility] Pharmacy VTE Monitoring Patient Demographics Admission date: 04/01/22 Report Date: 04/02/22 Time: 07:29 Patient Allergies cephalexin Allergy (Mild, Verified 01/05/22 10:31) Rash morphine Allergy (Verified 03/18/22 09:35) Vomiting acetaminophen [From Tylenol] Adverse Reaction (Mild, Verified 01/05/22 10:31) Nausea Height: 1.91 m Weight: 60.102 kg Current Active Problems (Updated 04/01/22 @ 18:57 by Matt Carlin MD) Small bowel obstruction, partial (Acute) Partial small bowel obstruction (Acute) Enteritis (Acute) VTE Risk Labs: VTE Related Lab Results Hgb 11.2 g/dL (14.1-18.0) L 04/01/22 12:00 Hct 35.5 % (42.0-52.0) L 04/01/22 12:00 Plt Count 1045 K/mm3 (142-424) H* 04/01/22 12:00 BUN 58 mg/dl (9-20) H 04/01/22 12:00 Creatinine 1.50 mg/dl (0.66-1.25) H 04/01/22 12:00 Estimated Creat Clear 46 mL/min (50-200) 04/01/22 12:00 Was VTE Risk Assessment Performed: Yes VTE Score: 5 VTE Risk Level: Low Risk Prophylaxis VTE Prophylaxis Ordered?: Yes Types of VTE Prophylaxis: TEDS Knee High
--- NOTE | 2022-04-02 07:31 | HMH.PHAINT1 ---
Pharmacy Intervention Comments: HOME MEDICATION LIST VERIFIED USING A LIST FROM CLINIC PHARMACY
[2022-04-02 07:39] LABS: Basophils % 0.7 % (0.1-2.0); Eosinophils # 0.2 K/mm3 (0.0-0.4); Eosinophils % 3.5 % (0.1-12.0); Lymphocytes # 0.5 K/mm3 (0.7-4.5); Lymphocytes % 12.7 % (10-50); Mean Corpuscular HGB Conc 31.8 g/dL (31.8-35.4); Mean Corpuscular Hemoglobin 32.2 pg (27.0-31.2); Mean Corpuscular Volume 101.3 fl (80-94); Mean Platelet Volume 8.4 fl (7.4-10.4); Monocytes # 0.5 K/mm3 (0.1-1.0); Monocytes % 12.2 % (1.7-9.3); Neutrophils % 70.9 % (37.0-80.0); Platelet Count 843 K/mm3 (142-424); Red Blood Count 2.97 M/mm3 (4.60-6.20); Red Cell Distribution Width 13.3 % (11.5-17.5); White Blood Count 4.3 K/mm3 (4.8-10.8)
[2022-04-02 07:48] LABS: Anion Gap 9.5 mEq/L (5-15); Blood Urea Nitrogen 37 mg/dl (9-20); Calcium 8.2 mg/dl (8.4-10.2); Carbon Dioxide 30 mmol/L (22.0-30.0); Chloride 98 mmol/L (98-107); Creatinine Clearance Estimated 55 mL/min (50-200); Estimated Glomerular Filt Rate 57 ml/min (>60); GFR (African American) 69 ML/MIN (>60); Glucose 88 mg/dl (74-100); Potassium 3.5 mmoL/L (3.5-5.1); Sodium 134 mmol/L (136-145)
[2022-04-02 07:57] LABS: Hemoglobin 9.6 g/dL (14.1-18.0)
[2022-04-02 08:00] VITALS: BP 104/65; PULSE 53; RESP 16; TEMP 36.4; O2SAT 96
--- NOTE | 2022-04-02 08:15 | EXP.HP ---
History of Present Illness *Admission Date: 04/01/22 *Reason for visit:: Abdominal pain *History of present illness: This is a 56-year-old gentleman seen in consultation from the service of Dr. Woodward after evaluation in the emergency department for abdominal pain and likely bowel obstruction. He was recently hospitalized for similar symptoms and surgical consultation was obtained. Please see truncated note from March 18 consultation forwarded below. The patient was discharged on March 21 and did follow-up yesterday with Dr. Mayo Colindres of the colorectal service at the [facility]. The patient states that he was told yesterday by Dr. Colindres that surgery at some point in the near future will likely be necessary. After evaluation yesterday, developed increasing abdominal pain, diarrhea, and nausea/vomiting. He presented to the emergency department today. Efforts to transfer to the [facility] for further evaluation and management by Dr. Colindres were made. Secondary to lack of bed availability, he was admitted to this facility with plans to transfer if/when bed availability improves. Currently, he states that he feels a little bit better . He states that his symptoms are just about exactly like last time . Impression from CT scan during this evaluation shows the following: Abnormal appearance of the bladder, stable since prior.? ? Ileusversus partial small bowel obstruction.? ? Widespread small bowel wall thickening, stable and likely inflammatory.? ? Stable thickening of the ectosigmoid colon.? Bilateral hydronephrosis and hydroureter, slightly worse on the right and stable on the left. Forwarded from consultation on March 18: HPI: This is a 56-year-old gentleman seen in consultation from Dr. Woodward for evaluation regarding enteritis with concomitant partial bowel obstruction.? Please see HPI forwarded from emergency department evaluation below.? He has required admission on 2 separate occasions for similar symptoms.? On one occasion he was treated nonoperatively at this facility.? On a separate occasion he was transferred to the [facility] and ultimately treated nonoperatively.? He states the only difference is that the pain is a little worse this time . Assessment and Plan (1) Enteritis Status:?Acute ??Category:?Medical ??Code(s):?K52.9 - Noninfective gastroenteritis and colitis, unspecified ? (2) Small bowel obstruction, partial Status:?Acute ??Category:?Medical ??Code(s):?K56.600 - Partial intestinal obstruction, unspecified as to cause ? Complex recurrent partial obstruction versus enteritis with ileus in a patient that is status post extensive intra-abdominal surgery for advanced rectal cancer.? Above surgical intervention has all been completed at the [facility].? He has had 2 separate occasions of similar symptoms in the past few years; however, the degree of pain is greater on this occasion.? Physical exam findings are concerning for developing peritonitis.? I discussed the risks and benefits of surgical exploration.? I have also discussed the risks and benefits of further evaluation (small bowel follow-through, repeat CT with additional contrast, etc.).? The patient wishes to forego intervention or further studies at this time.? He remains hopeful that his symptoms will resolve like they did the last two times .? He remains agreeable to transfer to the [facility] for further evaluation and management. Above note per surgical consultation. This morning on rounds the patient feels about the same. Notes that he feels a little better than last time. [facility] Medical History Anxiety Colon cancer Depression Small bowel obstruction
--- NOTE | 2022-04-02 09:09 | DIET.NUTRFU ---
Patient continues to trigger for severe PCM d/t multiple GI issues effecting PO intake. Patient was just here 03/19 and reported 11# in 2months. CBW is 60kg and wt last admit was 63kg. Patient is current NPO. Follows colorectal service at the [facility], plans to transfer when bed available. When diet advanced will look to add supplements to help meet nutritional needs with minimal intake.
--- NOTE | 2022-04-02 10:42 | EXP.SURG.PN ---
Subjective Patient reports: no new complaints Exam Data for Last 24 hours Vital signs and Labs for Last 24 Hours: Temp Pulse Resp BP Pulse Ox 97.6 F 53 L 16 104/65 L 96 04/02/22 08:00 04/02/22 08:00 04/02/22 08:00 04/02/22 08:00 04/02/22 08:00 Laboratory Results - last 24 hr 04/01/22 12:00: WBC 4.8, RBC 3.49 L, Hgb 11.2 L, Hct 35.5 L, MCV 101.6 H, MCH 32.2 H, MCHC 31.7 L, RDW 13.5, Plt Count 1045 H*, MPV 8.0, Neut % (Auto) 77.2, Lymph % (Auto) 12.0, [place] % (Auto) 9.7 H, Eos % (Auto) 0.4, Baso % (Auto) 0.7, Neut # (Auto) 3.7, Lymph # (Auto) 0.6 L, [place] # (Auto) 0.5, Eos # (Auto) 0.0, Baso # (Auto) 0.0 04/01/22 12:00: Sodium 132 L, Potassium 3.4 L, Chloride 88 L, Carbon Dioxide 37 H, Anion Gap 10.4, BUN 58 H, Creatinine 1.50 H, Estimated Creat Clear 46, Estimated GFR 49 L, Est GFR ( Amer) 59, Glucose 127 H, Calcium 8.7, Total Bilirubin < 0.1 L, AST 19, ALT 20, Alkaline Phosphatase 113, Total Protein 6.6, Albumin 3.3 L, Globulin 3.3 H, Albumin/Globulin Ratio 1.0 L, Lipase 117 04/01/22 12:00: Lactate 1.0 04/01/22 14:50: Urine Color Yellow, Urine Appearance Clear, Urine pH 6.5, Ur Specific [place] 1.010, Urine Protein Trace, Urine Glucose (UA) Negative, Urine Ketones Negative, Urine Blood Negative, Urine Nitrate Negative, Urine Bilirubin Negative, Urine Urobilinogen 0.2, Ur Leukocyte Esterase Negative, Urine RBC None, Urine WBC Occasional, Ur Squamous Epith Cells Occasional, Urine Bacteria Trace 04/01/22 14:50: SARS-CoV-2 (PCR) Not detected, Influenza A Untype (PCR) Not detected, Influenza Type B (PCR) Not detected 04/02/22 06:30: WBC 4.3 L, RBC 2.97 L, Hgb 9.6 L D, Hct 30.0 L, MCV 101.3 H, MCH 32.2 H, MCHC 31.8, RDW 13.3, Plt Count 843 H, MPV 8.4, Neut % (Auto) 70.9, Lymph % (Auto) 12.7, [place] % (Auto) 12.2 H, Eos % (Auto) 3.5, Baso % (Auto) 0.7, Neut # (Auto) 3.0, Lymph # (Auto) 0.5 L, [place] # (Auto) 0.5, Eos # (Auto) 0.2, Baso # (Auto) 0.0 04/02/22 06:30: Sodium 134 L, Potassium 3.5, Chloride 98, Carbon Dioxide 30, Anion Gap 9.5, BUN 37 H D, Creatinine 1.30 H, Estimated Creat Clear 55, Estimated GFR 57 L, Est GFR ( Amer) 69, Glucose 88 D, Calcium 8.2 L I & O for Last 24 hours: Intake & Output 03/30/22 03/31/22 04/01/22 04/02/22 11:59 11:59 11:59 11:59 Intake Total 1482 / 1482 Output Total 800 / 800 Balance 682 / 682 Weight 130 lb 132 lb 8.036 oz *Routine Abdominal Exam Abdominal: Present soft Comments: Extensive surgical scars. Abdomen nondistended. Mild tenderness. Progress Note: A&P Assessment and plan (1) SBO (small bowel obstruction): Problem details: Continue n.p.o. status. Awaiting transfer Status: Resolved (2) History of rectal cancer: Status: Chronic
--- NOTE | 2022-04-02 11:14 | PC.NURSE ---
updated [facility] on pt condition still no bed available.
[2022-04-02 14:07] VITALS: BMI 16.6
[2022-04-02 16:00] VITALS: BP 139/47; PULSE 53; RESP 16; TEMP 36.7; O2SAT 97
--- NOTE | 2022-04-02 17:39 | PC.NURSE ---
no acute changes. pt is aox4, does not require o2 support. c/o abd pain medicated with prn dilaudid q2hrs per pt request.
[2022-04-02 20:00] VITALS: BP 123/73; PULSE 53; RESP 16; TEMP 36.7; O2SAT 99
--- NOTE | 2022-04-03 01:28 | PC.NURSE ---
Updated [facility] on patient status. Still no bed at this time.
[2022-04-03 04:00] VITALS: BP 116/69; PULSE 64; RESP 16; TEMP 36.6; O2SAT 93
[2022-04-03 05:00] VITALS: BMI 16.6
--- NOTE | 2022-04-03 05:55 | PC.NURSE ---
Pt has c/o abdominal discomfort t/o shift requiring frequent pain medication. VSS. Pt remains on RA. He has voided in urinal. No BM this shift but does report increase flatus.
[2022-04-03 06:56] LABS: Basophils # 0.1 K/mm3 (0-0.2); Basophils % 0.9 % (0.1-2.0); Eosinophils # 0.2 K/mm3 (0.0-0.4); Eosinophils % 3.1 % (0.1-12.0); Hemoglobin 9.8 g/dL (14.1-18.0); Lymphocytes # 0.7 K/mm3 (0.7-4.5); Lymphocytes % 12.7 % (10-50); Mean Corpuscular HGB Conc 30.6 g/dL (31.8-35.4); Mean Corpuscular Hemoglobin 32.1 pg (27.0-31.2); Mean Platelet Volume 8.4 fl (7.4-10.4); Monocytes # 0.6 K/mm3 (0.1-1.0); Monocytes % 11.3 % (1.7-9.3); Neutrophils # 3.9 K/mm3 (1.8-7.8); Platelet Count 773 K/mm3 (142-424); Red Blood Count 3.05 M/mm3 (4.60-6.20); Red Cell Distribution Width 13.6 % (11.5-17.5); White Blood Count 5.4 K/mm3 (4.8-10.8)
[2022-04-03 07:23] LABS: Chloride 97 mmol/L (98-107); Potassium 3.7 mmoL/L (3.5-5.1); Sodium 134 mmol/L (136-145)
[2022-04-03 07:26] LABS: Anion Gap 13.7 mEq/L (5-15); Blood Urea Nitrogen 35 mg/dl (9-20); Carbon Dioxide 27 mmol/L (22.0-30.0); Creatinine Clearance Estimated 65 mL/min (50-200); Estimated Glomerular Filt Rate 69 ml/min (>60); GFR (African American) 84 ML/MIN (>60)
[2022-04-03 07:27] LABS: Calcium 8.2 mg/dl (8.4-10.2); Glucose 73 mg/dl (74-100)
[2022-04-03 08:00] VITALS: BP 124/70; PULSE 50; RESP 16; TEMP 36.8; O2SAT 97
--- NOTE | 2022-04-03 08:18 | P.PN_ITS ---
Subjective *Date: 04/03/22 *Time: 08:18 Medical Exam Vital signs and Labs for Last 24 Hours: Temp Pulse Resp BP Pulse Ox 98.3 F 50 L 16 124/70 97 04/03/22 08:00 04/03/22 08:00 04/03/22 08:00 04/03/22 08:00 04/03/22 08:00 Laboratory Results - last 24 hr 04/03/22 05:55: WBC 5.4 D, RBC 3.05 L, Hgb 9.8 L, Hct 32.0 L, MCV 105.0 H, MCH 32.1 H, MCHC 30.6 L, RDW 13.6, Plt Count 773 H, MPV 8.4, Neut % (Auto) 72.0, Lymph % (Auto) 12.7, [place] % (Auto) 11.3 H, Eos % (Auto) 3.1, Baso % (Auto) 0.9, Neut # (Auto) 3.9, Lymph # (Auto) 0.7, [place] # (Auto) 0.6, Eos # (Auto) 0.2, Baso # (Auto) 0.1 04/03/22 05:55: Sodium 134 L, Potassium 3.7, Chloride 97 L, Carbon Dioxide 27, Anion Gap 13.7, BUN 35 H, Creatinine 1.10, Estimated Creat Clear 65, Estimated GFR 69, Est GFR ( Amer) 84 D, Glucose 73 L, Calcium 8.2 L I & O for Labs for Last 24 Hours: Intake & Output 03/31/22 04/01/22 04/02/22 04/03/22 23:59 23:59 23:59 23:59 Intake Total 2907 / 2907 1500 / 1500 Output Total 400 / 400 1200 / 1200 500 / 500 Balance -400 / -400 1707 / 1707 1000 / 1000 Weight 60.016 kg 60.1 kg 60.1 kg
--- NOTE | 2022-04-03 08:40 | EXP.SURG.PN ---
Subjective Narrative: Patient states that he feels somewhat better. He did have a bowel movement and is passing gas. Exam Data for Last 24 hours Vital signs and Labs for Last 24 Hours: Temp Pulse Resp BP Pulse Ox 98.3 F 50 L 16 124/70 97 04/03/22 08:00 04/03/22 08:00 04/03/22 08:00 04/03/22 08:00 04/03/22 08:00 Laboratory Results - last 24 hr 04/03/22 05:55: WBC 5.4 D, RBC 3.05 L, Hgb 9.8 L, Hct 32.0 L, MCV 105.0 H, MCH 32.1 H, MCHC 30.6 L, RDW 13.6, Plt Count 773 H, MPV 8.4, Neut % (Auto) 72.0, Lymph % (Auto) 12.7, [place] % (Auto) 11.3 H, Eos % (Auto) 3.1, Baso % (Auto) 0.9, Neut # (Auto) 3.9, Lymph # (Auto) 0.7, [place] # (Auto) 0.6, Eos # (Auto) 0.2, Baso # (Auto) 0.1 04/03/22 05:55: Sodium 134 L, Potassium 3.7, Chloride 97 L, Carbon Dioxide 27, Anion Gap 13.7, BUN 35 H, Creatinine 1.10, Estimated Creat Clear 65, Estimated GFR 69, Est GFR ( Amer) 84 D, Glucose 73 L, Calcium 8.2 L I & O for Last 24 hours: Intake & Output 03/31/22 04/01/22 04/02/22 04/03/22 11:59 11:59 11:59 11:59 Intake Total 1482 / 1482 2925 / 2925 Output Total 800 / 800 1300 / 1300 Balance 682 / 682 1625 / 1625 Weight 130 lb 132 lb 8.036 oz 132 lb 7.965 oz *Routine Abdominal Exam Abdominal: Present soft and normoactive bowel sounds Progress Note: A&P Assessment and plan (1) SBO (small bowel obstruction): Problem details: Slowly advance diet Status: Resolved (2) History of rectal cancer: Status: Chronic
--- NOTE | 2022-04-03 12:24 | EXP.DC.SUM ---
General Admission date:: 04/01/22 Discharge date: 04/03/22 HPI HPI HPI: This is a 56-year-old gentleman seen in consultation from the service of Dr. Woodward after evaluation in the emergency department for abdominal pain and likely bowel obstruction. He was recently hospitalized for similar symptoms and surgical consultation was obtained. Please see truncated note from March 18 consultation forwarded below. The patient was discharged on March 21 and did follow-up yesterday with Dr. Mayo Colindres of the colorectal service at the [facility]. The patient states that he was told yesterday by Dr. Colindres that surgery at some point in the near future will likely be necessary. After evaluation yesterday, developed increasing abdominal pain, diarrhea, and nausea/vomiting. He presented to the emergency department today. Efforts to transfer to the [facility] for further evaluation and management by Dr. Colindres were made. Secondary to lack of bed availability, he was admitted to this facility with plans to transfer if/when bed availability improves. Currently, he states that he feels a little bit better . He states that his symptoms are just about exactly like last time . Impression from CT scan during this evaluation shows the following: Abnormal appearance of the bladder, stable since prior.? ? Ileusversus partial small bowel obstruction.? ? Widespread small bowel wall thickening, stable and likely inflammatory.? ? Stable thickening of the ectosigmoid colon.? Bilateral hydronephrosis and hydroureter, slightly worse on the right and stable on the left. Forwarded from consultation on March 18: HPI: This is a 56-year-old gentleman seen in consultation from Dr. Woodward for evaluation regarding enteritis with concomitant partial bowel obstruction.? Please see HPI forwarded from emergency department evaluation below.? He has required admission on 2 separate occasions for similar symptoms.? On one occasion he was treated nonoperatively at this facility.? On a separate occasion he was transferred to the [facility] and ultimately treated nonoperatively.? He states the only difference is that the pain is a little worse this time . Assessment and Plan (1) Enteritis Status:?Acute ??Category:?Medical ??Code(s):?K52.9 - Noninfective gastroenteritis and colitis, unspecified ? (2) Small bowel obstruction, partial Status:?Acute ??Category:?Medical ??Code(s):?K56.600 - Partial intestinal obstruction, unspecified as to cause ? Complex recurrent partial obstruction versus enteritis with ileus in a patient that is status post extensive intra-abdominal surgery for advanced rectal cancer.? Above surgical intervention has all been completed at the [facility].? He has had 2 separate occasions of similar symptoms in the past few years; however, the degree of pain is greater on this occasion.? Physical exam findings are concerning for developing peritonitis.? I discussed the risks and benefits of surgical exploration.? I have also discussed the risks and benefits of further evaluation (small bowel follow-through, repeat CT with additional contrast, etc.).? The patient wishes to forego intervention or further studies at this time.? He remains hopeful that his symptoms will resolve like they did the last two times .? He remains agreeable to transfer to the [facility] for further evaluation and management. Above note per surgical consultation. This morning on rounds the patient feels about the same. Notes that he feels a little better than last time. Hospital Course Hospital Course Hospital Course: Admitted for small bowel obstruction. P.o. intake was held. Pain medication administered due to significant abdominal pain.
--- NOTE | 2022-04-03 13:01 | PC.NURSE ---
Addendum entered by Nory Cary RN 04/03/22 13:08: PT WILL FOLLOW UP WITH 04/13. Original Note: PT REQUESTED THIS MORNING TO BE DISCHARGED. HE HAS TOLERATED CLEAR LIQUIDS AND HAD A LARGE BOWEL MOVEMENT. PT HAS BEEN AMBULATING IN THE ROOM AND STATED HE FEELS BETTER NOW THAN HE HAS IN THE LAST MONTH. PT REQUESTED TO HAVE HIS PAIN MEDICATION WITHOUT TYLENOL. PT WAS INSTRUCTED IF HE WAS TO START HAVING PAIN AGAIN HE NEEDED TO GO TO .
--- NOTE | 2022-04-07 13:04 | CARE MANAGER ---
Contacted patient related to hospital discharge. He states he feels much better. He has a colonoscopy and EGD scheduled at tomorrow so he is doing the prep today. He states prior to this he was able to eat normal. He denies any questions or concerns and is aware of follow up appointments. LIN Whelan
== END 2022-04-03 13:09 | disposition home or self-care (01) ==
LOC: ER 11:18 → 2ND 16:52
PROVIDERS: Admitting Provider Internal Medicine Adolescent Medicine; Emergency Provider Emergency Medicine; PCP Internal Medicine Adolescent Medicine; Visit Provider Internal Medicine Adolescent Medicine
DX: K56.600 Partial intestinal obstruction, unspecified as to cause (principal); K52.9 Noninfective gastroenteritis and colitis, unspecified; F17.210 Nicotine dependence, cigarettes, uncomplicated; Z85.048 Personal history of other malignant neoplasm of rectum, rectosigmoid junction, and anus; Z79.899 Other long term (current) drug therapy; Z20.822 Contact with and (suspected) exposure to COVID-19
CPT/HCPCS: G0378; 36415; 74177; 80048; 80053; 81001; 83605; 83690; 85025; 99285; C9803; J2405; Q9967; U0003; U0005

== ENCOUNTER 2023-02-24 14:29 | Outpatient (CLI) | payer MEDICARE, MEDICAID, SELFPAY ==
[2023-02-24 14:44] VITALS: BMI 17.4
[2023-02-24 15:06] LABS: Basophils % 0.5 % (0.1-2.0); Eosinophils # 0.1 K/mm3 (0.0-0.4); Eosinophils % 1.4 % (0.1-12.0); Hematocrit 28.5 % (42.0-52.0); Hemoglobin 9.1 g/dL (14.1-18.0); Lymphocytes # 1.1 K/mm3 (0.7-4.5); Lymphocytes % 13.8 % (10-50); Mean Corpuscular HGB Conc 31.8 g/dL (31.8-35.4); Mean Corpuscular Hemoglobin 30.2 pg (27.0-31.2); Mean Corpuscular Volume 95.1 fl (80-94); Mean Platelet Volume 7.8 fl (7.4-10.4); Monocytes # 0.6 K/mm3 (0.1-1.0); Monocytes % 7.4 % (1.7-9.3); Neutrophils % 76.9 % (37.0-80.0); Platelet Count 659 K/mm3 (142-424); Red Cell Distribution Width 14.8 % (11.5-17.5); White Blood Count 7.7 K/mm3 (4.8-10.8)
[2023-02-24 15:08] LABS: Chloride 86 mmol/L (98-107); Potassium 3.1 mmoL/L (3.5-5.1); Sodium 131 mmol/L (136-145)
[2023-02-24 15:10] LABS: Alanine Aminotransferase 16 U/L (12-78); Albumin Level 3.2 g/dl (3.5-5.0); Albumin/Globulin Ratio 0.9 (1.1-1.8); Alkaline Phosphatase 119 U/L (38-126); Anion Gap 8.1 mEq/L (5-15); Aspartate Amino Transferase 25 U/L (17-59); Bilirubin,Total 0.2 mg/dl (0.2-1.3); Blood Urea Nitrogen 23 mg/dl (9-20); Carbon Dioxide 40 mmol/L (22.0-30.0); Creatinine Clearance Estimated 49 mL/min (50-200); Estimated Glomerular Filt Rate 48 ml/min (>60); GFR (African American) 59 ML/MIN (>60); Globulin 3.7 g/dL (1.3-3.2); Total Protein,Serum 6.9 g/dl (6.3-8.2)
[2023-02-24 15:11] LABS: Calcium 8.9 mg/dl (8.4-10.2); Glucose 106 mg/dl (74-100); Magnesium 1.6 mg/dl (1.6-2.3); Phosphorous 3.3 mg/dl (2.5-4.5)
== END 2023-02-24 14:45 | disposition home or self-care (01) ==
LOC: INF 14:32
PROVIDERS: Surgery; PCP Internal Medicine
DX: K63.2 Fistula of intestine (principal); Z45.2 Encounter for adjustment and management of vascular access device
CPT/HCPCS: 36592; 80053; 83735; 84100; 85025

== ENCOUNTER 2023-03-01 12:56 | Outpatient (CLI) | payer MEDICARE, MEDICAID, SELFPAY ==
[2023-03-01 13:01] VITALS: BMI 17.4
[2023-03-01 13:25] LABS: Basophils % 0.2 % (0.1-2.0); Eosinophils # 0.2 K/mm3 (0.0-0.4); Eosinophils % 2.2 % (0.1-12.0); Hematocrit 26.3 % (42.0-52.0); Hemoglobin 8.3 g/dL (14.1-18.0); Lymphocytes # 0.8 K/mm3 (0.7-4.5); Lymphocytes % 7.5 % (10-50); Mean Corpuscular HGB Conc 31.7 g/dL (31.8-35.4); Mean Corpuscular Hemoglobin 29.8 pg (27.0-31.2); Mean Corpuscular Volume 94.1 fl (80-94); Mean Platelet Volume 7.8 fl (7.4-10.4); Monocytes # 0.5 K/mm3 (0.1-1.0); Monocytes % 4.9 % (1.7-9.3); Neutrophils # 8.4 K/mm3 (1.8-7.8); Platelet Count 532 K/mm3 (142-424); Red Blood Count 2.79 M/mm3 (4.60-6.20); Red Cell Distribution Width 14.7 % (11.5-17.5); White Blood Count 9.9 K/mm3 (4.8-10.8)
[2023-03-01 13:29] LABS: MANUAL DIFFERENTIAL MANUAL DIFFERENTIAL (MANUAL DIFF)
[2023-03-01 13:35] LABS: Chloride 92 mmol/L (98-107); Sodium 129 mmol/L (136-145)
[2023-03-01 13:36] LABS: Potassium 4.1 mmoL/L (3.5-5.1)
[2023-03-01 13:38] LABS: Alanine Aminotransferase 20 U/L (12-78); Albumin/Globulin Ratio 0.9 (1.1-1.8); Alkaline Phosphatase 103 U/L (38-126); Anion Gap 10.1 mEq/L (5-15); Aspartate Amino Transferase 30 U/L (17-59); Bilirubin,Total 0.3 mg/dl (0.2-1.3); Blood Urea Nitrogen 29 mg/dl (9-20); Calcium 8.7 mg/dl (8.4-10.2); Carbon Dioxide 31 mmol/L (22.0-30.0); Creatinine Clearance Estimated 53 mL/min (50-200); Estimated Glomerular Filt Rate 52 ml/min (>60); GFR (African American) 63 ML/MIN (>60); Globulin 3.5 g/dL (1.3-3.2); Glucose 132 mg/dl (74-100); Phosphorous 3.7 mg/dl (2.5-4.5); Total Protein,Serum 6.5 g/dl (6.3-8.2)
[2023-03-01 13:39] LABS: Magnesium 1.8 mg/dl (1.6-2.3); Triglycerides 93 mg/dl (30-150)
[2023-03-01 14:25] LABS: Lymphocytes % 5 % (10-50); Monocytes % 7 % (2-9); Neutrophils % 88 % (42-76); Platelet Estimate Slight Increase; Total Cells Counted 100
[2023-03-01 14:26] LABS: RBC Morphology Normal
[2023-03-02 08:18] LABS: Prealbumin 11 mg/dL (10-36)
== END 2023-03-01 13:30 | disposition home or self-care (01) ==
LOC: INF 12:56
PROVIDERS: PCP Internal Medicine; Visit Provider Surgery
DX: K63.2 Fistula of intestine (principal); E46 Unspecified protein-calorie malnutrition; Z45.2 Encounter for adjustment and management of vascular access device
CPT/HCPCS: 36592; 80053; 83735; 84100; 84134; 84478; 85007; 85025

== ENCOUNTER 2023-03-03 13:19 | Outpatient (CLI) | payer MEDICARE, MEDICAID, SELFPAY ==
--- NOTE | 2023-03-03 14:00 | PC.NURSE ---
1400-CHECKED RED LUMEN FOR BLOOD RETURN AFTER 30MINS OF CATH DONY INSTILLATION; NO RETURN WILL WAIT 30 MORE MINS AND RECHECK FOR BLOOD RETURN
--- NOTE | 2023-03-03 14:30 | PC.NURSE ---
1430-CHECKED RED LUMEN FOR PATENCY AND BLOOD RETURN; LUMEN IS POSITIVE FOR PATENCY AND BLOOD RETURN;ALSO CHECKED PURPLE LUMEN AND IT WAS PATENT AND GAVE BLOOD RETURN AT THIS TIME ALSO. PT D/C HOME AND INSTRUCTED TO FLUSHED PICC LINE TWICE DAILY AND AFTER HOME INFUSIONS.
== END 2023-03-03 14:38 | disposition home or self-care (01) ==
LOC: INF 13:20
PROVIDERS: PCP Internal Medicine; Visit Provider Surgery
DX: K63.2 Fistula of intestine (principal); Z45.2 Encounter for adjustment and management of vascular access device
CPT/HCPCS: 36593

== ENCOUNTER 2023-03-08 13:58 | Outpatient (CLI) | payer MEDICARE, MEDICAID, SELFPAY ==
[2023-03-08 14:01] VITALS: BMI 17.4
[2023-03-08 14:28] LABS: Alanine Aminotransferase 20 U/L (12-78); Albumin Level 3.1 g/dl (3.5-5.0); Albumin/Globulin Ratio 0.9 (1.1-1.8); Alkaline Phosphatase 122 U/L (38-126); Anion Gap 10.8 mEq/L (5-15); Aspartate Amino Transferase 24 U/L (17-59); Blood Urea Nitrogen 41 mg/dl (9-20); Calcium 8.3 mg/dl (8.4-10.2); Carbon Dioxide 28 mmol/L (22.0-30.0); Chloride 103 mmol/L (98-107); Creatinine Clearance Estimated 62 mL/min (50-200); Estimated Glomerular Filt Rate 63 ml/min (>60); GFR (African American) 76 ML/MIN (>60); Globulin 3.6 g/dL (1.3-3.2); Glucose 107 mg/dl (74-100); Magnesium 2.4 mg/dl (1.6-2.3); Phosphorous 3.3 mg/dl (2.5-4.5); Potassium 4.8 mmoL/L (3.5-5.1); Sodium 137 mmol/L (136-145); Total Protein,Serum 6.7 g/dl (6.3-8.2); Triglycerides 84 mg/dl (30-150)
[2023-03-08 14:36] LABS: Bilirubin,Total < 0.1 mg/dl (0.2-1.3)
[2023-03-08 14:38] LABS: Basophils % 0.3 % (0.1-2.0); Eosinophils # 0.1 K/mm3 (0.0-0.4); Eosinophils % 1.3 % (0.1-12.0); Hematocrit 28.9 % (42.0-52.0); Hemoglobin 8.9 g/dL (14.1-18.0); Lymphocytes # 1.3 K/mm3 (0.7-4.5); Lymphocytes % 13.2 % (10-50); Mean Corpuscular HGB Conc 30.8 g/dL (31.8-35.4); Mean Corpuscular Hemoglobin 29.4 pg (27.0-31.2); Mean Corpuscular Volume 95.4 fl (80-94); Mean Platelet Volume 7.9 fl (7.4-10.4); Monocytes # 0.5 K/mm3 (0.1-1.0); Monocytes % 5.1 % (1.7-9.3); Neutrophils # 7.7 K/mm3 (1.8-7.8); Platelet Count 744 K/mm3 (142-424); Red Blood Count 3.02 M/mm3 (4.60-6.20); Red Cell Distribution Width 15.6 % (11.5-17.5); White Blood Count 9.6 K/mm3 (4.8-10.8)
== END 2023-03-08 14:25 | disposition home or self-care (01) ==
LOC: INF 13:59
PROVIDERS: PCP Internal Medicine; Visit Provider Surgery
DX: K63.2 Fistula of intestine (principal); E46 Unspecified protein-calorie malnutrition; Z45.2 Encounter for adjustment and management of vascular access device
CPT/HCPCS: 36592; 80053; 83735; 84100; 84478; 85025

== ENCOUNTER 2023-03-15 13:31 | Outpatient (CLI) | payer MEDICARE, MEDICAID, SELFPAY ==
[2023-03-15 13:35] VITALS: BMI 17.4
[2023-03-15 13:57] LABS: Basophils % 0.3 % (0.1-2.0); Eosinophils # 0.1 K/mm3 (0.0-0.4); Eosinophils % 1.3 % (0.1-12.0); Hematocrit 27.6 % (42.0-52.0); Hemoglobin 8.8 g/dL (14.1-18.0); Lymphocytes # 0.9 K/mm3 (0.7-4.5); Lymphocytes % 9.7 % (10-50); Mean Corpuscular HGB Conc 31.8 g/dL (31.8-35.4); Mean Corpuscular Volume 97.4 fl (80-94); Monocytes # 0.6 K/mm3 (0.1-1.0); Monocytes % 6.5 % (1.7-9.3); Neutrophils # 7.2 K/mm3 (1.8-7.8); Neutrophils % 82.1 % (37.0-80.0); Platelet Count 556 K/mm3 (142-424); Red Blood Count 2.83 M/mm3 (4.60-6.20); Red Cell Distribution Width 15.1 % (11.5-17.5); White Blood Count 8.8 K/mm3 (4.8-10.8)
[2023-03-15 14:06] LABS: Alanine Aminotransferase 24 U/L (12-78); Albumin/Globulin Ratio 0.8 (1.1-1.8); Alkaline Phosphatase 135 U/L (38-126); Anion Gap 12.9 mEq/L (5-15); Aspartate Amino Transferase 18 U/L (17-59); Bilirubin,Total 0.1 mg/dl (0.2-1.3); Blood Urea Nitrogen 31 mg/dl (9-20); Calcium 8.2 mg/dl (8.4-10.2); Carbon Dioxide 22 mmol/L (22.0-30.0); Chloride 105 mmol/L (98-107); Creatinine Clearance Estimated 62 mL/min (50-200); Estimated Glomerular Filt Rate 63 ml/min (>60); GFR (African American) 76 ML/MIN (>60); Globulin 3.6 g/dL (1.3-3.2); Glucose 96 mg/dl (74-100); Magnesium 1.9 mg/dl (1.6-2.3); Potassium 4.9 mmoL/L (3.5-5.1); Sodium 135 mmol/L (136-145); Total Protein,Serum 6.6 g/dl (6.3-8.2)
[2023-03-15 14:13] LABS: Phosphorous 3.8 mg/dl (2.5-4.5); Triglycerides 41 mg/dl (30-150)
== END 2023-03-15 14:34 | disposition home or self-care (01) ==
LOC: INF 13:32
PROVIDERS: PCP Internal Medicine; Visit Provider Surgery
DX: E46 Unspecified protein-calorie malnutrition (principal); Z45.2 Encounter for adjustment and management of vascular access device
CPT/HCPCS: 36592; 80053; 83735; 84100; 84478; 85025

== ENCOUNTER 2023-03-22 13:35 | Outpatient (CLI) | payer MEDICARE, MEDICAID, SELFPAY ==
[2023-03-22 13:40] VITALS: BMI 18.6
[2023-03-22 14:15] LABS: Basophils % 0.2 % (0.1-2.0); Eosinophils # 0.1 K/mm3 (0.0-0.4); Eosinophils % 0.4 % (0.1-12.0); Hematocrit 27.7 % (42.0-52.0); Lymphocytes # 0.6 K/mm3 (0.7-4.5); Lymphocytes % 4.7 % (10-50); Mean Corpuscular HGB Conc 32.4 g/dL (31.8-35.4); Mean Corpuscular Hemoglobin 30.5 pg (27.0-31.2); Mean Platelet Volume 8.3 fl (7.4-10.4); Monocytes # 0.7 K/mm3 (0.1-1.0); Monocytes % 5.9 % (1.7-9.3); Neutrophils # 11.2 K/mm3 (1.8-7.8); Neutrophils % 88.9 % (37.0-80.0); Platelet Count 594 K/mm3 (142-424); Red Blood Count 2.94 M/mm3 (4.60-6.20); Red Cell Distribution Width 15.5 % (11.5-17.5); White Blood Count 12.6 K/mm3 (4.8-10.8)
[2023-03-22 14:17] LABS: Chloride 101 mmol/L (98-107)
[2023-03-22 14:18] LABS: MANUAL DIFFERENTIAL MANUAL DIFFERENTIAL (MANUAL DIFF); Potassium 4.8 mmoL/L (3.5-5.1); Sodium 133 mmol/L (136-145)
[2023-03-22 14:20] LABS: Alanine Aminotransferase 24 U/L (12-78); Alkaline Phosphatase 171 U/L (38-126); Anion Gap 13.8 mEq/L (5-15); Aspartate Amino Transferase 30 U/L (17-59); Bilirubin,Total 0.3 mg/dl (0.2-1.3); Blood Urea Nitrogen 36 mg/dl (9-20); Carbon Dioxide 23 mmol/L (22.0-30.0); Creatinine Clearance Estimated 53 mL/min (50-200); Estimated Glomerular Filt Rate 48 ml/min (>60); GFR (African American) 59 ML/MIN (>60)
[2023-03-22 14:21] LABS: Albumin/Globulin Ratio 0.8 (1.1-1.8); Calcium 8.8 mg/dl (8.4-10.2); Globulin 3.7 g/dL (1.3-3.2); Glucose 116 mg/dl (74-100); Magnesium 2.1 mg/dl (1.6-2.3); Total Protein,Serum 6.7 g/dl (6.3-8.2)
[2023-03-22 14:34] LABS: Lymphocytes % 4 % (10-50); Monocytes % 3 % (2-9); Neutrophils % 93 % (42-76); Platelet Estimate Moderate Increase; RBC Morphology Normal; Total Cells Counted 100
[2023-03-22 14:55] LABS: Triglycerides 56 mg/dl (30-150)
== END 2023-03-22 14:00 | disposition home or self-care (01) ==
LOC: INF 13:37
PROVIDERS: PCP Internal Medicine; Visit Provider Surgery
DX: E46 Unspecified protein-calorie malnutrition (principal); Z45.2 Encounter for adjustment and management of vascular access device
CPT/HCPCS: 36592; 80053; 83735; 84100; 84478; 85007; 85025

== ENCOUNTER 2023-03-29 13:57 | Outpatient (CLI) | payer MEDICARE, MEDICAID, SELFPAY ==
[2023-03-29 14:04] VITALS: BMI 18.6
[2023-03-29 14:28] LABS: Basophils % 0.2 % (0.1-2.0); Eosinophils # 0.2 K/mm3 (0.0-0.4); Eosinophils % 1.4 % (0.1-12.0); Hematocrit 26.7 % (42.0-52.0); Hemoglobin 8.6 g/dL (14.1-18.0); Lymphocytes # 0.8 K/mm3 (0.7-4.5); Lymphocytes % 6.5 % (10-50); Mean Corpuscular HGB Conc 32.2 g/dL (31.8-35.4); Mean Corpuscular Hemoglobin 30.2 pg (27.0-31.2); Mean Corpuscular Volume 93.8 fl (80-94); Mean Platelet Volume 7.8 fl (7.4-10.4); Monocytes # 0.8 K/mm3 (0.1-1.0); Neutrophils # 10.1 K/mm3 (1.8-7.8); Neutrophils % 84.9 % (37.0-80.0); Platelet Count 482 K/mm3 (142-424); Red Blood Count 2.85 M/mm3 (4.60-6.20); Red Cell Distribution Width 15.6 % (11.5-17.5); White Blood Count 11.9 K/mm3 (4.8-10.8)
[2023-03-29 14:34] LABS: Chloride 100 mmol/L (98-107)
[2023-03-29 14:35] LABS: Sodium 131 mmol/L (136-145)
[2023-03-29 14:37] LABS: Alanine Aminotransferase 21 U/L (12-78); Aspartate Amino Transferase 27 U/L (17-59); Blood Urea Nitrogen 27 mg/dl (9-20); Carbon Dioxide 23 mmol/L (22.0-30.0); Creatinine Clearance Estimated 66 mL/min (50-200); Estimated Glomerular Filt Rate 63 ml/min (>60); GFR (African American) 76 ML/MIN (>60)
[2023-03-29 14:38] LABS: Albumin Level 2.6 g/dl (3.5-5.0); Albumin/Globulin Ratio 0.8 (1.1-1.8); Alkaline Phosphatase 127 U/L (38-126); Bilirubin,Total 0.2 mg/dl (0.2-1.3); Calcium 8.2 mg/dl (8.4-10.2); Globulin 3.4 g/dL (1.3-3.2); Glucose 119 mg/dl (74-100); Phosphorous 3.4 mg/dl (2.5-4.5); Triglycerides 38 mg/dl (30-150)
[2023-03-31 08:58] LABS: Prealbumin 10 mg/dL (10-36)
== END 2023-03-29 14:30 | disposition home or self-care (01) ==
LOC: INF 13:58
PROVIDERS: PCP Internal Medicine; Visit Provider Surgery
DX: E46 Unspecified protein-calorie malnutrition (principal); Z45.2 Encounter for adjustment and management of vascular access device; K63.2 Fistula of intestine
CPT/HCPCS: 36592; 80053; 83735; 84100; 84134; 84478; 85025

== ENCOUNTER 2023-04-12 14:09 | Outpatient (CLI) | payer MEDICARE, MEDICAID, SELFPAY ==
[2023-04-12 14:50] VITALS: BMI 18.6
[2023-04-12 15:11] LABS: Basophils % 0.2 % (0.1-2.0); Eosinophils % 0.2 % (0.1-12.0); Hematocrit 25.8 % (42.0-52.0); Hemoglobin 8.1 g/dL (14.1-18.0); Lymphocytes # 0.5 K/mm3 (0.7-4.5); Lymphocytes % 2.6 % (10-50); Mean Corpuscular HGB Conc 31.4 g/dL (31.8-35.4); Mean Corpuscular Hemoglobin 28.6 pg (27.0-31.2); Mean Corpuscular Volume 91.2 fl (80-94); Mean Platelet Volume 8.4 fl (7.4-10.4); Monocytes # 0.5 K/mm3 (0.1-1.0); Monocytes % 2.9 % (1.7-9.3); Neutrophils # 17.5 K/mm3 (1.8-7.8); Neutrophils % 94.1 % (37.0-80.0); Platelet Count 741 K/mm3 (142-424); Red Blood Count 2.83 M/mm3 (4.60-6.20); White Blood Count 18.6 K/mm3 (4.8-10.8)
[2023-04-12 15:19] LABS: Chloride 104 mmol/L (98-107); Potassium 4.6 mmoL/L (3.5-5.1); Sodium 136 mmol/L (136-145)
[2023-04-12 15:21] LABS: Blood Urea Nitrogen 22 mg/dl (9-20); Creatinine Clearance Estimated 72 mL/min (50-200); Estimated Glomerular Filt Rate 69 ml/min (>60); GFR (African American) 84 ML/MIN (>60)
[2023-04-12 15:22] LABS: Alanine Aminotransferase 21 U/L (12-78); Albumin Level 2.8 g/dl (3.5-5.0); Albumin/Globulin Ratio 0.7 (1.1-1.8); Alkaline Phosphatase 176 U/L (38-126); Anion Gap 12.6 mEq/L (5-15); Aspartate Amino Transferase 25 U/L (17-59); Bilirubin,Total 0.3 mg/dl (0.2-1.3); Carbon Dioxide 24 mmol/L (22.0-30.0); Globulin 3.8 g/dL (1.3-3.2); Glucose 93 mg/dl (74-100); Magnesium 1.8 mg/dl (1.6-2.3); Phosphorous 3.3 mg/dl (2.5-4.5); Total Protein,Serum 6.6 g/dl (6.3-8.2); Triglycerides 58 mg/dl (30-150)
[2023-04-12 15:26] LABS: MANUAL DIFFERENTIAL MANUAL DIFFERENTIAL (MANUAL DIFF)
[2023-04-12 16:07] LABS: Eosinophils % 1 % (0-3); Lymphocytes % 6 % (10-50); Neutrophils % 93 % (42-76); Platelet Estimate Moderate Increase; RBC Morphology Normal; Total Cells Counted 100
== END 2023-04-12 15:30 | disposition home or self-care (01) ==
LOC: INF 14:11
PROVIDERS: PCP Internal Medicine; Visit Provider Surgery
DX: K63.2 Fistula of intestine (principal); E46 Unspecified protein-calorie malnutrition; Z45.2 Encounter for adjustment and management of vascular access device
CPT/HCPCS: 36415; 80053; 83735; 84100; 84478; 85007; 85025; 96523

== ENCOUNTER → 2023-04-29 09:18 | Outpatient (CLI) | payer MEDICARE, SELFPAY ==
--- NOTE | 2023-04-29 09:20 | CT_ITS ---
FINAL REPORT TECHNIQUE: Thin section axial images are obtained through the abdomen and pelvis after intravenous contrast. Reconstruction images were obtained from the axial data. Exam was performed using dose reduction techniques. CLINICAL HISTORY: STOMACH UPSET COMPARISON: 04/01/2022 FINDINGS: LUNG BASES: Right middle lobe scar is present. Heart size is normal. LIVER: The liver is mildly enlarged. No focal lesion. GALLBLADDER/BILIARY SYSTEM: Gallbladder is present. No gallstones. No biliary dilatation. SPLEEN: Unremarkable. PANCREAS: Unremarkable. ADRENALS: Unremarkable. SYSTEM: There is bilateral hydronephrosis with cortical thinning on the left side. This is stable since the prior CT of March 2022. Cortical thinning remains in the left kidney. There is wall thickening of the bladder, stable. Pelvic organs are unremarkable for age. GI TRACT: There are fluid-filled small bowel loops predominantly on the left side with associated wall thickening. There are dilated loops of small bowel in the right side of the abdomen and pelvis. Overall the degree of dilation of small bowel has improved, however a partial small bowel obstruction cannot be excluded. The proximal portions of the colon are decompressed. There is a right lower quadrant ostomy. There is wall thickening of the distal colon and rectum, also noted on the prior CT. LYMPH NODES/RETROPERITONEUM/MESENTERY: No lymphadenopathy. No abdominal aortic aneurysm. There is abnormal soft tissue in the presacral and perirectal regions, which appear stable. These are likely a combination of postoperative and postradiation changes in the pelvis. There is no convincing evidence of free fluid. OTHER: Remaining soft tissues without acute abnormality. BONES: No acute osseous abnormality. IMPRESSION: There are dilated loops of small bowel in the right abdomen and pelvis, with a right lower quadrant ostomy present. Overall the appearance is slightly improved since the prior CT of March 2022, but partial small bowel obstruction cannot be excluded. There is stable bilateral hydronephrosis with cortical thinning on the left side, and no renal masses seen. Postoperative and likely postradiation changes in the pelvis as described. Reviewed, Interpreted and Dictated by Nelia Dsouza MD Transcribed by Olivia Porter Authenticated and . [facility]
== END ==
PROVIDERS: PCP Internal Medicine; Visit Provider Surgery
DX: C20 Malignant neoplasm of rectum (principal)
CPT/HCPCS: 74177; Q9967

== ENCOUNTER 2024-09-03 13:26 | Emergency (ER) | payer MEDICARE, SELFPAY ==
[2024-09-03] VITALS (8 sets, daily range): BP systolic 116–165; BP diastolic 76–107; PULSE 42–86; RESP 10–26; TEMP 36.7–36.9; O2SAT 95–100; BMI 20.1
--- NOTE | 2024-09-03 14:44 | EXP.UTC ---
Discharge Plan Disposition Patient Disposition: Left Against Medical Advice Condition: Serious Prescriptions Prescriptions: New albuterol sulfate 90 mcg/actuation HFA aerosol inhaler 2 inh inhalation Q6H PRN (Reason: shortness of breath or wheezing) Qty: 8.5 0RF Referrals Follow up/Referrals: Surya Hernandez MD [Primary Care Provider] - See instructions Activity Restrictions/Add. Instructions Additional Instructions/Restrictions: Go to cardiology clinic at 11am. Clinical Impressions Clinical Impression: Bradycardia, Elevated troponin, Breath shortness Print Language Print Language: Georgian Discharge ED Provider: Xavier Avendano [facility] General Chief complaint: Shortness of Breath/Dyspnea Stated complaint: cough, congestion Mode of Arrival: Ambulatory Source of Information: Patient Limitations: No Limitations Time Seen by Provider: 09/03/24 14:44 Description of Symptoms (Recalled from Triage Doc. by RN): PATIENT C/O CHEST CONGESTION, DIFFICULTY BREATHING, AND SWELLING TO BLE THAT STARTED WEDNESDAY. HE STATES HE WAS SHOWERING LAST NIGHT AND ALMOST PASSED OUT FROM BEING SOA HEENT Symptoms (Recalled from RN notes): No Resp Symptoms (Recalled from RN notes): Yes Skin Symptoms (Recalled from RN notes): No MS Symptoms (Recalled from RN notes): No Functional Status (Recalled from RN notes): WNL History of Present Illness Provider Complaint: Patient states that he started having chest congestion, cough, shortness of breath and swelling to bilateral lower extremities on and symptoms has continued to get worse States that if he is sitting his SOA is not that bad but if he is up moving around he feels like he cannot breath well, and last night he was in the shower and got so short of breath he felt like he was going to pass out States today when he gets up moving around he feels like he cannot breath and feels like he has fluid in his lungs and it is getting worse so he came in to get checked Related Data Previous Rx's ?Medication ?Instructions ?Recorded albuterol sulfate 90 mcg/actuation 2 inh inhalation Q6H PRN shortness 09/03/24 aerosol inhaler of breath or wheezing #8.5 grams Allergies Allergy/AdvReac Type Severity Reaction Status Date / Time cephalexin Allergy Mild Rash Verified 09/03/24 15:20 morphine Allergy Vomiting Verified 09/03/24 15:20 acetaminophen (From Tylenol) AdvReac Mild Nausea Verified 09/03/24 15:20 Worker's Comp Is this a Worker's Comp case?: No [facility] Disclaimer: The information contained in this section may have been updated after the patient was seen, as this information can be updated by other users. Medical History Anxiety Colon cancer Depression Small bowel obstruction Family History Other No significant family history Social History Smoking Status: Light tobacco smoker tobacco type: cigarettes packs per day: 1 second hand exposure: Yes alcohol intake: never substance use type: denies use current occupational status: other Travel in the last 8 weeks: None household members: family and children housing: house caffeine: No Have you lived/traveled outside US in past 30 days?: No Contact w/someone who lives/traveled outside US past 30 days?: No Exposure to someone with infectious disease in past 14 days?: No Do you have a fever (greater than 100.4 F or 38 C)?: No Have you tested positive for COVID-19: No Exposed to someone with COVID-19 in past 14 days?: No Do you have a sore throat?: No Do you have a cough?: Yes Do you have any weakness?: No Do you have any diarrhea?: No Are you experiencing any unusual bleeding?: No Do you have any muscle aches/pain?: No Do you have any abdominal pain?: No Are you experiencing loss of taste or smell?: No ROS Obtained: Yes All systems reviewed & no additional complaints except as documented and Yes Systems reviewed as appropriate & no additional complaints except as documented Constitutional Constitutional: Reports system reviewed and no additional complaints, except as documented and Reports as per HPI ENT Ears, Nose, Mouth, and Throat: Reports system reviewed and no additional complaints, except as documented and Reports as per HPI Cardiovascular Cardiovascular: Reports system reviewed and no additional complaints, except as documented, Reports as per HPI, Denies chest pain, Reports dyspnea, Reports dyspnea on exertion and Reports edema Respiratory Respiratory: Reports system reviewed and no additional complaints, except as documented, Reports as per HPI, Reports shortness of breath, Reports chest congestion, Reports cough, Reports dyspnea and Reports dyspnea on exertion Gastrointestinal Gastrointestingal: Reports system reviewed and no additional complaints, except as documented and as per HPI Genitourinary Male Genitourinary: Reports system reviewed and no additional complaints, except as documented and Reports as per HPI Neurologic Neurologic: Reports system reviewed and no additional complaints, except as documented, Reports as per HPI and Reports other (felt like he was going to pass out last night in shower) Physical Exam General General appearance: alert and in no apparent distress Respiratory Respiratory exam: Present respiratory distress (Patient sitting up on edge of exam table tripod position, tachypneic rate of 26-30, ) Cardiovascular Cardiovascular exam: Present bradycardia Extremities Exam Extremities exam: Present edema Expanded Lower Extremity Exam bilateral: Lower leg exam: Present swelling and other (2+ pitting edema noted with shinny skin noted ) Neurological Exam Neurological exam: Present alert and oriented X3 Medical Decision Making Medical Records Screening: Per USPSTF and CDC recommendations, given the prevalence of disease in our region, it is our hospital?s policy to screen for HIV and viral Hepatitis for all patients aged 18 and over and those with ongoing risk factors. Ty Inquiry Pt receiving controlled substance: No Ty was queried for this patient: No Vital Signs: 09/03/24 14:35 Temperature 98.1 F Temperature Source Oral Pulse Rate [Left Brachial] 43 L Respiratory Rate 26 H Blood Pressure [Left Arm] 116/76 Blood Pressure Mean [Left Arm] 89 Blood Pressure Source [Left Arm] Automatic Cuff Blood Pressure Position [Left Arm] Sitting 02 Sat by Pulse Oximetry 97 Oxygen Delivery Method Room Air Lab Data 09/03/24 15:08 09/03/24 15:08 Medical Decision Narrative: Patient complaining of severe shortness of breathing and feeling like he has fluid in his lungs, near syncope and new onset swelling of bilateral lower extremities Patient sitting on exam table tripod position HR found to be in low 40's and RR 26-30 discussed with patient and recommended transfer to the ED for more extensive work up and evaluation due to symptoms and patient palor in color and he agreed Called ED and patient was moved to the ED for furhter work up and evaluaiton
--- NOTE | 2024-09-03 14:56 | PC.NURSE ---
PATIENT SENT TO ER PER Clarence NOLAND APRN FOR FURTHER EVALUATION. REPORT GIVEN TO Kade MORENO RN AND Hanna MONTOYA RN. PATIENT TRANSPORTED TO ER [facility] PATIENT AT BEDSIDE
--- NOTE | 2024-09-03 15:02 | PC.NURSE ---
pt arrived to Rm #6 from the [facility]
--- NOTE | 2024-09-03 15:05 | ECG_ITS ---
APPROVED REPORT Exam: Resting ECG HR:43 bpm ECG Measurements Heart Rate 43 AXES QRSd 160 QRS 111 QT 578 T -81 QTc 525 Conclusion ATRIAL FIBRILLATION WITH SLOW VENTRICULAR RESPONSE, possible complete heart block RIGHT BUNDLE BRANCH BLOCK [120+ ms QRS DURATION, UPRIGHT V1, 40+ ms S IN I/aVL/V4/V5/V6] LEFT POSTERIOR FASCICULAR BLOCK [QRS AXIS > 109, INFERIOR Q] ST DEVIATION AND MARKED T-WAVE ABNORMALITY, CONSIDER INFERIOR ISCHEMIA [-0.5+ mV T-WAVE IN II/aVF] PROLONGED QT INTERVAL CRITICAL TEST RESULT UNCONFIRMED REPORT Electronically signed by : Xavier Avendano, 09/03/2024 23:20:57
--- NOTE | 2024-09-03 15:08 | ED_ITS ---
Discharge Plan Disposition Patient Disposition: Left Against Medical Advice Condition: Serious Prescriptions Prescriptions: New albuterol sulfate 90 mcg/actuation HFA aerosol inhaler 2 inh inhalation Q6H PRN (Reason: shortness of breath or wheezing) Qty: 8.5 0RF Referrals Follow up/Referrals: Surya Hernandez MD [Primary Care Provider] - See instructions Activity Restrictions/Add. Instructions Additional Instructions/Restrictions: Go to cardiology clinic at 11am. Clinical Impressions Clinical Impression: Bradycardia, Elevated troponin, Breath shortness Print Language Print Language: Malay Discharge ED Provider: Xavier Avendano General Adult HPI General Chief complaint: Shortness of Breath/Dyspnea Stated complaint: cough, congestion Time Seen by Provider: 09/03/24 14:44 Mode of Arrival: Ambulatory Source of Information: Patient Limitations: No Limitations Description of Symptoms (Recalled from ER Triage Doc. by RN): PATIENT C/O CHEST CONGESTION, DIFFICULTY BREATHING, AND SWELLING TO BLE THAT STARTED WEDNESDAY. HE STATES HE WAS SHOWERING LAST NIGHT AND ALMOST PASSED OUT FROM BEING SOA History of Present Illness HPI narrative: Patient is a 58-year-old male with a history of colorectal cancer, reportedly in remission, bradycardia?. Patient is presenting today due to cough and congestion. He reports that it has been going on for the last 3 days and he has felt increasingly short of breath. Worse with exertion. No significant orthopnea, though he does have lower extremity edema. That is chronic. He denies any fevers, chest pain, vomiting. He reports chronic diarrhea nonbloody. He reports worsening productive cough. Denies sick contacts. He reports that his heart rate always runs low Related Data Previous Rx's ?Medication ?Instructions ?Recorded albuterol sulfate 90 mcg/actuation 2 inh inhalation Q6H PRN shortness 09/03/24 aerosol inhaler of breath or wheezing #8.5 grams Allergies Allergy/AdvReac Type Severity Reaction Status Date / Time cephalexin Allergy Mild Rash Verified 09/03/24 15:20 morphine Allergy Vomiting Verified 09/03/24 15:20 acetaminophen (From Tylenol) AdvReac Mild Nausea Verified 09/03/24 15:20 [facility] Disclaimer: The information contained in this section may have been updated after the patient was seen, as this information can be updated by other users. Medical History Anxiety Colon cancer Depression Small bowel obstruction Family History Other No significant family history Social History Smoking Status: Light tobacco smoker tobacco type: cigarettes packs per day: 1 second hand exposure: Yes alcohol intake: never substance use type: denies use current occupational status: other Travel in the last 8 weeks: None household members: family and children housing: house caffeine: No Have you lived/traveled outside US in past 30 days?: No Contact w/someone who lives/traveled outside US past 30 days?: No Exposure to someone with infectious disease in past 14 days?: No Do you have a fever (greater than 100.4 F or 38 C)?: No Have you tested positive for COVID-19: No Exposed to someone with COVID-19 in past 14 days?: No Do you have a sore throat?: No Do you have a cough?: Yes Do you have any weakness?: No Do you have any diarrhea?: No Are you experiencing any unusual bleeding?: No Do you have any muscle aches/pain?: No Do you have any abdominal pain?: No Are you experiencing loss of taste or smell?: No Other Medical History Have you received the Flu Vaccine for this season: No Have you received the Pneumonia Vaccine: No ROS Obtained: Yes All systems reviewed & no additional complaints except as documented Physical Exam General General appearance: alert and in no apparent distress Head Head exam: atraumatic and normocephalic Eye Eye exam: Present PERRL and EOMI ENT ENT exam: Present normal oropharynx Neck Neck exam: Present full ROM and trachea midline Chest Chest inspection: Present symmetric chest wall rise Respiratory Respiratory exam: Present normal lung sounds bilaterally; Absent stridor Cardiovascular Cardiovascular exam: Present normal rhythm and bradycardia Abdominal Exam Abdominal exam: Present soft; Absent distention or tenderness Extremities Exam Extremities exam: Present full ROM and edema (BLE 2+) Neurological Exam Neurological exam: Present alert and oriented X3 Psychiatric Psychiatric exam: Present normal mood Skin Skin exam: Present warm and dry Medical Decision Making Medical Records Screening: Per USPSTF and CDC recommendations, given the prevalence of disease in our region, it is our hospital?s policy to screen for HIV and viral Hepatitis for all patients aged 18 and over and those with ongoing risk factors. Ty Inquiry Pt receiving controlled substance: No Vital Signs: 09/03/24 14:35 09/03/24 15:09 09/03/24 15:26 Temperature 98.1 F 98.4 F Temperature Source Oral Oral Pulse Rate 51 L Pulse Rate [Left Brachial] 43 L 42 L Respiratory Rate 26 H 15 13 Blood Pressure 148/87 H Blood Pressure [Left Arm] 116/76 148/88 H Blood Pressure Mean [Left Arm] 89 108 Blood Pressure Source [Left Arm] Automatic Cuff Blood Pressure Position [Left Arm] Sitting 02 Sat by Pulse Oximetry 97 96 97 Oxygen Delivery Method Room Air Room Air Room Air 09/03/24 15:30 09/03/24 15:31 09/03/24 15:37 Temperature Temperature Source Pulse Rate 86 78 Pulse Rate [Left Brachial] Respiratory Rate 11 L 10 L 11 L Blood Pressure 164/107 H 165/106 H 150/97 H Blood Pressure [Left Arm] Blood Pressure Mean [Left Arm] Blood Pressure Source [Left Arm] Blood Pressure Position [Left Arm] 02 Sat by Pulse Oximetry 96 95 95 Oxygen Delivery Method Room Air Room Air Room Air 09/03/24 16:00 Temperature Temperature Source Pulse Rate 73 Pulse Rate [Left Brachial] Respiratory Rate 10 L Blood Pressure 134/90 Blood Pressure [Left Arm] Blood Pressure Mean [Left Arm] Blood Pressure Source [Left Arm] Blood Pressure Position [Left Arm] 02 Sat by Pulse Oximetry 100 Oxygen Delivery Method Room Air Lab Data Lab Results 09/03/24 15:08: WBC 9.0, RBC 3.33 L, Hgb 10.7 L, Hct 31.8 L, MCV 95.5 H, MCH 32.1 H, MCHC 33.6, RDW 14.0, Plt Count 365, MPV 10.5 H, Neut % (Auto) 49.0, Lymph % (Auto) 14.1, [place] % (Auto) 12.5 H, Eos % (Auto) 23.1 H, Baso % (Auto) 1.1, Neut # (Auto) 4.4, Lymph # (Auto) 1.3, [place] # (Auto) 1.1 H, Eos # (Auto) 2.1 H, Baso # (Auto) 0.1, Sodium 138, Potassium 4.1, Chloride 103, Carbon Dioxide 28, Anion Gap 11.1, BUN 21 H, Creatinine 1.30 H, Estimated Creat Clear 64, Estimated GFR 57 L, Est GFR ( Amer) 69, Glucose 65 L, Calcium 8.9, Phosphorus 3.2, Magnesium 1.2 L, Total Bilirubin 0.3, AST 29, ALT 26, Alkaline Phosphatase 136 H, Troponin I 0.42 H, Total Protein 6.8, Albumin 4.1, Globulin 2.7, Albumin/Globulin Ratio 1.5 09/03/24 15:23: SARS-CoV-2 (PCR) Not detected, Influenza A Untype (PCR) Not detected, Influenza Type B (PCR) Not detected 09/03/24 15:08 09/03/24 15:08 Orders (Tests/Meds): ED MEDICATIONS Generic Name Dose Route Start Last Admin Trade Name Freq PRN Reason Stop Dose Admin Heparin Sodium/Dextrose 500 mls @ 17.418 mls/hr 09/03/24 16:30 Heparin 25,000 Units In D5w 500ml Premix IV 10/03/24 16:29 .Q25H DANA 12 UNITS/KG/HR Discontinued Medications Generic Name Dose Route Start Last Admin Trade Name Freq PRN Reason Stop Dose Admin Albuterol/Ipratropium 3 ml 09/03/24 15:21 09/03/24 15:37 Ipratropium/Albuterol 3 Ml Neb IH 09/03/24 15:22 3 ml ONCE ONE Administration Aspirin 325 mg 09/03/24 16:04 09/03/24 16:12 Aspirin 325mg Tablet PO 09/03/24 16:05 325 mg ONCE ONE Administration Aspirin 325 mg 09/03/24 16:10 09/03/24 16:13 Aspirin 325mg Tablet PO 09/03/24 16:11 Not Given ONCE ONE Atropine Sulfate 1 mg 09/03/24 15:21 09/03/24 15:27 Atropine 1mg/10ml Syringe (Crash Cart) IV 09/03/24 15:22 1 mg ONCE ONE Administration Heparin Sodium (Porcine) 4,000 unit 09/03/24 16:30 Heparin Sodium 5,000 Unit/Ml Vial IV 09/03/24 16:31 BOLUS ONE Ketorolac Tromethamine 15 mg 09/03/24 15:39 09/03/24 15:42 Ketorolac 30mg/Ml Vial IV 09/03/24 15:40 15 mg ONCE ONE Administration Miscellaneous 1 each 09/03/24 16:15 09/03/24 16:15 Heparin Drip Consult NOTAPPLIC 10/03/24 16:14 1 each CONSULT PHARMACY DANA Administration ORDERS Category Date Time Status XR chest portable Stat Exams 09/03/24 15:21 Completed Complete Blood Count Auto Diff Stat Lab 09/03/24 15:08 Completed Comprehensive Metabolic Panel Stat Lab 09/03/24 15:08 Completed D-Dimer Stat Lab 09/03/24 15:05 Received Free T4 (Free Thyroxine) Stat Lab 09/03/24 15:54 Ordered HIV Combo Stat Lab 09/03/24 15:05 Received Hepatitis C Ab Qual. W/ RFX Stat Lab 09/03/24 15:05 Received Magnesium Stat Lab 09/03/24 15:08 Completed PTT Heparin (inpatient only) Stat Lab 09/03/24 15:05 Received Phosphorous Stat Lab 09/03/24 15:08 Completed Rapid PCR Covid and Flu A/B Stat Lab 09/03/24 15:23 Completed Thyroid Stimulating Hormone Stat Lab 09/03/24 15:54 Ordered Troponin I Q3H Lab 09/03/24 18:30 Ordered Troponin I Q3H Lab 09/03/24 21:30 Ordered Troponin I Stat Lab 09/03/24 15:08 Completed Medical Decision Narrative: In summary, this 58-year-old male presents to the emergency department today with cough, congestion. On initial evaluation patient is afebrile, bradycardic into the 40s, otherwise stable. On exam is warm and well-perfused with full pulses in all extremities, although it is a bradycardic pulse. He is denying any symptoms of lightheadedness, palpitations, chest pain. Bilateral wheezing end expiratory, no increased work of breathing no tachypnea, no retractions. Moving air in all lung calloway.. Differential diagnosis includes but is not limited to viral syndrome, pneumonia, COPD exacerbation, electrolyte disturbance, heart block, rate cardia. Based on these concerns, I ordered CBC CMP magnesium troponins chest x-ray. I reviewed prior records including [facility] EMR as indicated above. Cardiology there was not concerned, but I reviewed EKGs there and he did not have heart block whereas the EKG here initially did show that. ECG personally interpreted demonstrates first EKG independently interpreted by myself demonstrate complete heart block with an idiopathic rhythm. Second EKG after atropine demonstrates normal sinus rhythm with no acute ischemic ST changes.. Patient received aspirin for treatment. Labs personally reviewed demonstrate elevated troponin significantly and mild TAMMIE. XR personally interpreted demonstrates no acute intrathoracic process. I had an interactive discussion with cardiology. Recommends initiation of a heparin drip and admission for possible pacemaker placement.. I spoke with patient at length about the plan and my concern for his critical illness of possibly going in and out of heart block and could kill him. He is aware of this and is refusing to stay in the hospital. He reports he does not want to be admitted. The roentgenology teacher spoke with him as well and attempted to convince him to stay, however he again refused. He is able to verbalize back to me the risks of leaving. He is alert and oriented and GCS 15 clinically sober. He reports that he was struck to the cardiology clinic tomorrow at 11 AM. Will send with an albuterol inhaler for his shortness of breath he believes that helped. He is reminded that he may come back to the emergency department at any time to be reevaluated or admitted. Critical Care Critical Care Time Critical Care Time: Yes Attestation: On 09/03/24, the high probability of a clinically significant, sudden or life threatening deterioration of the following system(s) required my full and direct attention, intervention and personal management. The time I documented below is in addition to time spent performing reported procedures but includes the following listed in this critical care notation. Total Time Total Critical Care Time: 35
--- NOTE | 2024-09-03 15:21 | XR_ITS ---
PROCEDURE INFORMATION: Exam: XR Chest Exam date and time: 09/03/2024 3:46 PM Age: 58 years old Clinical indication: Shortness of breath; Additional info: SOB, cough TECHNIQUE: Imaging protocol: Radiologic exam of the chest. Views: 1 view. COMPARISON: CR Chest 03/06/2019 10:04 AM FINDINGS: Tubes, catheters and devices: Multiple overlying EKG wires. Transvenous device in the left hemithorax terminates over the left hilum Lungs: Hyperexpanded lung calloway consistent with COPD. Opacities in the left mid lung may represent atelectasis or pneumonia. Pleural spaces: Unremarkable. No pleural effusion. No pneumothorax. Heart/Mediastinum: Unremarkable. No cardiomegaly. Bones/joints: Unremarkable. IMPRESSION: Opacities in the left mid lung may represent atelectasis or pneumonia.
--- NOTE | 2024-09-03 15:25 | PC.NURSE ---
bedside with AB RN and MG RN. Atropine admin. repeat EKG. pt tolerated the med well. no needs voiced. call evans in reach.
[2024-09-03] MEDS: ATROPINE 1MG/10ML SYRINGE (CRASH CART) 1 MG IV (15:27)
--- NOTE | 2024-09-03 15:30 | ECG_ITS ---
APPROVED REPORT Exam: Resting ECG HR:88 bpm ECG Measurements Heart Rate 88 AXES AK 187 P 77 QRSd 164 QRS -71 QT 457 T 72 QTc 503 Conclusion SINUS RHYTHM WITH OCCASIONAL VENTRICULAR PREMATURE COMPLEXES POSSIBLE LEFT ATRIAL ENLARGEMENT [-0.1mV P-WAVE IN V1/V2] RIGHT BUNDLE BRANCH BLOCK [120+ ms QRS DURATION, UPRIGHT V1, 40+ ms S IN I/aVL/V4/V5/V6] LEFT ANTERIOR FASCICULAR BLOCK [QRS AXIS <= -45, QR IN I, RS IN II] MODERATE T-WAVE ABNORMALITY, CONSIDER ANTERIOR ISCHEMIA [-0.1+ mV T-WAVE IN V3/V4] ABNORMAL ECG UNCONFIRMED REPORT Electronically signed by : Xavier Avendano, 09/03/2024 23:19:01
[2024-09-03 15:31] LABS: Coronavirus 19, PCR Not Detected (NotDetected); Influenza A, PCR Not Detected (NotDetected); Influenza B, PCR Not Detected (NotDetected)
[2024-09-03 15:34] LABS: Basophils # 0.1 K/mm3 (0-0.2); Basophils % 1.1 % (0.1-2.0); Eosinophils # 2.1 K/mm3 (0.0-0.4); Eosinophils % 23.1 % (0.1-12.0); Hematocrit 31.8 % (42.0-52.0); Hemoglobin 10.7 g/dL (14.1-18.0); Lymphocytes # 1.3 K/mm3 (0.7-4.5); Lymphocytes % 14.1 % (10-50); Mean Corpuscular HGB Conc 33.6 g/dL (31.8-35.4); Mean Corpuscular Hemoglobin 32.1 pg (27.0-31.2); Mean Corpuscular Volume 95.5 fl (80-94); Mean Platelet Volume 10.5 fl (7.4-10.4); Monocytes # 1.1 K/mm3 (0.1-1.0); Monocytes % 12.5 % (1.7-9.3); Neutrophils # 4.4 K/mm3 (1.8-7.8); Platelet Count 365 K/mm3 (142-424); Red Blood Count 3.33 M/mm3 (4.60-6.20)
[2024-09-03] MEDS: IPRATROPIUM/ALBUTEROL 3 ML NEB IH (15:37)
--- NOTE | 2024-09-03 15:38 | PC.NURSE ---
pt reports the atropine gave him a severe NDIAYE. gave a verbal order for torodol.
[2024-09-03] MEDS: KETOROLAC 30MG/ML VIAL 15 MG IV (15:42)
[2024-09-03 15:44] LABS: Alanine Aminotransferase 26 U/L (12-78); Albumin Level 4.1 g/dl (3.5-5.0); Albumin/Globulin Ratio 1.5 (1.1-1.8); Alkaline Phosphatase 136 U/L (38-126); Anion Gap 11.1 mEq/L (5-15); Aspartate Amino Transferase 29 U/L (17-59); Bilirubin,Total 0.3 mg/dl (0.2-1.3); Blood Urea Nitrogen 21 mg/dl (9-20); Calcium 8.9 mg/dl (8.4-10.2); Carbon Dioxide 28 mmol/L (22.0-30.0); Chloride 103 mmol/L (98-107); Creatinine Clearance Estimated 64 mL/min (50-200); Estimated Glomerular Filt Rate 57 ml/min (>60); GFR (African American) 69 ML/MIN (>60); Globulin 2.7 g/dL (1.3-3.2); Glucose 65 mg/dl (74-100); Magnesium 1.2 mg/dl (1.6-2.3); Phosphorous 3.2 mg/dl (2.5-4.5); Potassium 4.1 mmoL/L (3.5-5.1); Sodium 138 mmol/L (136-145); Total Protein,Serum 6.8 g/dl (6.3-8.2)
[2024-09-03 16:01] LABS: Troponin I 0.42 ng/ml (0.00-0.034)
[2024-09-03] MEDS: ASPIRIN 325MG TABLET 325 MG PO (16:12)
--- NOTE | 2024-09-03 16:14 | PC.NURSE ---
speaking with Nacho foreman [facility] to dose heparin drip and bolus heparin
[2024-09-03] MEDS: HEPARIN DRIP CONSULT 1 EACH NOTAPPLIC (16:15)
--- NOTE | 2024-09-03 16:18 | PC.NURSE ---
Myself and Dr. Avendano went bedside to explain the need for admission. pt is adament that he is not staying but will come back in the morning. Dr. Avendano explained the risks of leaving the hospital. The pt still states he is leaving and verbalizes his understanding of risks.
--- NOTE | 2024-09-03 16:34 | PC.NURSE ---
speaking with pt
--- NOTE | 2024-09-03 16:53 | PC.NURSE ---
attempted to restart IV, pt states he is unsure if he is staying or not. wants to wait on IV
--- NOTE | 2024-09-03 17:00 | PC.NURSE ---
Pt reports that he isn't staying as an inpatient.
--- NOTE | 2024-09-03 17:01 | PC.NURSE ---
pt decided to leave against medical advice. pt instructed on return precautions. pt states that he is going to followup with dr michelle.
[2024-09-03 17:19] LABS: PTT Heparin (inpatient only) 26.7 Seconds (50-75)
[2024-09-03 17:22] LABS: Free T4 (Free Thyroxine) 1.25 ng/dl (0.78-2.19)
[2024-09-03 17:29] LABS: D-Dimer 0.44 ug/mL (0.0-0.5)
[2024-09-03 17:36] LABS: Thyroid Stimulating Hormone 2.97 uIU/mL (0.465-4.68)
[2024-09-03 17:43] LABS: HIV Combo NEGATIVE (Negative)
[2024-09-03 17:51] LABS: Hepatitis C Ab Qual. W/ RFX NEGATIVE (Negative)
== END 2024-09-03 17:19 | disposition left against medical advice (07) ==
LOC: UTC 13:35 → ER 14:53
PROVIDERS: Emergency Provider Emergency Medicine; PCP Internal Medicine
DX: R06.02 Shortness of breath (principal); R00.1 Bradycardia, unspecified; R79.89 Other specified abnormal findings of blood chemistry; R09.89 Other specified symptoms and signs involving the circulatory and respiratory systems; R22.43 Localized swelling, mass and lump, lower limb, bilateral; R05.9 Cough, unspecified; R55 Syncope and collapse; F17.210 Nicotine dependence, cigarettes, uncomplicated
CPT/HCPCS: 71045; 80053; 83735; 84100; 84439; 84443; 84484; 85025; 85378; 85730; 86803; 87389; 87636; 93005; 96374; 96375; 99291; J0461; J1885; J7620

== ENCOUNTER 2024-09-05 12:03 | Day surgery (SDC) | payer MEDICARE, SELFPAY ==
[2024-09-05] VITALS (13 sets, daily range): BP systolic 121–178; BP diastolic 73–98; PULSE 54–74; RESP 16–20; TEMP 36.6; O2SAT 90–98; BMI 20.2
--- NOTE | 2024-09-05 07:13 | IR_ITS ---
APPROVED REPORT Patient Location: Outpatient Registered Nurse Step Down: Alvaro Hansen, RT (R) PROCEDURES Catheter placed in the abdominal aorta Abdominal aortography Repositioning of the catheter in the abdominal aorta Bilateral iliofemoral runoff INDICATION Abnormal OWEN, [place] claudication class V- Informed consent was obtained prior to the procedure. COMPLICATIONS None Estimated Blood Loss: Less than 10 mls TECHNIQUE 1% lidocaine used anesthetize left groin the left femoral artery was accessed via the center technique a 5 [place] sheath is placed in the femoral artery. The pigtail catheter was advanced to the abdominal aorta and abdominal aortography was performed. The catheter was then repositioned bilateral iliofemoral runoff was performed. At the end the procedure the apparatus was removed the groin is reprepped closure change sheath was removed and hemostasis was achieved using Perclose device patient was transferred to the postop holding in stable condition ANGIOGRAPHIC RESULTS Infrarenal abdominal aorta is normal Bilateral common internal and external iliac arteries are normal Bilateral common femoral superficial femoral artery and profunda femoris arteries are normal Bilateral popliteal arteries are normal Bilateral three-vessel runoff below the knee IMPRESSION Normal macrovascular arteries as described above PLAN 1. Proceed with lower extremity amputation/care as determined by foot and ankle surgery service 2. It may be reasonable to obtain a thoracic CTA to completely exclude atheromatous debris which could be causing embolism. 3. Patient had bilaterally normal +2 femoral pulses therefore hemodynamic obstruction in the thoracic area is unlikely Electronically signed by : Severino Dial MD 09/05/2024 12:05:25
--- NOTE | 2024-09-05 08:25 | CA_ITS ---
APPROVED REPORT EXAM: Comprehensive 2D, Doppler, and color-flow Echocardiogram Nurse Obgyn: Desiree Sawant RT(R) Ht: 6 ft 3 in Wt: 162lbs BSA: 2.01 BP: 126/75 mmHg Indications: SOB, bradycardia, abn EKG, hx colon cancer, smoker, fatigue. 2D Dimensions Left Atrium 3.50 cm M: 3.0 - 4.0 LVEF (Lazcano's) 68.80 % M: 52 - 72 LVOT 2.09 cm (M/F) 1.5-2.5 LV Volume 128.90 mL M: 62 - 150 LV Volume Index 64.1 mL/m2 M: 34 - 74 EF AP4 65.90 % EF AP2 66.7 % EF BP 68.8 % GL Strain -24.3 % M-Mode Dimensions RVDd 3.41 cm (0.9-2.6) LVDd 4.62 cm (3.5-5.7) Ao Diam 3.45 cm (2.0-3.7) LVDs 3.41 cm (3.5-5.7) IVSd 0.88 cm (0.6-1.1) PWd 1.12 cm (0.6-1.1) EF (Teich) 51.40% FS 26.20% EDV (Teich) 98.30 mL TAPSE 3.59 (<1.7) ESV (Teich) 47.80 mL LV Diastology E Decel Time 231 (160-240 msec) E/A Ratio 1.2 MED E' 6.2 (>= 7 cm/sec) E'/MED E' Ratio 12.81 (<= 14) LAT E' 10.8 (>= 10 cm/sec) E/LAT E' Ratio 7.35 (<= 14) Mitral Valve MV E Max Harish. 79.0 (40-130 cm/s) MV A Velocity 68.0 (40-130 cm/s) E/A Ratio 1.17 MV Decel. Time 231 (160-240 ms) Tricuspid Valve TR P. Velocity 343.00 cm/s RAP Estimate 10.00 mmHg RVSP 56.90 mmHg Left Ventricle The left ventricle is normal size. The left ventricular systolic function is normal. The left ventricular ejection fraction is within the normal range. There is increased LV wall thickness. The septum is asynchronous. There is mild hypokinesis of the basal inferior LV wall. The left ventricular diastolic function is normal. LVEF is 55%. Right Ventricle The right ventricle is normal size. The right ventricular systolic function is normal. Atria The left atrium size is normal. The right atrium size is normal. There is no Doppler evidence of interatrial shunt. Aortic Valve Aortic valve is mildly thickened. There is no aortic valvular stenosis. Trace aortic regurgitation is present. Mitral Valve The mitral valve is normal in structure. No evidence of mitral valve stenosis. Mild mitral regurgitation. Tricuspid Valve Tricuspid valve is grossly normal in structure and function. Mild tricuspid regurgitation. RVSP is 35-40 mmHg. Pulmonic Valve The pulmonary valve is normal in structure. Trace pulmonic regurgitation. Great Vessels The aortic root is normal in size. The ascending aorta is not well-visualized. IVC is normal in size and collapses >50% with inspiration. Pericardium There is no pericardial effusion. Other Information Study Quality: Fair Conclusion Normal biventricular systolic function. The septum is asynchronous. There is mild hypokinesis of the basal inferior LV wall. Mild TR, mild MR. Elevated RVSP 35-40 mmHg. In the setting of basal inferior wall hypokinesis with no underlying significant coronary disease, further evaluation with cardiac MRI (cardiomyopathy protocol) is suggested to evaluate for non-ischemic etiologies of wall motion abnormalities. Electronically signed by : Antonietta Ramos MD 09/05/2024 11:58:39
[2024-09-05 10:03] LABS: Basophils # 0.1 K/mm3 (0-0.2); Basophils % 0.8 % (0.1-2.0); Eosinophils # 1.8 K/mm3 (0.0-0.4); Eosinophils % 17.2 % (0.1-12.0); Hematocrit 29.3 % (42.0-52.0); Hemoglobin 9.9 g/dL (14.1-18.0); Lymphocytes # 0.9 K/mm3 (0.7-4.5); Lymphocytes % 8.3 % (10-50); Mean Corpuscular HGB Conc 33.8 g/dL (31.8-35.4); Mean Corpuscular Hemoglobin 32.6 pg (27.0-31.2); Mean Corpuscular Volume 96.4 fl (80-94); Mean Platelet Volume 10.8 fl (7.4-10.4); Monocytes # 1.2 K/mm3 (0.1-1.0); Monocytes % 11.5 % (1.7-9.3); Neutrophils # 6.6 K/mm3 (1.8-7.8); Neutrophils % 61.8 % (37.0-80.0); Platelet Count 372 K/mm3 (142-424); Red Blood Count 3.04 M/mm3 (4.60-6.20); Red Cell Distribution Width 14.5 % (11.5-17.5); White Blood Count 10.7 K/mm3 (4.8-10.8)
[2024-09-05 10:04] LABS: Chloride 105 mmol/L (98-107); Potassium 3.3 mmoL/L (3.5-5.1); Sodium 140 mmol/L (136-145)
[2024-09-05 10:07] LABS: Blood Urea Nitrogen 23 mg/dl (9-20); Creatinine Clearance Estimated 61 mL/min (50-200); Estimated Glomerular Filt Rate 52 ml/min (>60); GFR (African American) 63 ML/MIN (>60)
[2024-09-05] MEDS: diphenhydrAMINE 50MG/ML VIAL 50 MG IV (10:07)
[2024-09-05] MEDS: LIDOCAINE 1% 10ML MDV 20 ML IJ (10:07)
[2024-09-05] MEDS: HEPARIN 1,000 UNITS/ML 10ML VIAL (CATH LAB) 10000 UNIT IV (10:07)
[2024-09-05 10:08] LABS: Anion Gap 12.3 mEq/L (5-15); Calcium 8.5 mg/dl (8.4-10.2); Carbon Dioxide 26 mmol/L (22.0-30.0); Glucose 71 mg/dl (74-100)
[2024-09-05] MEDS: NITROGLYCERIN 800MCG/8ML SYR (CATH LAB) 800 MCG IA (10:08)
[2024-09-05] MEDS: 0.9 % SODIUM CHLORIDE 500 ML 25 ML IV (10:08)
[2024-09-05] MEDS: VERAPAMIL 2.5MG/ML 2ML VIAL 2.5 MG IV (10:08)
[2024-09-05] MEDS: HEPARIN 1,000 UNITS/500ML NS (CATH LAB) 3000 UNIT IV (10:09)
[2024-09-05] MEDS: FENTANYL 100MCG/2ML VIAL 50 MCG IV (10:11)
[2024-09-05] MEDS: MIDAZOLAM HCL 1MG/ML 5ML VIAL 1 MG IV (10:11)
[2024-09-05] MEDS: ONDANSETRON 4MG/2ML VIAL 4 MG IV (12:35)
[2024-09-05] MEDS: IOPAMIDOL-370 (76%);100ML BOTTLE 60 ML IV (12:45)
== END 2024-09-05 14:00 | disposition home or self-care (01) ==
PROVIDERS: PCP Internal Medicine; Visit Provider Internal Medicine
DX: I25.10 Atherosclerotic heart disease of native coronary artery without angina pectoris (principal); I45.5 Other specified heart block; R06.00 Dyspnea, unspecified; R94.31 Abnormal electrocardiogram [ECG] [EKG]; R60.9 Edema, unspecified; R06.02 Shortness of breath; R79.89 Other specified abnormal findings of blood chemistry; R00.1 Bradycardia, unspecified; F17.210 Nicotine dependence, cigarettes, uncomplicated; I25.2 Old myocardial infarction; Z82.49 Family history of ischemic heart disease and other diseases of the circulatory system
CPT/HCPCS: 80048; 85025; 93306; 93458; 99152; C1725; C1769; J1200; J1644; J2250; J2405; J3010; Q9967